=== PATIENT | female | born 1935 | race Caucasian/White ===

== ENCOUNTER 2016-11-14 18:59 | Inpatient (IN) | payer MEDICARE, BC ==
[~2016-11-14] VITALS: Ht 165.1 cm; Wt 72.3 kg
[2016-11-14 19:26] VITALS: BP 184/77
--- NOTE | 2016-11-14 19:40 | PDOC ---
Exam Guzman Demential Exam: Guzman Note: Please also refer to the separate dictated note~for this date of service dictated separately.~Patient seen individually. Discussed the patient with Nursing staff reviewed the chart.~Reviewed interim history and current functioning. Reviewed vital signs,~Labs/ Radiology~and current medications noted below. Continue current treatment with the changes noted in the dictated addendum note Assessment: Vital Signs: Vital Signs Date Time Temp Pulse Resp B/P (MAP) Pulse Ox O2 Delivery O2 Flow Rate FiO2 11/14/16 19:26 97.3 76 18 184/77 (112) 98 Room Air KARLEE GRIFFIN MD Nov 14, 2016 19:40
[2016-11-14] MEDS ORDERED: FLUO20CA16 PO (19:41)
[2016-11-14] MEDS ORDERED: ESTR42.53 VG (19:41)
[2016-11-14] MEDS ORDERED: INDA1.25 PO (19:41)
[2016-11-14] MEDS ORDERED: FISH12002 PO (19:41)
[2016-11-14] MEDS ORDERED: MEMA10TA PO (19:41)
[2016-11-14] MEDS ORDERED: METF500T4 PO (19:41)
[2016-11-14] MEDS ORDERED: IRBE300T3 PO (19:41)
[2016-11-14] MEDS ORDERED: AMOX500C PO (19:41)
[2016-11-14] MEDS ORDERED: CHOL10003 PO (19:41)
[2016-11-14] MEDS ORDERED: LUTE10TA2 PO (19:41)
[2016-11-14] MEDS ORDERED: ASPI81TA50 PO (19:41)
[2016-11-14] MEDS ORDERED: MAGN250T9 PO (19:41)
[2016-11-14] MEDS ORDERED: CYCL1DRO OU (19:41)
[2016-11-14] MEDS ORDERED: CYAN500T PO (19:41)
[2016-11-14] MEDS ORDERED: LEVO100T5 PO (19:41)
[2016-11-14] MEDS ORDERED: COCONUT OIL PO (19:41)
[2016-11-14] MEDS ORDERED: METHYL SALICYLATE/MENTHOL TOPICAL OINTMENT 29GM TUBE. TP PRN (19:45)
[2016-11-14] MEDS ORDERED: ACETAMINOPHEN 325 MG TABLET PO PRN (19:45)
[2016-11-14] MEDS ORDERED: MAG HYDROX/AL HYDROX/SIMETH 30 ML ORAL.SUSP PO PRN (19:45)
[2016-11-14] MEDS: cycloSPORINE 0.05% OPTH 1 DROP DROPERETTE OU SCH (20:21)
[2016-11-14] MEDS: MEMANTINE 10 MG TABLET. PO SCH (20:21)
[2016-11-14] MEDS: OMEGA-3 FATTY ACIDS/FISH OIL 1,000 MG CAPSULE. PO SCH (20:21)
[2016-11-14 20:41] LABS: BASO # 0.1 x10^3/uL (0.0-0.2); BASO % 1 % (0-3); EOS % 1 % (0-3); HEMATOCRIT 38.2 % (36.0-47.0); HEMOGLOBIN 12.6 g/dL (12.0-15.5); LYMPH # 1.8 x10^3/uL (1.0-4.8); LYMPH % 20 % (24-48); MEAN CORPUSCULAR HEMOGLOBIN 28 pg (25-35); MEAN CORPUSCULAR HGB CONC 33 g/dL (31-37); MEAN CORPUSCULAR VOLUME 84 fL (79-100); MONO # 0.6 x10^3/uL (0.0-1.1); MONO % 7 % (0-9); NEUT # 6.5 x10^3uL (1.8-7.7); NEUT % 72 % (31-73); PLATELET COUNT 300 x10^3/uL (140-400); RED BLOOD COUNT 4.53 x10^6/uL (3.50-5.40); RED CELL DISTRIBUTION WIDTH 13.9 % (11.5-14.5)
[2016-11-14 20:53] LABS: CALCIUM 9.1 mg/dL (8.5-10.1); CREATININE 0.6 mg/dL (0.6-1.0); GFR 95.7; MAGNESIUM 2.2 mg/dL (1.8-2.4); POTASSIUM 3.7 mmol/L (3.5-5.1); TOTAL BILIRUBIN 0.4 mg/dL (0.2-1.0); TOTAL PROTEIN 7.9 g/dL (6.4-8.2)
[2016-11-14] MEDS ORDERED: PRAV80TA2 PO (21:55)
[2016-11-14] MEDS ORDERED: UBID100C26 PO (21:55)
[2016-11-15 05:44] VITALS: BP 185/84
[2016-11-15] MEDS: LEVOTHYROXINE 100 MCG TABLET PO SCH (06:00)
--- NOTE | 2016-11-15 06:03 | EKG ---
[address] [address] Test Date: 2016-11-15 Test Time: 05:32:43 Pat Name: HERIBERTO STARKS Department: Room: [address] [place] [address] Gender: F Hat Sizer: : 1935 Requested By: KARLEE GRIFFIN Order Number: [id number] Reading MD: Celestino Rick Measurements Intervals [place] Rate: 80 P: 90 AL: 172 QRS: 49 QRSD: 76 T: 46 QT: 390 QTc: 453 Interpretive Statements SINUS RHYTHM POOR R-WAVE PROGRESSION Electronically Signed On 11-22-2016 15:40:13 CDT by Celestino Rick
[2016-11-15] MEDS: metFORMIN 500 MG TABLET PO SCH ×3 (08:00→16:33)
[2016-11-15] MEDS: MEMANTINE 10 MG TABLET. PO SCH ×2 (08:50→19:51)
[2016-11-15] MEDS: cycloSPORINE 0.05% OPTH 1 DROP DROPERETTE OU SCH ×3 (08:50→19:51)
[2016-11-15] MEDS: OMEGA-3 FATTY ACIDS/FISH OIL 1,000 MG CAPSULE. PO SCH ×3 (08:50→19:51)
[2016-11-15] MEDS: UBIDECARENONE 50 MG CAPSULE. PO SCH ×2 (08:54→09:00)
[2016-11-15] MEDS: PRAVASTATIN 20 MG TABLET. PO SCH ×2 (08:55→09:00)
[2016-11-15] MEDS: LOSARTAN 50 MG TABLET. PO SCH (08:55)
[2016-11-15] MEDS: MAGNESIUM OXIDE 400 MG TABLET PO SCH (08:55)
[2016-11-15] MEDS: CHOLECALCIFEROL (VITAMIN D3) 1,000 UNIT TABLET PO SCH ×2 (08:56→09:00)
[2016-11-15] MEDS: ASPIRIN ENTERIC COATED 81 MG TABLET.DR. PO SCH ×2 (08:56→09:00)
[2016-11-15] MEDS: CYANOCOBALAMIN (VITAMIN B-12) 250 MCG TABLET PO SCH ×2 (08:56→09:00)
[2016-11-15] MEDS: FLUoxetine HCL 20 MG CAPSULE PO SCH (08:56)
[2016-11-15] MEDS: INDAPAMIDE 1.25 MG TABLET PO SCH (08:58)
[2016-11-15] MEDS ORDERED: LUTEIN 10 MG PO SCH (09:00)
[2016-11-15] MEDS ORDERED: FLUoxetine HCL 20 MG CAPSULE PO SCH (09:00)
[2016-11-15 11:14] LABS: THYROID STIM HORMONE (TSH) 3.521 uIU/mL (0.358-3.740)
[2016-11-15 15:53] VITALS: BP 178/80
[2016-11-15 16:43] LABS: BILIRUBIN,URINE NEG (NEG); CLARITY,URINE TURBID; COLOR,URINE YELLOW; GLUCOSE,URINE NEG (NEG); NITRITE,URINE NEG (NEG); UROBILINOGEN,URINE 0.2 mg/dL (0.2 mg/dL)
[2016-11-15 16:44] LABS: BACTERIA,URINE 0 /HPF (0-FEW); SQUAMOUS EPITHELIAL CELL,UR FEW /LPF
[2016-11-15 16:45] LABS: AMORPHOUS SEDIMENT,UR PRESENT /HPF
[2016-11-15] MEDS ORDERED: ACETAMINOPHEN 325 MG TABLET PO PRN (17:36)
[2016-11-15 18:08] LABS: T3 TOTAL 85 ng/dL (71-180); THYROXINE 9.1 ug/dL (4.5-12.0)
--- NOTE | 2016-11-15 19:48 | PDOC ---
Exam Guzman Demential Exam: Guzman Note: Please also refer to the separate dictated note~for this date of service dictated separately.~Patient seen individually. Discussed the patient with Nursing staff reviewed the chart.~Reviewed interim history and current functioning. Reviewed vital signs,~Labs/ Radiology~and current medications noted below. Continue current treatment with the changes noted in the dictated addendum note Assessment: Vital Signs: Vital Signs Date Time Temp Pulse Resp B/P (MAP) Pulse Ox O2 Delivery O2 Flow Rate FiO2 11/15/16 15:53 98.9 77 18 178/80 (112) 97 11/14/16 19:26 Room Air I&O Intake and Output 11/15/16 07:00 Intake Total 150 ml Balance 150 ml Intake Oral 150 ml # Voids 1 Labs: Laboratory Tests Test 11/15/16 07:07 11/15/16 11:08 11/15/16 16:04 11/15/16 16:57 Glucose (Fingerstick) 118 mg/dL (70-99) H 211 mg/dL (70-99) H 95 mg/dL (70-99) Urine Collection Type Unknown Urine Color Yellow Urine Clarity Turbid Urine pH 7.0 Urine Specific [place] 1.020 Urine Protein Neg (NEG-TRACE) Urine Glucose (UA) Neg mg/dL (NEG) Urine Ketones (Stick) Neg mg/dL (NEG) Urine Blood Neg (NEG) Urine Nitrite Neg (NEG) Urine Bilirubin Neg (NEG) Urine Urobilinogen Dipstick 0.2 mg/dL (0.2 mg/dL) Urine Leukocyte Esterase Small (NEG) Urine RBC 3-5 /HPF (0-2) Urine WBC 11-20 /HPF (0-4) Urine Squamous Epithelial Cells Few /LPF Urine Amorphous Sediment Present /HPF Urine Bacteria 0 /HPF (0-FEW) Urine Mucus Mod /LPF Test 11/15/16 19:08 Glucose (Fingerstick) 126 mg/dL (70-99) H Current Medications: Meds: Current Medications Acetaminophen (Tylenol) 650 mg PRN Q6HRS PRN PO PAIN / TEMP; Start 11/14/16 at 19:45; Stop 11/15/16 at 17:36; Status DC Multi-Ingredient Ointment (Analgesic [place]) 1 gail PRN QID PRN TP MUSCLE PAIN; Start 11/14/16 at 19:45 Al Hydroxide/Mg Hydroxide (Mylanta Plus Xs) 15 ml PRN AFTMEALHC PRN PO DYSPEPSIA; Start 11/14/16 at 19:45 Magnesium Hydroxide (Milk Of Magnesia) 2,400 mg PRN QHS PRN PO CONSTIPATION; Start 11/14/16 at 19:45 Fluoxetine HCl (PROzac) 20 mg DAILY PO ; Start 11/15/16 at 09:00; Stop 11/15/16 at 09:00; Status DC Memantine (Namenda) 10 mg BID PO Last administered on 11/15/16 08:50; Start 11/14/16 at 21:00 Aspirin (Aspirin Enteric Coated) 81 mg DAILY PO ; Start 11/15/16 at 09:00 Vitamin D (Vitamin D3) 1,000 unit DAILY PO ; Start 11/15/16 at 09:00 Vitamin D (Vitamin D3) 50,000 unit WEEKLY PO ; Start 11/21/16 at 09:00; Stop 11/21 at 09:00; Status DC Cyclosporine (Restasis) 1 drop BID OU Last administered on 11/14/16 20:21; Start 11/14/16 at 21:00 Estradiol (Estrace) 1 gail 3X/WEEK VG ; Start 11/16/16 at 09:00 Indapamide (Lozol) 1.25 mg DAILY PO Last administered on 11/15/16 08:58; Start 11/15/16 at 09:00 Levothyroxine Sodium (Synthroid) 100 mcg DAILY06 PO Last administered on 06:00; Start 11/15/16 at 06:00 Metformin HCl (Glucophage) 500 mg BIDWMEALS PO Last administered on 11/15/16 16 :33; Start 11/15/16 at 08:00 Cyanocobalamin (Vitamin B-12) 500 mcg DAILY PO ; Start 11/15/16 at 09:00 Fish Oil (Fish Oil) 1,000 mg BID PO Last administered on 11/14/16 20:21; Start 11/14/16 at 21:00 Losartan Potassium (Cozaar) 100 mg DAILY PO Last administered on 11/15/16 08:55 ; Start 11/15/16 at 09:00 Non-Formulary Medication 10 mg DAILY PO ; Start 11/15/16 at 09:00; Stop 11/15/16 at 09:00; Status DC Magnesium Oxide (Magnesium Oxide) 200 mg DAILY PO Last administered on 08:55; Start 11/15/16 at 09:00 Fluoxetine HCl (PROzac) 40 mg DAILY PO Last administered on 11/15/16 08:56; Start 11/15/16 at 09:00 Vitamin D (Vitamin D3) 50,000 unit Q2WKS PO ; Start 11/21/16 at 09:00 Pravastatin Sodium (Pravachol) 80 mg DAILY PO ; Start 11/15/16 at 09:00 Coenzyme Q10 (Coenzyme Q10) 100 mg DAILY PO ; Start 11/15/16 at 09:00 Acetaminophen (Tylenol) 650 mg PRN Q6HRS PRN PO PAIN / TEMP; Start 11/15/16 at 17:36 Active Scripts Active Reported Coq-10 (Ubidecarenone) 100 Mg Capsule 100 Mg PO DAILY Pravastatin Sodium 80 Mg Tablet 80 Mg PO DAILY Restasis (Cyclosporine) 1 Each Droperette 1 Drop OU BID Namenda (Memantine Hcl) 10 Mg Tablet 10 Mg PO BID Metformin Hcl 500 Mg Tablet 500 Mg PO BIDWMEALS Magnesium Oxide 250 Mg Tablet 250 Mg PO DAILY Lutein 10 Mg Tablet 10 Mg PO DAILY Levothyroxine Sodium 100 Mcg Tablet 100 Mcg PO DAILY06 [place] 3-6-9 1,200 mg Softgel (Fish Oil/Borage/Flax/Om3,6,9#1) 1,200 Mg Capsule 1 ,200 Mg PO BID Amoxicillin 500 Mg Capsule 500 Mg PO PRN DAILY PRN 4 Days [Coconut Oil] 1 Tsp PO BID Vitamin D3 (Cholecalciferol (Vitamin D3)) 50,000 Unit Capsule 50,000 Unit PO Q2WKS Vitamin D3 (Cholecalciferol (Vitamin D3)) 1,000 Unit Tablet 2,000 Unit PO DAILY Vitamin B-12 (Cyanocobalamin (Vitamin B-12)) 500 Mcg Tablet 500 Mcg PO DAILY Prozac (Fluoxetine Hcl) 20 Mg Capsule 40 Mg PO DAILY Irbesartan 300 Mg Tablet 300 Mg PO DAILY Indapamide 1.25 Mg Tablet 1.25 Mg PO DAILY Estrace (Estradiol) 42.5 Gm Cream.appl 1 Gm VG 3X/WEEK Aspir-Low (Aspirin) 81 Mg Tablet.dr 81 Mg PO DAILY Diagnosis: Problems: (1) Anxiety disorder (2) Psychotic depression (3) Major depressive disorder, recurrent episode (4) Psychosis, atypical (5) Mild cognitive disorder KARLEE GRIFFIN MD Nov 15, 2016 19:48
--- NOTE | 2016-11-15 22:55 | HP ---
ADMIT DATE: 11/15/2016 PSYCHIATRIC ADMISSION HISTORY/EVALUATION This note covers the elements not covered in my initial of 11/15/2016. IDENTIFYING DATA: The patient is an 81-year-old female referred from [facility] where she presented from home in [facility] on account of increasing delusional thought processes, stating that she was . The patient has been tearful, anxious, resistive, and increasingly paranoid. The patient had been living at [facility] for a short period of time, has a lifelong history of depression and anxiety. This seems to have resurfaced with significant additional psychotic symptoms/delusions. The patient was unmanageable at the facility due to her presentation, had failed outpatient psychiatric interventions resulting in that referral to the ER and then admission at [facility] and then referral to us. The patient was seen individually evening of 11/15/2016, for this evaluation, discussed with the nursing staff, reviewed current and past records. CHIEF COMPLAINT: "I do not want to talk." HISTORY: The patient was anxious, tearful, would frequently shut her eyes as I met with her. She did participate in the assessment until one-point way she refused to talk any further and closed her eyes. HISTORY OF PRESENT ILLNESS: The patient has a history of depression, recurrent and moderate to severe with psychotic features. More recently, she has been stating she has been . She is delusional, anxious. She is having sleep and appetite changes. No active psychotic symptoms, suicidal or homicidal ideation. No clear history of bipolar disorder. She might have had some short-term memory deficits, but has been reasonably oriented from the information available. PAST PSYCHIATRIC HISTORY: Positive for recurrent major depressive disorder with psychotic features. The patient has a "lifelong history of anxiety and depression." PAST MEDICAL HISTORY: Hypertension, hyperlipidemia, diabetes mellitus, and hypothyroidism. ALLERGIES: LEVAQUIN, MACRODANTIN. CURRENT PSYCHOTROPICS: Prozac 40 mg a day, Namenda 10 mg twice a day. CODE STATUS: DNR. DIET: Regular. Ambulates with assistance or wheelchair. FAMILY HISTORY: Noncontributory. SOCIAL HISTORY: The patient has their adult children on the [facility]. No alcohol or drug abuse, physical, sexual or elder abuse history is noted. She is not known to be a perpetrator. MENTAL STATUS EXAM: The patient was seen individually evening of 11/15/2016. She was aware, it was 11/15/2016. She is depressed. On questioning admits to this, but frequently shuts her eyes. Insight, judgment, recent memory is impaired. Language function intact. Attention span short. Mood and affect depressed, delusional, intellect average. Insight limited, judgment marginal, but no active suicidal or homicidal ideation. IMPRESSION: Major depressive disorder, recurrent, severe with psychotic features; anxiety disorder, unspecified; impulse control disorder, unspecified; cognitive disorder, unspecified. Rest diagnoses as above. PLAN: Admit to the geropsychiatry unit at [facility]. I will see the patient daily individually from a psychiatric standpoint, medical followup per Dr. Mckinley/Dr. Morrell. We will observe the patient's baseline, then adjust her psychotropics. We will consider changing Prozac to Cymbalta as more effective SNRI antidepressants as opposed to the SSRI Prozac, continue Namenda, consider augmentation with Abilify, which would additionally act as an atypical antipsychotic. We will consider all of this post-baseline assessment. KARLEE GRIFFIN MD DR: VENKAT/heron JOB#: [id number] / [id number]
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
[2016-11-16 02:09] LABS: HEMOGLOBIN A1C 6.1 % (4.8-5.6)
[2016-11-16] MEDS: LEVOTHYROXINE 100 MCG TABLET PO SCH (05:14)
[2016-11-16 05:58] VITALS: BP 188/98
[2016-11-16] MEDS: metFORMIN 500 MG TABLET PO SCH ×5 (07:44→17:00)
[2016-11-16] MEDS: PRAVASTATIN 20 MG TABLET. PO SCH (07:47)
[2016-11-16] MEDS: cycloSPORINE 0.05% OPTH 1 DROP DROPERETTE OU SCH ×2 (07:47→19:45)
[2016-11-16] MEDS: MAGNESIUM OXIDE 400 MG TABLET PO SCH (07:48)
[2016-11-16] MEDS: ASPIRIN ENTERIC COATED 81 MG TABLET.DR. PO SCH (07:48)
[2016-11-16] MEDS: CHOLECALCIFEROL (VITAMIN D3) 1,000 UNIT TABLET PO SCH (07:48)
[2016-11-16] MEDS: MEMANTINE 10 MG TABLET. PO SCH ×2 (07:48→19:45)
[2016-11-16] MEDS: FLUoxetine HCL 20 MG CAPSULE PO SCH (07:49)
[2016-11-16] MEDS: LOSARTAN 50 MG TABLET. PO SCH (07:50)
[2016-11-16] MEDS: CYANOCOBALAMIN (VITAMIN B-12) 250 MCG TABLET PO SCH (07:51)
[2016-11-16] MEDS: OMEGA-3 FATTY ACIDS/FISH OIL 1,000 MG CAPSULE. PO SCH ×2 (07:51→19:45)
[2016-11-16] MEDS: UBIDECARENONE 50 MG CAPSULE. PO SCH (07:51)
[2016-11-16] MEDS: INDAPAMIDE 1.25 MG TABLET PO SCH (07:51)
[2016-11-16] MEDS: ESTRADIOL 0.01% VAGINAL CREAM 42.5GM TUBE. VG SCH (08:20)
[2016-11-16 16:20] VITALS: BP 131/76
--- NOTE | 2016-11-16 18:28 | RAD ---
EXAM: CT head without contrast HISTORY: 989911.001 Mental status changes, confusion. No priors. COMPARISON: None. TECHNIQUE: Computed tomographic images of the head were obtained without contrast. PQRS compliance statement: One or more of the following individualized dose reduction techniques were utilized for this examination: 1. Automated exposure control 2. Adjustment of the mA and/or kV according to patient size 3. Use of iterative reconstruction technique FINDINGS: There is no acute intracranial process identified. Specifically, there are no intracranial blood products, extra-axial fluid collections, mass effect or midline shift. Ventricles and basilar cisterns are maintained. There are areas of decreased attenuation within the cerebral white matter, nonspecific and likely related to chronic small vessel disease. The visualized portions of the orbits, paranasal sinuses and mastoid air cells are unremarkable. No suspicious calvarial lesion is seen. IMPRESSION: No acute intracranial findings. Electronically signed by: Mayuri Khanna MD (11/16/2016 6:25 PM) [facility]
--- NOTE | 2016-11-16 20:02 | PDOC ---
Exam Guzman Demential Exam: Guzman Note: Please also refer to the separate dictated note~for this date of service dictated separately.~Patient seen individually. Discussed the patient with Nursing staff reviewed the chart.~Reviewed interim history and current functioning. Reviewed vital signs,~Labs/ Radiology~and current medications noted below. Continue current treatment with the changes noted in the dictated addendum note Assessment: Vital Signs: Vital Signs Date Time Temp Pulse Resp B/P (MAP) Pulse Ox O2 Delivery O2 Flow Rate FiO2 11/16/16 16:20 97.9 77 18 131/76 (94) 97 0.0 11/14/16 19:26 Room Air I&O Intake and Output 11/16/16 07:00 Intake Total 360 ml Balance 360 ml Intake Oral 360 ml # Bowel Movements 1 Labs: Laboratory Tests Test 11/16/16 07:52 11/16/16 11:45 11/16/16 17:15 11/16/16 19:13 Glucose (Fingerstick) 109 mg/dL (70-99) H 85 mg/dL (70-99) 120 mg/dL (70-99) H 196 mg/dL (70-99) H Current Medications: Meds: Current Medications Acetaminophen (Tylenol) 650 mg PRN Q6HRS PRN PO PAIN / TEMP; Start 11/14/16 at 19:45; Stop 11/15/16 at 17:36; Status DC Multi-Ingredient Ointment (Analgesic [place]) 1 gail PRN QID PRN TP MUSCLE PAIN; Start 11/14/16 at 19:45 Al Hydroxide/Mg Hydroxide (Mylanta Plus Xs) 15 ml PRN AFTMEALHC PRN PO DYSPEPSIA; Start 11/14/16 at 19:45 Magnesium Hydroxide (Milk Of Magnesia) 2,400 mg PRN QHS PRN PO CONSTIPATION; Start 11/14/16 at 19:45 Fluoxetine HCl (PROzac) 20 mg DAILY PO ; Start 11/15/16 at 09:00; Stop 11/15/16 at 09:00; Status DC Memantine (Namenda) 10 mg BID PO Last administered on 11/16/16 19:45; Start 11/14/16 at 21:00 Aspirin (Aspirin Enteric Coated) 81 mg DAILY PO Last administered on 11/16/16 07:48; Start 11/15/16 at 09:00 Vitamin D (Vitamin D3) 1,000 unit DAILY PO Last administered on 11/16/16 07:48 ; Start 11/15/16 at 09:00 Vitamin D (Vitamin D3) 50,000 unit WEEKLY PO ; Start 11/21/16 at 09:00; Stop 11/21 at 09:00; Status DC Cyclosporine (Restasis) 1 drop BID OU Last administered on 11/16/16 19:45; Start 11/14/16 at 21:00 Estradiol (Estrace) 1 gail 3X/WEEK VG ; Start 11/16/16 at 09:00 Indapamide (Lozol) 1.25 mg DAILY PO Last administered on 11/16/16 07:51; Start 11/15/16 at 09:00 Levothyroxine Sodium (Synthroid) 100 mcg DAILY06 PO Last administered on 05:14; Start 11/15/16 at 06:00 Metformin HCl (Glucophage) 500 mg BIDWMEALS PO Last administered on 11/15/16 16 :33; Start 11/15/16 at 08:00 Cyanocobalamin (Vitamin B-12) 500 mcg DAILY PO Last administered on 11/16/16 07 :51; Start 11/15/16 at 09:00 Fish Oil (Fish Oil) 1,000 mg BID PO Last administered on 11/16/16 19:45; Start 11/14/16 at 21:00 Losartan Potassium (Cozaar) 100 mg DAILY PO Last administered on 11/16/16 07:50 ; Start 11/15/16 at 09:00 Non-Formulary Medication 10 mg DAILY PO ; Start 11/15/16 at 09:00; Stop 11/15/16 at 09:00; Status DC Magnesium Oxide (Magnesium Oxide) 200 mg DAILY PO Last administered on 07:48; Start 11/15/16 at 09:00 Fluoxetine HCl (PROzac) 40 mg DAILY PO Last administered on 11/16/16 07:49; Start 11/15/16 at 09:00 Vitamin D (Vitamin D3) 50,000 unit Q2WKS PO ; Start 11/21/16 at 09:00 Pravastatin Sodium (Pravachol) 80 mg DAILY PO Last administered on 11/16/16 07: 47; Start 11/15/16 at 09:00 Coenzyme Q10 (Coenzyme Q10) 100 mg DAILY PO Last administered on 11/16/16t 07:51 ; Start 11/15/16 at 09:00 Acetaminophen (Tylenol) 650 mg PRN Q6HRS PRN PO PAIN / TEMP; Start 11/15/16 at 17:36 Clonidine HCl (Catapres Tts-2) 1 patch WEEKLY TD ; Start 11/17/16 at 09:00 Risperidone (RisperDAL) 0.25 mg HS SL ; Start 11/16/16 at 21:00 Active Scripts Active Reported Coq-10 (Ubidecarenone) 100 Mg Capsule 100 Mg PO DAILY Pravastatin Sodium 80 Mg Tablet 80 Mg PO DAILY Restasis (Cyclosporine) 1 Each Droperette 1 Drop OU BID Namenda (Memantine Hcl) 10 Mg Tablet 10 Mg PO BID Metformin Hcl 500 Mg Tablet 500 Mg PO BIDWMEALS Magnesium Oxide 250 Mg Tablet 250 Mg PO DAILY Lutein 10 Mg Tablet 10 Mg PO DAILY Levothyroxine Sodium 100 Mcg Tablet 100 Mcg PO DAILY06 [place] 3-6-9 1,200 mg Softgel (Fish Oil/Borage/Flax/Om3,6,9#1) 1,200 Mg Capsule 1 ,200 Mg PO BID Amoxicillin 500 Mg Capsule 500 Mg PO PRN DAILY PRN 4 Days [Coconut Oil] 1 Tsp PO BID Vitamin D3 (Cholecalciferol (Vitamin D3)) 50,000 Unit Capsule 50,000 Unit PO Q2WKS Vitamin D3 (Cholecalciferol (Vitamin D3)) 1,000 Unit Tablet 2,000 Unit PO DAILY Vitamin B-12 (Cyanocobalamin (Vitamin B-12)) 500 Mcg Tablet 500 Mcg PO DAILY Prozac (Fluoxetine Hcl) 20 Mg Capsule 40 Mg PO DAILY Irbesartan 300 Mg Tablet 300 Mg PO DAILY Indapamide 1.25 Mg Tablet 1.25 Mg PO DAILY Estrace (Estradiol) 42.5 Gm Cream.appl 1 Gm VG 3X/WEEK Aspir-Low (Aspirin) 81 Mg Tablet. 81 Mg PO DAILY Diagnosis: Problems: (1) Anxiety disorder (2) Psychotic depression (3) Major depressive disorder, recurrent episode (4) Psychosis, atypical (5) Mild cognitive disorder KARLEE GRIFFIN MD Nov 16, 2016 20:02
[2016-11-16] MEDS ORDERED: risperiDONE ORAL 1 MG/ML 30ml BOTTLE. SL SCH (21:00)
--- NOTE | 2016-11-17 01:15 | ACF ---
Admission Criteria Forms PSYCHIATRIC DISORDERS Clinical Indications for Inpatient Care (Place 'X' for any and all applicable criteria): Ongoing inpatient care may be needed for 1 or more of the following(1)(2)(3)(4)( 6)(7)(8): [ ]I. Danger to self or others not manageable at lower level of care. [ ]II. Grave disability (eg, inability to perform self care necessary at lower level of care) [ ]III. Agitation or inappropriate behavior interfering with care for primary condition (eg, attempting to discontinue lines or drains prematurely, unable to cooperate with respiratory care) [x]IV. Severe disability or disorder indicated by ALL of the following: [x]a) Severe behavioral health disorder-related symptoms or condition indicated by 1 or more of the following: [ ]i) Severe problem with cognition, memory, judgment, or impulse control [x]ii) Severe clinical manifestations (eg, hallucinations, delusions, other acute psychotic symptoms, soraya, extreme agitation or anxiety) [x]b) Patient management at lower level of care is not feasible until acute intervention or modification is initiated. Extended stay beyond goal length of stay for the primary condition may be needed untilALLof the following are present(1)(2)(3)(4)(722)(23): [ ]a) Danger to self or others is absent or manageable at lower level of care [ ]b) Behavior crisis management, including physical or chemical restraints, is required and is not available at a lower level of care. [ ]c) Behavioral symptoms (e.g., agitation, somnolence, inappropriate behavior) are present, and are not manageable at a lower level of care. [ ]d) Patient cannot understand follow-up treatment and crisis plan. [ ]e) Provider and supports are sufficiently available at lower level of care. [ ]f) Patient can participate (e.g., verify absence of plan for harm) and is in needed of monitoring. The original [facility] content created by [facility] [employer] has been revised. The portions of the content which have been revised are identified through the use of italic text, and [employer] has neither reviewed nor approved the modified material. All other unmodified content is copyright [facility] [employer]. Please see references footnoted in the original [facility] edition 2015 Admission Criteria Met?: Yes SOHAIL QUEVEDO Nov 17, 2016 01:15
[2016-11-17 06:21] VITALS: BP 179/79
[2016-11-17] MEDS: LEVOTHYROXINE 100 MCG TABLET PO SCH (06:34)
[2016-11-17] MEDS: metFORMIN 500 MG TABLET PO SCH ×4 (08:00→17:19)
[2016-11-17] MEDS: CYANOCOBALAMIN (VITAMIN B-12) 250 MCG TABLET PO SCH ×2 (08:17→09:00)
[2016-11-17] MEDS: MEMANTINE 10 MG TABLET. PO SCH ×3 (08:18→20:01)
[2016-11-17] MEDS: PRAVASTATIN 20 MG TABLET. PO SCH ×2 (08:18→09:00)
[2016-11-17] MEDS: FLUoxetine HCL 20 MG CAPSULE PO SCH ×2 (08:18→09:00)
[2016-11-17] MEDS: LOSARTAN 50 MG TABLET. PO SCH ×2 (08:18→09:00)
[2016-11-17] MEDS: OMEGA-3 FATTY ACIDS/FISH OIL 1,000 MG CAPSULE. PO SCH ×3 (08:19→20:00)
[2016-11-17] MEDS: UBIDECARENONE 50 MG CAPSULE. PO SCH ×2 (08:19→09:00)
[2016-11-17] MEDS: ASPIRIN ENTERIC COATED 81 MG TABLET.DR. PO SCH ×2 (08:20→09:00)
[2016-11-17] MEDS: MAGNESIUM OXIDE 400 MG TABLET PO SCH ×2 (08:20→09:00)
[2016-11-17] MEDS: CHOLECALCIFEROL (VITAMIN D3) 1,000 UNIT TABLET PO SCH ×2 (08:20→09:00)
[2016-11-17] MEDS: cycloSPORINE 0.05% OPTH 1 DROP DROPERETTE OU SCH ×3 (08:20→20:01)
[2016-11-17] MEDS: cloNIDine TTS-2 1 PATCH PATCH TD SCH (08:22)
[2016-11-17] MEDS: INDAPAMIDE 1.25 MG TABLET PO SCH ×2 (08:22→09:00)
[2016-11-17] MEDS ORDERED: CLON1PAT2 TD (12:14)
[2016-11-17 16:31] VITALS: BP 166/71
--- NOTE | 2016-11-17 21:51 | PN ---
DATE: 11/16/2016 PSYCHIATRIC PROGRESS NOTE This is a late entry for 11/16/2016, covers elements not covered in my initial note. SUBJECTIVE: I met with the patient at some length individually the evening of 11/16/2016. The patient slept 5 hours previous night. Appetite is fair. Often refuses medications. We will be checking a CT head since her psychologist mentioned he felt there has been a significant change in her mental status at [facility]. REVIEW OF SYSTEMS: No CV, , pulmonary, eye system symptoms on review. MENTAL STATUS EXAM: Oriented to herself and situation. She knew the year was 2016, professed she did not know the month. As the day before when I asked her, she certainly knew the month. Refuses medications at times, has started on clonidine patch for her hypertension. Somewhat dismissive as I met with her, and when I have asked her about orientation questions, she would ask those same questions back of me, "you tell me if you know it." Somewhat irritable. Speech is coherent, abstraction fair, computation impaired, language function intact. No active suicidal or homicidal ideation. Still depressed, tearful at times. She talked about living at the independent living at [facility]. LABORATORY DATA: Reviewed. IMPRESSION: Major depressive disorder with psychotic features; anxiety disorder, unspecified; cognitive disorder, unspecified. Rest unchanged. PLAN: Continue current psychotropics, start Risperdal 0.25 mg at bedtime. Maintain Prozac 40 mg a day, and Namenda 10 mg b.i.d. We will make further adjustments as clinically indicated. KARLEE GRIFFIN MD DR: VENKAT/heron JOB#: [id number] / [id number]
--- NOTE | 2016-11-17 22:20 | PDOC ---
Exam Guzman Demential Exam: Guzman Note: Please also refer to the separate dictated note~for this date of service dictated separately.~Patient seen individually. Discussed the patient with Nursing staff reviewed the chart.~Reviewed interim history and current functioning. Reviewed vital signs,~Labs/ Radiology~and current medications noted below. Continue current treatment with the changes noted in the dictated addendum note Assessment: Vital Signs: Vital Signs Date Time Temp Pulse Resp B/P (MAP) Pulse Ox O2 Delivery O2 Flow Rate FiO2 11/17/16 16:31 98.3 74 18 166/71 (102) 100 11/16/16 16:20 0.0 11/14/16 19:26 Room Air I&O Intake and Output 11/17/16 07:00 Intake Total 840 ml Balance 840 ml Intake Oral 840 ml Labs: Laboratory Tests Test 11/17/16 07:42 11/17/16 11:46 11/17/16 16:47 11/17/16 19:21 Glucose (Fingerstick) 113 mg/dL (70-99) H 113 mg/dL (70-99) H 113 mg/dL (70-99) H 111 mg/dL (70-99) H Current Medications: Meds: Current Medications Acetaminophen (Tylenol) 650 mg PRN Q6HRS PRN PO PAIN / TEMP; Start 11/14/16 at 19:45; Stop 11/15/16 at 17:36; Status DC Multi-Ingredient Ointment (Analgesic [place]) 1 gail PRN QID PRN TP MUSCLE PAIN; Start 11/14/16 at 19:45 Al Hydroxide/Mg Hydroxide (Mylanta Plus Xs) 15 ml PRN AFTMEALHC PRN PO DYSPEPSIA; Start 11/14/16 at 19:45 Magnesium Hydroxide (Milk Of Magnesia) 2,400 mg PRN QHS PRN PO CONSTIPATION; Start 11/14/16 at 19:45 Fluoxetine HCl (PROzac) 20 mg DAILY PO ; Start 11/15/16 at 09:00; Stop 11/15/16 at 09:00; Status DC Memantine (Namenda) 10 mg BID PO Last administered on 11/17/16 20:01; Start 11/14/16 at 21:00 Aspirin (Aspirin Enteric Coated) 81 mg DAILY PO Last administered on 11/16/16 07:48; Start 11/15/16 at 09:00 Vitamin D (Vitamin D3) 1,000 unit DAILY PO Last administered on 11/16/16 07:48 ; Start 11/15/16 at 09:00 Vitamin D (Vitamin D3) 50,000 unit WEEKLY PO ; Start 11/21/16 at 09:00; Stop 11/21 at 09:00; Status DC Cyclosporine (Restasis) 1 drop BID OU Last administered on 11/17/16 20:01; Start 11/14/16 at 21:00 Estradiol (Estrace) 1 gail 3X/WEEK VG ; Start 11/16/16 at 09:00 Indapamide (Lozol) 1.25 mg DAILY PO Last administered on 11/16/16 07:51; Start 11/15/16 at 09:00 Levothyroxine Sodium (Synthroid) 100 mcg DAILY06 PO Last administered on 06:34; Start 11/15/16 at 06:00 Metformin HCl (Glucophage) 500 mg BIDWMEALS PO Last administered on 11/15/16 16 :33; Start 11/15/16 at 08:00 Cyanocobalamin (Vitamin B-12) 500 mcg DAILY PO Last administered on 11/16/16 07 :51; Start 11/15/16 at 09:00 Fish Oil (Fish Oil) 1,000 mg BID PO Last administered on 11/17/16 20:00; Start 11/14/16 at 21:00 Losartan Potassium (Cozaar) 100 mg DAILY PO Last administered on 11/16/16 07:50 ; Start 11/15/16 at 09:00 Non-Formulary Medication 10 mg DAILY PO ; Start 11/15/16 at 09:00; Stop 11/15/16 at 09:00; Status DC Magnesium Oxide (Magnesium Oxide) 200 mg DAILY PO Last administered on 07:48; Start 11/15/16 at 09:00 Fluoxetine HCl (PROzac) 40 mg DAILY PO Last administered on 11/16/16 07:49; Start 11/15/16 at 09:00; Stop 11/17/16 at 19:20; Status DC Vitamin D (Vitamin D3) 50,000 unit Q2WKS PO ; Start 11/21/16 at 09:00 Pravastatin Sodium (Pravachol) 80 mg DAILY PO Last administered on 11/16/16 07: 47; Start 11/15/16 at 09:00 Coenzyme Q10 (Coenzyme Q10) 100 mg DAILY PO Last administered on 11/16/16 07:51 ; Start 11/15/16 at 09:00 Acetaminophen (Tylenol) 650 mg PRN Q6HRS PRN PO PAIN / TEMP; Start 11/15/16 at 17:36 Clonidine HCl (Catapres Tts-2) 1 patch WEEKLY TD Last administered on 11/17/16 08:22; Start 11/17/16 at 09:00 Risperidone (RisperDAL) 0.25 mg HS SL ; Start 11/16/16 at 21:00; Stop 11/17/16 at 19:21; Status DC Risperidone (RisperDAL) 0.25 mg DAILY SL ; Start 11/18/16 at 09:00 Duloxetine HCl (Cymbalta) 30 mg DAILY PO ; Start 11/18/16 at 09:00; Stop 11/21/16 at 08:59 Duloxetine HCl (Cymbalta) 60 mg DAILY PO ; Start 11/21/16 at 09:00 Active Scripts Active Reported Coq-10 (Ubidecarenone) 100 Mg Capsule 100 Mg PO DAILY Pravastatin Sodium 80 Mg Tablet 80 Mg PO DAILY Restasis (Cyclosporine) 1 Each Droperette 1 Drop OU BID Namenda (Memantine Hcl) 10 Mg Tablet 10 Mg PO BID Metformin Hcl 500 Mg Tablet 500 Mg PO BIDWMEALS Magnesium Oxide 250 Mg Tablet 250 Mg PO DAILY Lutein 10 Mg Tablet 10 Mg PO DAILY Levothyroxine Sodium 100 Mcg Tablet 100 Mcg PO DAILY06 [place] 3-6-9 1,200 mg Softgel (Fish Oil/Borage/Flax/Om3,6,9#1) 1,200 Mg Capsule 1 ,200 Mg PO BID Amoxicillin 500 Mg Capsule 500 Mg PO PRN DAILY PRN 4 Days [Coconut Oil] 1 Tsp PO BID Vitamin D3 (Cholecalciferol (Vitamin D3)) 50,000 Unit Capsule 50,000 Unit PO Q2WKS Vitamin D3 (Cholecalciferol (Vitamin D3)) 1,000 Unit Tablet 2,000 Unit PO DAILY Vitamin B-12 (Cyanocobalamin (Vitamin B-12)) 500 Mcg Tablet 500 Mcg PO DAILY Prozac (Fluoxetine Hcl) 20 Mg Capsule 40 Mg PO DAILY Irbesartan 300 Mg Tablet 300 Mg PO DAILY Indapamide 1.25 Mg Tablet 1.25 Mg PO DAILY Estrace (Estradiol) 42.5 Gm Cream.appl 1 Gm VG 3X/WEEK Aspir-Low (Aspirin) 81 Mg Tablet.dr 81 Mg PO DAILY Diagnosis: Problems: (1) Anxiety disorder (2) Psychotic depression (3) Major depressive disorder, recurrent episode (4) Psychosis, atypical (5) Mild cognitive disorder KARLEE GRIFFIN MD Nov 17, 2016 22:20
[2016-11-18] MEDS: LEVOTHYROXINE 100 MCG TABLET PO SCH (06:01)
[2016-11-18 06:22] VITALS: BP 175/81
[2016-11-18] MEDS: MEMANTINE 10 MG TABLET. PO SCH ×4 (08:03→20:47)
[2016-11-18] MEDS: metFORMIN 500 MG TABLET PO SCH ×2 (08:03→17:00)
[2016-11-18] MEDS: UBIDECARENONE 50 MG CAPSULE. PO SCH ×2 (08:03→09:00)
[2016-11-18] MEDS: cycloSPORINE 0.05% OPTH 1 DROP DROPERETTE OU SCH ×3 (08:03→20:47)
[2016-11-18] MEDS: LOSARTAN 50 MG TABLET. PO SCH ×2 (08:04→09:00)
[2016-11-18] MEDS: MAGNESIUM OXIDE 400 MG TABLET PO SCH ×2 (08:04→09:00)
[2016-11-18] MEDS: CHOLECALCIFEROL (VITAMIN D3) 1,000 UNIT TABLET PO SCH ×2 (08:04→09:00)
[2016-11-18] MEDS: CYANOCOBALAMIN (VITAMIN B-12) 250 MCG TABLET PO SCH ×2 (08:05→09:00)
[2016-11-18] MEDS: OMEGA-3 FATTY ACIDS/FISH OIL 1,000 MG CAPSULE. PO SCH ×4 (08:05→20:47)
[2016-11-18] MEDS: ASPIRIN ENTERIC COATED 81 MG TABLET.DR. PO SCH ×2 (08:05→09:00)
[2016-11-18] MEDS: PRAVASTATIN 20 MG TABLET. PO SCH ×2 (08:05→09:00)
[2016-11-18] MEDS: DULoxetine HCL 30 MG CAPSULE.DR PO SCH ×2 (08:07→09:00)
[2016-11-18] MEDS: INDAPAMIDE 1.25 MG TABLET PO SCH ×2 (08:07→09:00)
[2016-11-18] MEDS: risperiDONE ORAL 1 MG/ML 30ml BOTTLE. SL SCH (08:09)
[2016-11-18 09:12] LABS: ALBUMIN 3.3 g/dL (3.4-5.0); ALBUMIN/GLOBULIN RATIO 0.9 (1.0-1.7); CREATININE 0.7 mg/dL (0.6-1.0); GFR 80.1; POTASSIUM 4.1 mmol/L (3.5-5.1); TOTAL BILIRUBIN 0.4 mg/dL (0.2-1.0); TOTAL PROTEIN 6.9 g/dL (6.4-8.2)
[2016-11-18 15:52] VITALS: BP 115/73
--- NOTE | 2016-11-18 19:52 | PDOC ---
Exam Guzman Demential Exam: Guzman Note: Please also refer to the separate dictated note~for this date of service dictated separately.~Patient seen individually. Discussed the patient with Nursing staff reviewed the chart.~Reviewed interim history and current functioning. Reviewed vital signs,~Labs/ Radiology~and current medications noted below. Continue current treatment with the changes noted in the dictated addendum note Assessment: Vital Signs: Vital Signs Date Time Temp Pulse Resp B/P (MAP) Pulse Ox O2 Delivery O2 Flow Rate FiO2 11/18/16 15:52 97.3 73 22 115/73 (87) 99 11/16/16 16:20 0.0 11/14/16 19:26 Room Air I&O Intake and Output 11/18/16 07:00 Intake Total 0 ml Balance 0 ml Intake Oral 0 ml Labs: Laboratory Tests Test 11/18/16 06:32 11/18/16 07:38 11/18/16 12:03 Sodium Level 140 mmol/L (136-145) Potassium Level 4.1 mmol/L (3.5-5.1) Chloride Level 103 mmol/L (98-107) Carbon Dioxide Level 31 mmol/L (21-32) Anion Gap 6 (6-14) Blood Urea Nitrogen 20 mg/dL (7-20) Creatinine 0.7 mg/dL (0.6-1.0) Estimated GFR (Cockcroft-Gault) 80.1 BUN/Creatinine Ratio 29 (6-20) H Glucose Level 102 mg/dL (70-99) H Calcium Level 9.0 mg/dL (8.5-10.1) Total Bilirubin 0.4 mg/dL (0.2-1.0) Aspartate Amino Transferase (AST) 27 U/L (15-37) Alanine Aminotransferase (ALT) 44 U/L (14-59) Alkaline Phosphatase 77 U/L (46-116) Total Protein 6.9 g/dL (6.4-8.2) Albumin 3.3 g/dL (3.4-5.0) L Albumin/Globulin Ratio 0.9 (1.0-1.7) L Glucose (Fingerstick) 96 mg/dL (70-99) 116 mg/dL (70-99) H Current Medications: Meds: Current Medications Acetaminophen (Tylenol) 650 mg PRN Q6HRS PRN PO PAIN / TEMP; Start 11/14/16 at 19:45; Stop 11/15/16 at 17:36; Status DC Multi-Ingredient Ointment (Analgesic [place]) 1 gail PRN QID PRN TP MUSCLE PAIN; Start 11/14/16 at 19:45 Al Hydroxide/Mg Hydroxide (Mylanta Plus Xs) 15 ml PRN AFTMEALHC PRN PO DYSPEPSIA; Start 11/14/16 at 19:45 Magnesium Hydroxide (Milk Of Magnesia) 2,400 mg PRN QHS PRN PO CONSTIPATION; Start 11/14/16 at 19:45 Fluoxetine HCl (PROzac) 20 mg DAILY PO ; Start 11/15/16 at 09:00; Stop 11/15/16 at 09:00; Status DC Memantine (Namenda) 10 mg BID PO Last administered on 11/17/16 20:01; Start 11/14/16 at 21:00 Aspirin (Aspirin Enteric Coated) 81 mg DAILY PO Last administered on 11/16/16 07:48; Start 11/15/16 at 09:00 Vitamin D (Vitamin D3) 1,000 unit DAILY PO Last administered on 11/16/16 07:48 ; Start 11/15/16 at 09:00 Vitamin D (Vitamin D3) 50,000 unit WEEKLY PO ; Start 11/21/16 at 09:00; Stop 11/21 at 09:00; Status DC Cyclosporine (Restasis) 1 drop BID OU Last administered on 11/18/16 08:03; Start 11/14/16 at 21:00 Estradiol (Estrace) 1 gail 3X/WEEK VG ; Start 11/16/16 at 09:00 Indapamide (Lozol) 1.25 mg DAILY PO Last administered on 11/16/16 07:51; Start 11/15/16 at 09:00 Levothyroxine Sodium (Synthroid) 100 mcg DAILY06 PO Last administered on 06:01; Start 11/15/16 at 06:00 Metformin HCl (Glucophage) 500 mg BIDWMEALS PO Last administered on 11/18/16 08 :03; Start 11/15/16 at 08:00 Cyanocobalamin (Vitamin B-12) 500 mcg DAILY PO Last administered on 11/16/16 07 :51; Start 11/15/16 at 09:00 Fish Oil (Fish Oil) 1,000 mg BID PO Last administered on 11/17/16 20:00; Start 11/14/16 at 21:00 Losartan Potassium (Cozaar) 100 mg DAILY PO Last administered on 11/16/16 07:50 ; Start 11/15/16 at 09:00 Non-Formulary Medication 10 mg DAILY PO ; Start 11/15/16 at 09:00; Stop 11/15/16 at 09:00; Status DC Magnesium Oxide (Magnesium Oxide) 200 mg DAILY PO Last administered on 07:48; Start 11/15/16 at 09:00 Fluoxetine HCl (PROzac) 40 mg DAILY PO Last administered on 11/16/16 07:49; Start 11/15/16 at 09:00; Stop 11/17/16 at 19:20; Status DC Vitamin D (Vitamin D3) 50,000 unit Q2WKS PO ; Start 11/21/16 at 09:00 Pravastatin Sodium (Pravachol) 80 mg DAILY PO Last administered on 11/16/16 07: 47; Start 11/15/16 at 09:00 Coenzyme Q10 (Coenzyme Q10) 100 mg DAILY PO Last administered on 11/16/16 07:51 ; Start 11/15/16 at 09:00 Acetaminophen (Tylenol) 650 mg PRN Q6HRS PRN PO PAIN / TEMP; Start 11/15/16 at 17:36 Clonidine HCl (Catapres Tts-2) 1 patch WEEKLY TD Last administered on 11/17/16 08:22; Start 11/17/16 at 09:00 Risperidone (RisperDAL) 0.25 mg HS SL ; Start 11/16/16 at 21:00; Stop 11/17/16 at 19:21; Status DC Risperidone (RisperDAL) 0.25 mg DAILY SL Last administered on 11/18/16 08:09; Start 11/18/16 at 09:00 Duloxetine HCl (Cymbalta) 30 mg DAILY PO ; Start 11/18/16 at 09:00; Stop 11/21/16 at 08:59 Duloxetine HCl (Cymbalta) 60 mg DAILY PO ; Start 11/21/16 at 09:00 Active Scripts Active Reported Coq-10 (Ubidecarenone) 100 Mg Capsule 100 Mg PO DAILY Pravastatin Sodium 80 Mg Tablet 80 Mg PO DAILY Restasis (Cyclosporine) 1 Each Droperette 1 Drop OU BID Namenda (Memantine Hcl) 10 Mg Tablet 10 Mg PO BID Metformin Hcl 500 Mg Tablet 500 Mg PO BIDWMEALS Magnesium Oxide 250 Mg Tablet 250 Mg PO DAILY Lutein 10 Mg Tablet 10 Mg PO DAILY Levothyroxine Sodium 100 Mcg Tablet 100 Mcg PO DAILY06 [place] 3-6-9 1,200 mg Softgel (Fish Oil/Borage/Flax/Om3,6,9#1) 1,200 Mg Capsule 1 ,200 Mg PO BID Amoxicillin 500 Mg Capsule 500 Mg PO PRN DAILY PRN 4 Days [Coconut Oil] 1 Tsp PO BID Vitamin D3 (Cholecalciferol (Vitamin D3)) 50,000 Unit Capsule 50,000 Unit PO Q2WKS Vitamin D3 (Cholecalciferol (Vitamin D3)) 1,000 Unit Tablet 2,000 Unit PO DAILY Vitamin B-12 (Cyanocobalamin (Vitamin B-12)) 500 Mcg Tablet 500 Mcg PO DAILY Prozac (Fluoxetine Hcl) 20 Mg Capsule 40 Mg PO DAILY Irbesartan 300 Mg Tablet 300 Mg PO DAILY Indapamide 1.25 Mg Tablet 1.25 Mg PO DAILY Estrace (Estradiol) 42.5 Gm Cream.appl 1 Gm VG 3X/WEEK Aspir-Low (Aspirin) 81 Mg Tablet. 81 Mg PO DAILY Diagnosis: Problems: (1) Anxiety disorder (2) Psychotic depression (3) Major depressive disorder, recurrent episode (4) Psychosis, atypical KARLEE GRIFFIN MD Nov 18, 2016 19:52
--- NOTE | 2016-11-18 20:04 | PN ---
DATE: 11/17/2016 PSYCHIATRIC PROGRESS NOTE This is a late entry for 11/17/2016, covers elements not covered in my initial note of 11/17/2016. SUBJECTIVE: I met with the patient in the evening of 11/17/2016. She refused her at bedtime medication the previous evening, somewhat drowsy wandering morning of 11/17/2016, moaning, not very verbally interactive, frequently keeping her eyes closed even as I met with her. She refused her breakfast, repeatedly stating "I can't do this anymore." Not verbally interactive. REVIEW OF SYSTEMS: She is not very forthcoming on questioning, but no specific CV, , eye, ENT or pulmonary system symptoms on review. MENTAL STATUS EXAM: When she does interact she is reasonably oriented to year, but not to month and date. Speech has some latency, not very verbal as I met with abstraction fair, computation impaired, language function intact. Mood and affect depressed, paranoid, psychotic. LABORATORY DATA: Reviewed. IMPRESSION: Major depressive disorder with psychotic features; anxiety disorder, unspecified; cognitive disorder, unspecified versus mild cognitive impairment. Rest unchanged. PLAN: Change Prozac to Cymbalta 30 mg a day for 3 days, then 60 mg a day, use Risperdal 0.25 mg anytime of the day she takes it. Continue Namenda 10 mg b.i.d., adjust further as clinically indicated. Check comprehensive metabolic profile morning of 11/18/2016 since appetite and fluid intake is very poor. KARLEE GRIFFIN MD DR: VENKAT/heron JOB#: [id number] / [id number]
[2016-11-19] MEDS: LEVOTHYROXINE 100 MCG TABLET PO SCH (05:35)
[2016-11-19 06:05] VITALS: BP 132/71
[2016-11-19] MEDS: metFORMIN 500 MG TABLET PO SCH ×3 (08:00→17:00)
[2016-11-19] MEDS: UBIDECARENONE 50 MG CAPSULE. PO SCH ×2 (08:36→09:00)
[2016-11-19] MEDS: CYANOCOBALAMIN (VITAMIN B-12) 250 MCG TABLET PO SCH ×2 (08:36→09:00)
[2016-11-19] MEDS: MAGNESIUM OXIDE 400 MG TABLET PO SCH ×2 (08:36→09:00)
[2016-11-19] MEDS: OMEGA-3 FATTY ACIDS/FISH OIL 1,000 MG CAPSULE. PO SCH ×3 (08:37→20:52)
[2016-11-19] MEDS: PRAVASTATIN 20 MG TABLET. PO SCH (08:37)
[2016-11-19] MEDS: DULoxetine HCL 30 MG CAPSULE.DR PO SCH (08:37)
[2016-11-19] MEDS: LOSARTAN 50 MG TABLET. PO SCH ×2 (08:37→09:00)
[2016-11-19] MEDS: ASPIRIN ENTERIC COATED 81 MG TABLET.DR. PO SCH ×2 (08:37→09:00)
[2016-11-19] MEDS: CHOLECALCIFEROL (VITAMIN D3) 1,000 UNIT TABLET PO SCH ×2 (08:37→09:00)
[2016-11-19] MEDS: MEMANTINE 10 MG TABLET. PO SCH ×3 (08:37→20:52)
[2016-11-19] MEDS: INDAPAMIDE 1.25 MG TABLET PO SCH ×2 (08:38→09:00)
[2016-11-19] MEDS: cycloSPORINE 0.05% OPTH 1 DROP DROPERETTE OU SCH ×3 (08:38→20:52)
[2016-11-19] MEDS: ESTRADIOL 0.01% VAGINAL CREAM 42.5GM TUBE. VG SCH (09:00)
[2016-11-19] MEDS: risperiDONE ORAL 1 MG/ML 30ml BOTTLE. SL SCH (09:00)
[2016-11-19 16:10] VITALS: BP 132/78
--- NOTE | 2016-11-19 20:04 | PDOC ---
Exam Guzman Demential Exam: Guzman Note: Please also refer to the separate dictated note~for this date of service dictated separately.~Patient seen individually. Discussed the patient with Nursing staff reviewed the chart.~Reviewed interim history and current functioning. Reviewed vital signs,~Labs/ Radiology~and current medications noted below. Continue current treatment with the changes noted in the dictated addendum note Assessment: Vital Signs: Vital Signs Date Time Temp Pulse Resp B/P (MAP) Pulse Ox O2 Delivery O2 Flow Rate FiO2 11/19/16 16:10 98.0 76 16 132/78 (96) 96 Room Air 11/16/16 16:20 0.0 I&O Intake and Output 11/19/16 07:00 Intake Total 80 ml Balance 80 ml Intake Oral 80 ml Labs: Laboratory Tests Test 11/19/16 08:57 Glucose (Fingerstick) 131 mg/dL (70-99) H Current Medications: Meds: Current Medications Acetaminophen (Tylenol) 650 mg PRN Q6HRS PRN PO PAIN / TEMP; Start 11/14/16 at 19:45; Stop 11/15/16 at 17:36; Status DC Multi-Ingredient Ointment (Analgesic [place]) 1 gail PRN QID PRN TP MUSCLE PAIN; Start 11/14/16 at 19:45 Al Hydroxide/Mg Hydroxide (Mylanta Plus Xs) 15 ml PRN AFTMEALHC PRN PO DYSPEPSIA; Start 11/14/16 at 19:45 Magnesium Hydroxide (Milk Of Magnesia) 2,400 mg PRN QHS PRN PO CONSTIPATION; Start 11/14/16 at 19:45 Fluoxetine HCl (PROzac) 20 mg DAILY PO ; Start 11/15/16 at 09:00; Stop 11/15/16 at 09:00; Status DC Memantine (Namenda) 10 mg BID PO Last administered on 11/19/16 09:00; Start 11/14/16 at 21:00 Aspirin (Aspirin Enteric Coated) 81 mg DAILY PO Last administered on 11/16/16 07:48; Start 11/15/16 at 09:00 Vitamin D (Vitamin D3) 1,000 unit DAILY PO Last administered on 11/16/16 07:48 ; Start 11/15/16 at 09:00 Vitamin D (Vitamin D3) 50,000 unit WEEKLY PO ; Start 11/21/16 at 09:00; Stop 11/21 at 09:00; Status DC Cyclosporine (Restasis) 1 drop BID OU Last administered on 11/18/16 08:03; Start 11/14/16 at 21:00 Estradiol (Estrace) 1 gail 3X/WEEK VG ; Start 11/16/16 at 09:00 Indapamide (Lozol) 1.25 mg DAILY PO Last administered on 11/16/16 07:51; Start 11/15/16 at 09:00 Levothyroxine Sodium (Synthroid) 100 mcg DAILY06 PO Last administered on 05:35; Start 11/15/16 at 06:00 Metformin HCl (Glucophage) 500 mg BIDWMEALS PO Last administered on 11/18/16 08 :03; Start 11/15/16 at 08:00 Cyanocobalamin (Vitamin B-12) 500 mcg DAILY PO Last administered on 11/16/16 07 :51; Start 11/15/16 at 09:00 Fish Oil (Fish Oil) 1,000 mg BID PO Last administered on 11/17/16 20:00; Start 11/14/16 at 21:00 Losartan Potassium (Cozaar) 100 mg DAILY PO Last administered on 11/16/16 07:50 ; Start 11/15/16 at 09:00 Non-Formulary Medication 10 mg DAILY PO ; Start 11/15/16 at 09:00; Stop 11/15/16 at 09:00; Status DC Magnesium Oxide (Magnesium Oxide) 200 mg DAILY PO Last administered on 07:48; Start 11/15/16 at 09:00 Fluoxetine HCl (PROzac) 40 mg DAILY PO Last administered on 11/16/16 07:49; Start 11/15/16 at 09:00; Stop 11/17/16 at 19:20; Status DC Vitamin D (Vitamin D3) 50,000 unit Q2WKS PO ; Start 11/21/16 at 09:00 Pravastatin Sodium (Pravachol) 80 mg DAILY PO Last administered on 11/19/16 08: 37; Start 11/15/16 at 09:00 Coenzyme Q10 (Coenzyme Q10) 100 mg DAILY PO Last administered on 11/16/16 07:51 ; Start 11/15/16 at 09:00 Acetaminophen (Tylenol) 650 mg PRN Q6HRS PRN PO PAIN / TEMP; Start 11/15/16 at 17:36 Clonidine HCl (Catapres Tts-2) 1 patch WEEKLY TD Last administered on 11/17/16 08:22; Start 11/17/16 at 09:00 Risperidone (RisperDAL) 0.25 mg HS SL ; Start 11/16/16 at 21:00; Stop 11/17/16 at 19:21; Status DC Risperidone (RisperDAL) 0.25 mg DAILY SL Last administered on 11/19/16 09:00; Start 11/18/16 at 09:00 Duloxetine HCl (Cymbalta) 30 mg DAILY PO Last administered on 11/19/16 08:37; Start 11/18/16 at 09:00; Stop 11/21/16 at 08:59 Duloxetine HCl (Cymbalta) 60 mg DAILY PO ; Start 11/21/16 at 09:00 Active Scripts Active Reported Coq-10 (Ubidecarenone) 100 Mg Capsule 100 Mg PO DAILY Pravastatin Sodium 80 Mg Tablet 80 Mg PO DAILY Restasis (Cyclosporine) 1 Each Droperette 1 Drop OU BID Namenda (Memantine Hcl) 10 Mg Tablet 10 Mg PO BID Metformin Hcl 500 Mg Tablet 500 Mg PO BIDWMEALS Magnesium Oxide 250 Mg Tablet 250 Mg PO DAILY Lutein 10 Mg Tablet 10 Mg PO DAILY Levothyroxine Sodium 100 Mcg Tablet 100 Mcg PO DAILY06 [place] 3-6-9 1,200 mg Softgel (Fish Oil/Borage/Flax/Om3,6,9#1) 1,200 Mg Capsule 1 ,200 Mg PO BID Amoxicillin 500 Mg Capsule 500 Mg PO PRN DAILY PRN 4 Days [Coconut Oil] 1 Tsp PO BID Vitamin D3 (Cholecalciferol (Vitamin D3)) 50,000 Unit Capsule 50,000 Unit PO Q2WKS Vitamin D3 (Cholecalciferol (Vitamin D3)) 1,000 Unit Tablet 2,000 Unit PO DAILY Vitamin B-12 (Cyanocobalamin (Vitamin B-12)) 500 Mcg Tablet 500 Mcg PO DAILY Prozac (Fluoxetine Hcl) 20 Mg Capsule 40 Mg PO DAILY Irbesartan 300 Mg Tablet 300 Mg PO DAILY Indapamide 1.25 Mg Tablet 1.25 Mg PO DAILY Estrace (Estradiol) 42.5 Gm Cream.appl 1 Gm VG 3X/WEEK Aspir-Low (Aspirin) 81 Mg Tablet. 81 Mg PO DAILY Diagnosis: Problems: (1) Anxiety disorder (2) Psychotic depression (3) Major depressive disorder, recurrent episode (4) Psychosis, atypical KARLEE GRIFFIN MD Nov 19, 2016 20:04
--- NOTE | 2016-11-20 00:49 | PN ---
DATE: 11/18/2016 PSYCHIATRIC PROGRESS NOTE This is a late entry of 11/18/2016 covers elements not covered in my initial note of 11/18/2016. SUBJECTIVE: I met with the patient in the evening of 11/18/2016. She had no breakfast or lunch. The friend came to visit her over lunch, but she did not eat much even with the friend. She continues to be somewhat anxious, apprehensive dysphoric repeatedly stating "I cannot do this anymore." She had Risperdal in her juice and then was much better in the afternoon and in fact had supper, which was quite a change for her. The comprehensive metabolic profile shows no significant change. I met with her in her room. REVIEW OF SYSTEMS: No CV, , pulmonary, eye, ENT system symptoms on review. She was lying in bed, said she felt cold. She had 1 cover over her and 2 under her and with her permission, I removed the covers from under her and placed them over her and she was very appreciative and said. "I did not know they were there. I guess that is the reason I am here." She seemed to have a sense of humor in some respects. No CV, , pulmonary, eye, ENT system symptoms on review. MENTAL STATUS EXAM: Oriented to herself, situation, speech moderate latency, often responses monosyllabic. Abstraction fair, computation impaired, language function intact, attention span short. Mood and affect still depressed, intermittently psychotic. LABORATORY DATA: Reviewed. IMPRESSION: Major depressive disorder with psychotic features; anxiety disorder, unspecified; mild cognitive impairment. PLAN: Continue to increase Cymbalta to 60 mg a day, Prozac was stopped, Risperdal 0.25 mg daily anytime she takes it, Namenda 10 b.i.d. Adjust further as clinically indicated. KARLEE GRIFFIN MD DR: VENKAT/heron JOB#: [id number] / [id number]
[2016-11-20 05:49] VITALS: BP 129/80
[2016-11-20] MEDS: LEVOTHYROXINE 100 MCG TABLET PO SCH (05:55)
[2016-11-20 06:50] LABS: BASO # 0.1 x10^3/uL (0.0-0.2); BASO % 1 % (0-3); EOS # 0.1 x10^3/uL (0.0-0.7); EOS % 2 % (0-3); HEMOGLOBIN 12.1 g/dL (12.0-15.5); LYMPH # 1.4 x10^3/uL (1.0-4.8); LYMPH % 23 % (24-48); MEAN CORPUSCULAR HEMOGLOBIN 28 pg (25-35); MEAN CORPUSCULAR HGB CONC 33 g/dL (31-37); MEAN CORPUSCULAR VOLUME 84 fL (79-100); MONO # 0.5 x10^3/uL (0.0-1.1); MONO % 8 % (0-9); NEUT # 4.2 x10^3uL (1.8-7.7); NEUT % 67 % (31-73); PLATELET COUNT 252 x10^3/uL (140-400); RED BLOOD COUNT 4.41 x10^6/uL (3.50-5.40); RED CELL DISTRIBUTION WIDTH 14.1 % (11.5-14.5); WHITE BLOOD COUNT 6.2 x10^3/uL (4.0-11.0)
[2016-11-20 07:04] LABS: ALBUMIN 3.3 g/dL (3.4-5.0); CREATININE 0.7 mg/dL (0.6-1.0); GFR 80.1; MAGNESIUM 2.3 mg/dL (1.8-2.4); POTASSIUM 4.3 mmol/L (3.5-5.1); TOTAL BILIRUBIN 0.4 mg/dL (0.2-1.0); TOTAL PROTEIN 6.7 g/dL (6.4-8.2)
[2016-11-20] MEDS: metFORMIN 500 MG TABLET PO SCH ×2 (08:06→17:21)
[2016-11-20] MEDS: DULoxetine HCL 30 MG CAPSULE.DR PO SCH (08:09)
[2016-11-20] MEDS: risperiDONE ORAL 1 MG/ML 30ml BOTTLE. SL SCH (08:10)
[2016-11-20] MEDS: MEMANTINE 10 MG TABLET. PO SCH ×2 (09:00→21:00)
[2016-11-20] MEDS: LOSARTAN 50 MG TABLET. PO SCH (09:00)
[2016-11-20] MEDS: MAGNESIUM OXIDE 400 MG TABLET PO SCH (09:00)
[2016-11-20] MEDS: OMEGA-3 FATTY ACIDS/FISH OIL 1,000 MG CAPSULE. PO SCH ×2 (09:00→21:00)
[2016-11-20] MEDS: cycloSPORINE 0.05% OPTH 1 DROP DROPERETTE OU SCH ×2 (09:00→21:00)
[2016-11-20] MEDS: PRAVASTATIN 20 MG TABLET. PO SCH (09:00)
[2016-11-20] MEDS: CYANOCOBALAMIN (VITAMIN B-12) 250 MCG TABLET PO SCH (09:00)
[2016-11-20] MEDS: UBIDECARENONE 50 MG CAPSULE. PO SCH (09:00)
[2016-11-20] MEDS: CHOLECALCIFEROL (VITAMIN D3) 1,000 UNIT TABLET PO SCH (09:00)
[2016-11-20] MEDS: ASPIRIN ENTERIC COATED 81 MG TABLET.DR. PO SCH (09:00)
[2016-11-20] MEDS: INDAPAMIDE 1.25 MG TABLET PO SCH (09:00)
[2016-11-20 15:59] VITALS: BP 188/84
--- NOTE | 2016-11-20 19:52 | PDOC ---
Exam Guzman Demential Exam: Guzman Note: Please also refer to the separate dictated note~for this date of service dictated separately.~Patient seen individually. Discussed the patient with Nursing staff reviewed the chart.~Reviewed interim history and current functioning. Reviewed vital signs,~Labs/ Radiology~and current medications noted below. Continue current treatment with the changes noted in the dictated addendum note Assessment: Vital Signs: Vital Signs Date Time Temp Pulse Resp B/P (MAP) Pulse Ox O2 Delivery O2 Flow Rate FiO2 11/20/16 15:59 97.2 82 18 188/84 (118) 100 11/19/16 16:10 Room Air 11/16/16 16:20 0.0 I&O Intake and Output 11/20/16 07:00 Intake Total 200 ml Balance 200 ml Intake Oral 200 ml Labs: Laboratory Tests Test 11/20/16 06:41 11/20/16 08:11 White Blood Count 6.2 x10^3/uL (4.0-11.0) Red Blood Count 4.41 x10^6/uL (3.50-5.40) Hemoglobin 12.1 g/dL (12.0-15.5) Hematocrit 37.0 % (36.0-47.0) Mean Corpuscular Volume 84 fL (79-100) Mean Corpuscular Hemoglobin 28 pg (25-35) Mean Corpuscular Hemoglobin Concent 33 g/dL (31-37) Red Cell Distribution Width 14.1 % (11.5-14.5) Platelet Count 252 x10^3/uL (140-400) Neutrophils (%) (Auto) 67 % (31-73) Lymphocytes (%) (Auto) 23 % (24-48) L Monocytes (%) (Auto) 8 % (0-9) Eosinophils (%) (Auto) 2 % (0-3) Basophils (%) (Auto) 1 % (0-3) Neutrophils # (Auto) 4.2 x10^3uL (1.8-7.7) Lymphocytes # (Auto) 1.4 x10^3/uL (1.0-4.8) Monocytes # (Auto) 0.5 x10^3/uL (0.0-1.1) Eosinophils # (Auto) 0.1 x10^3/uL (0.0-0.7) Basophils # (Auto) 0.1 x10^3/uL (0.0-0.2) Sodium Level 140 mmol/L (136-145) Potassium Level 4.3 mmol/L (3.5-5.1) Chloride Level 102 mmol/L (98-107) Carbon Dioxide Level 35 mmol/L (21-32) H Anion Gap 3 (6-14) L Blood Urea Nitrogen 20 mg/dL (7-20) Creatinine 0.7 mg/dL (0.6-1.0) Estimated GFR (Cockcroft-Gault) 80.1 BUN/Creatinine Ratio 29 (6-20) H Glucose Level 112 mg/dL (70-99) H Calcium Level 9.0 mg/dL (8.5-10.1) Magnesium Level 2.3 mg/dL (1.8-2.4) Total Bilirubin 0.4 mg/dL (0.2-1.0) Aspartate Amino Transferase (AST) 20 U/L (15-37) Alanine Aminotransferase (ALT) 43 U/L (14-59) Alkaline Phosphatase 76 U/L (46-116) Total Protein 6.7 g/dL (6.4-8.2) Albumin 3.3 g/dL (3.4-5.0) L Albumin/Globulin Ratio 1.0 (1.0-1.7) Glucose (Fingerstick) 114 mg/dL (70-99) H Current Medications: Meds: Current Medications Acetaminophen (Tylenol) 650 mg PRN Q6HRS PRN PO PAIN / TEMP; Start 11/14/16 at 19:45; Stop 11/15/16 at 17:36; Status DC Multi-Ingredient Ointment (Analgesic [place]) 1 gail PRN QID PRN TP MUSCLE PAIN; Start 11/14/16 at 19:45 Al Hydroxide/Mg Hydroxide (Mylanta Plus Xs) 15 ml PRN AFTMEALHC PRN PO DYSPEPSIA; Start 11/14/16 at 19:45 Magnesium Hydroxide (Milk Of Magnesia) 2,400 mg PRN QHS PRN PO CONSTIPATION; Start 11/14/16 at 19:45 Fluoxetine HCl (PROzac) 20 mg DAILY PO ; Start 11/15/16 at 09:00; Stop 11/15/16 at 09:00; Status DC Memantine (Namenda) 10 mg BID PO Last administered on 11/19/16 20:52; Start 11/14/16 at 21:00 Aspirin (Aspirin Enteric Coated) 81 mg DAILY PO Last administered on 11/16/16 07:48; Start 11/15/16 at 09:00 Vitamin D (Vitamin D3) 1,000 unit DAILY PO Last administered on 11/16/16 07:48 ; Start 11/15/16 at 09:00 Vitamin D (Vitamin D3) 50,000 unit WEEKLY PO ; Start 11/21/16 at 09:00; Stop 11/21 at 09:00; Status DC Cyclosporine (Restasis) 1 drop BID OU Last administered on 11/19/16 20:52; Start 11/14/16 at 21:00 Estradiol (Estrace) 1 gail 3X/WEEK VG ; Start 11/16/16 at 09:00 Indapamide (Lozol) 1.25 mg DAILY PO Last administered on 11/16/16 07:51; Start 11/15/16 at 09:00 Levothyroxine Sodium (Synthroid) 100 mcg DAILY06 PO Last administered on 05:55; Start 11/15/16 at 06:00 Metformin HCl (Glucophage) 500 mg BIDWMEALS PO Last administered on 11/20/16 17 :21; Start 11/15/16 at 08:00 Cyanocobalamin (Vitamin B-12) 500 mcg DAILY PO Last administered on 11/16/16 07 :51; Start 11/15/16 at 09:00 Fish Oil (Fish Oil) 1,000 mg BID PO Last administered on 11/19/16 20:52; Start 11/14/16 at 21:00 Losartan Potassium (Cozaar) 100 mg DAILY PO Last administered on 11/16/16 07:50 ; Start 11/15/16 at 09:00 Non-Formulary Medication 10 mg DAILY PO ; Start 11/15/16 at 09:00; Stop 11/15/16 at 09:00; Status DC Magnesium Oxide (Magnesium Oxide) 200 mg DAILY PO Last administered on 07:48; Start 11/15/16 at 09:00 Fluoxetine HCl (PROzac) 40 mg DAILY PO Last administered on 11/16/16 07:49; Start 11/15/16 at 09:00; Stop 11/17/16 at 19:20; Status DC Vitamin D (Vitamin D3) 50,000 unit Q2WKS PO ; Start 11/21/16 at 09:00 Pravastatin Sodium (Pravachol) 80 mg DAILY PO Last administered on 11/19/16 08: 37; Start 11/15/16 at 09:00 Coenzyme Q10 (Coenzyme Q10) 100 mg DAILY PO Last administered on 11/16/16 07:51 ; Start 11/15/16 at 09:00 Acetaminophen (Tylenol) 650 mg PRN Q6HRS PRN PO PAIN / TEMP; Start 11/15/16 at 17:36 Clonidine HCl (Catapres Tts-2) 1 patch WEEKLY TD Last administered on 11/17/16 08:22; Start 11/17/16 at 09:00 Risperidone (RisperDAL) 0.25 mg HS SL ; Start 11/16/16 at 21:00; Stop 11/17/16 at 19:21; Status DC Risperidone (RisperDAL) 0.25 mg DAILY SL Last administered on 11/20/16 08:10; Start 11/18/16 at 09:00 Duloxetine HCl (Cymbalta) 30 mg DAILY PO Last administered on 11/20/16 08:09; Start 11/18/16 at 09:00; Stop 11/21/16 at 08:59 Duloxetine HCl (Cymbalta) 60 mg DAILY PO ; Start 11/21/16 at 09:00 Active Scripts Active Reported Coq-10 (Ubidecarenone) 100 Mg Capsule 100 Mg PO DAILY Pravastatin Sodium 80 Mg Tablet 80 Mg PO DAILY Restasis (Cyclosporine) 1 Each Droperette 1 Drop OU BID Namenda (Memantine Hcl) 10 Mg Tablet 10 Mg PO BID Metformin Hcl 500 Mg Tablet 500 Mg PO BIDWMEALS Magnesium Oxide 250 Mg Tablet 250 Mg PO DAILY Lutein 10 Mg Tablet 10 Mg PO DAILY Levothyroxine Sodium 100 Mcg Tablet 100 Mcg PO DAILY06 [place] 3-6-9 1,200 mg Softgel (Fish Oil/Borage/Flax/Om3,6,9#1) 1,200 Mg Capsule 1 ,200 Mg PO BID Amoxicillin 500 Mg Capsule 500 Mg PO PRN DAILY PRN 4 Days [Coconut Oil] 1 Tsp PO BID Vitamin D3 (Cholecalciferol (Vitamin D3)) 50,000 Unit Capsule 50,000 Unit PO Q2WKS Vitamin D3 (Cholecalciferol (Vitamin D3)) 1,000 Unit Tablet 2,000 Unit PO DAILY Vitamin B-12 (Cyanocobalamin (Vitamin B-12)) 500 Mcg Tablet 500 Mcg PO DAILY Prozac (Fluoxetine Hcl) 20 Mg Capsule 40 Mg PO DAILY Irbesartan 300 Mg Tablet 300 Mg PO DAILY Indapamide 1.25 Mg Tablet 1.25 Mg PO DAILY Estrace (Estradiol) 42.5 Gm Cream.appl 1 Gm VG 3X/WEEK Aspir-Low (Aspirin) 81 Mg Tablet.dr 81 Mg PO DAILY Diagnosis: Problems: (1) Anxiety disorder (2) Psychotic depression (3) Major depressive disorder, recurrent episode (4) Psychosis, atypical KARLEE GRIFFIN MD Nov 20, 2016 19:52
--- NOTE | 2016-11-20 23:25 | PN ---
DATE: 11/19/2016 This is a late entry for 11/19/2016 and covers elements not covered in my initial note of 11/19/2016. SUBJECTIVE: I met with the patient evening of 11/19/2016. On the morning of 11/19/2016 per nursing report, she was interactive, smiling, appropriate, took some of her medications and then repeatedly slid herself to the floor. Nursing staff redirected her, she complied, attended some activities and then did the same thing after the activity group was over. She has made statements that she is embarrassed about the way she has been acting. REVIEW OF SYSTEMS: No CV, , pulmonary, eye, ENT system symptoms on review. MENTAL STATUS EXAM: Oriented to herself and situation. Speech has some latency, often responses monosyllabic. Abstraction fair, computation impaired, language function intact, attention span short. Mood and affect dysphoric, anxious. LABORATORY DATA: Reviewed. IMPRESSION: Unchanged from initial note. PLAN: Continue Risperdal liquid 0.25 mg daily, Namenda 10 b.i.d., Cymbalta 30 mg a day, increasing to 60 mg a day. Adjust further as clinically indicated. KARLEE GRIFFIN MD DR: VENKAT/heron JOB#: [id number] / [id number]
[2016-11-21] MEDS: LEVOTHYROXINE 100 MCG TABLET PO SCH (05:03)
[2016-11-21 06:05] VITALS: BP 109/89
[2016-11-21] MEDS: ESTRADIOL 0.01% VAGINAL CREAM 42.5GM TUBE. VG SCH (07:37)
[2016-11-21] MEDS: CHOLECALCIFEROL (VITAMIN D3) 1,000 UNIT TABLET PO SCH (07:37)
[2016-11-21] MEDS: CYANOCOBALAMIN (VITAMIN B-12) 250 MCG TABLET PO SCH (07:38)
[2016-11-21] MEDS: PRAVASTATIN 20 MG TABLET. PO SCH (07:38)
[2016-11-21] MEDS: MAGNESIUM OXIDE 400 MG TABLET PO SCH (07:38)
[2016-11-21] MEDS: CHOLECALCIFEROL (VITAMIN D3) 50,000 UNIT CAPSULE PO SCH (07:38)
[2016-11-21] MEDS: INDAPAMIDE 1.25 MG TABLET PO SCH (07:39)
[2016-11-21] MEDS: UBIDECARENONE 50 MG CAPSULE. PO SCH (07:39)
[2016-11-21] MEDS: OMEGA-3 FATTY ACIDS/FISH OIL 1,000 MG CAPSULE. PO SCH ×2 (07:39→19:48)
[2016-11-21] MEDS: LOSARTAN 50 MG TABLET. PO SCH (07:39)
[2016-11-21] MEDS: cycloSPORINE 0.05% OPTH 1 DROP DROPERETTE OU SCH ×2 (07:40→19:48)
[2016-11-21] MEDS: ASPIRIN ENTERIC COATED 81 MG TABLET.DR. PO SCH (07:40)
[2016-11-21] MEDS: DULoxetine HCL 60 MG CAPSULE.DR PO SCH (07:46)
[2016-11-21] MEDS: MEMANTINE 10 MG TABLET. PO SCH ×2 (07:47→19:49)
[2016-11-21] MEDS: risperiDONE ORAL 1 MG/ML 30ml BOTTLE. SL SCH (07:49)
[2016-11-21] MEDS: metFORMIN 500 MG TABLET PO SCH ×2 (07:52→17:00)
[2016-11-21] MEDS ORDERED: CHOLECALCIFEROL (VITAMIN D3) 50,000 UNIT CAPSULE PO SCH (09:00)
[2016-11-21 16:13] VITALS: BP 108/56
[2016-11-21] MEDS ORDERED: CHOL500050 PO (19:41)
--- NOTE | 2016-11-21 19:47 | PDOC ---
Exam Guzman Demential Exam: Guzman Note: Please also refer to the separate dictated note~for this date of service dictated separately.~Patient seen individually. Discussed the patient with Nursing staff reviewed the chart.~Reviewed interim history and current functioning. Reviewed vital signs,~Labs/ Radiology~and current medications noted below. Continue current treatment with the changes noted in the dictated addendum note Assessment: Vital Signs: Vital Signs Date Time Temp Pulse Resp B/P (MAP) Pulse Ox O2 Delivery O2 Flow Rate FiO2 11/21/16 16:13 98.2 62 18 108/56 (73) 98 11/19/16 16:10 Room Air 11/16/16 16:20 0.0 I&O Intake and Output 11/21/16 07:00 Intake Total 240 ml Balance 240 ml Intake Oral 240 ml Labs: Laboratory Tests Test 11/21/16 07:16 Glucose (Fingerstick) 106 mg/dL (70-99) H Current Medications: Meds: Current Medications Acetaminophen (Tylenol) 650 mg PRN Q6HRS PRN PO PAIN / TEMP; Start 11/14/16 at 19:45; Stop 11/15/16 at 17:36; Status DC Multi-Ingredient Ointment (Analgesic [place]) 1 gail PRN QID PRN TP MUSCLE PAIN; Start 11/14/16 at 19:45 Al Hydroxide/Mg Hydroxide (Mylanta Plus Xs) 15 ml PRN AFTMEALHC PRN PO DYSPEPSIA; Start 11/14/16 at 19:45 Magnesium Hydroxide (Milk Of Magnesia) 2,400 mg PRN QHS PRN PO CONSTIPATION; Start 11/14/16 at 19:45 Fluoxetine HCl (PROzac) 20 mg DAILY PO ; Start 11/15/16 at 09:00; Stop 11/15/16 at 09:00; Status DC Memantine (Namenda) 10 mg BID PO Last administered on 11/21/16 07:47; Start 11/14/16 at 21:00 Aspirin (Aspirin Enteric Coated) 81 mg DAILY PO Last administered on 11/16/16 07:48; Start 11/15/16 at 09:00 Vitamin D (Vitamin D3) 1,000 unit DAILY PO Last administered on 11/16/16 07:48 ; Start 11/15/16 at 09:00 Vitamin D (Vitamin D3) 50,000 unit WEEKLY PO ; Start 11/21/16 at 09:00; Stop 11/21 at 09:00; Status DC Cyclosporine (Restasis) 1 drop BID OU Last administered on 11/19/16 20:52; Start 11/14/16 at 21:00 Estradiol (Estrace) 1 gail 3X/WEEK VG ; Start 11/16/16 at 09:00 Indapamide (Lozol) 1.25 mg DAILY PO Last administered on 11/16/16 07:51; Start 11/15/16 at 09:00 Levothyroxine Sodium (Synthroid) 100 mcg DAILY06 PO Last administered on 05:03; Start 11/15/16 at 06:00 Metformin HCl (Glucophage) 500 mg BIDWMEALS PO Last administered on 11/20/16 17 :21; Start 11/15/16 at 08:00 Cyanocobalamin (Vitamin B-12) 500 mcg DAILY PO Last administered on 11/16/16 07 :51; Start 11/15/16 at 09:00 Fish Oil (Fish Oil) 1,000 mg BID PO Last administered on 11/19/16 20:52; Start 11/14/16 at 21:00 Losartan Potassium (Cozaar) 100 mg DAILY PO Last administered on 11/16/16 07:50 ; Start 11/15/16 at 09:00 Non-Formulary Medication 10 mg DAILY PO ; Start 11/15/16 at 09:00; Stop 11/15/16 at 09:00; Status DC Magnesium Oxide (Magnesium Oxide) 200 mg DAILY PO Last administered on 07:48; Start 11/15/16 at 09:00 Fluoxetine HCl (PROzac) 40 mg DAILY PO Last administered on 11/16/16 07:49; Start 11/15/16 at 09:00; Stop 11/17/16 at 19:20; Status DC Vitamin D (Vitamin D3) 50,000 unit Q2WKS PO ; Start 11/21/16 at 09:00 Pravastatin Sodium (Pravachol) 80 mg DAILY PO Last administered on 11/19/16 08: 37; Start 11/15/16 at 09:00 Coenzyme Q10 (Coenzyme Q10) 100 mg DAILY PO Last administered on 11/16/16 07:51 ; Start 11/15/16 at 09:00 Acetaminophen (Tylenol) 650 mg PRN Q6HRS PRN PO PAIN / TEMP; Start 11/15/16 at 17:36 Clonidine HCl (Catapres Tts-2) 1 patch WEEKLY TD Last administered on 11/17/16 08:22; Start 11/17/16 at 09:00 Risperidone (RisperDAL) 0.25 mg HS SL ; Start 11/16/16 at 21:00; Stop 11/17/16 at 19:21; Status DC Risperidone (RisperDAL) 0.25 mg DAILY SL Last administered on 11/21/16 07:49; Start 11/18/16 at 09:00; Stop 11/21/16 at 18:31; Status DC Duloxetine HCl (Cymbalta) 30 mg DAILY PO Last administered on 11/20/16 08:09; Start 11/18/16 at 09:00; Stop 11/21/16 at 08:59; Status DC Duloxetine HCl (Cymbalta) 60 mg DAILY PO Last administered on 11/21/16 07:46; Start 11/21/16 at 09:00 Risperidone (RisperDAL) 0.5 mg DAILY SL ; Start 11/22/16 at 09:00 Active Scripts Active Reported Coq-10 (Ubidecarenone) 100 Mg Capsule 100 Mg PO DAILY Pravastatin Sodium 80 Mg Tablet 80 Mg PO DAILY Restasis (Cyclosporine) 1 Each Droperette 1 Drop OU BID Namenda (Memantine Hcl) 10 Mg Tablet 10 Mg PO BID Metformin Hcl 500 Mg Tablet 500 Mg PO BIDWMEALS Magnesium Oxide 250 Mg Tablet 250 Mg PO DAILY Lutein 10 Mg Tablet 10 Mg PO DAILY Levothyroxine Sodium 100 Mcg Tablet 100 Mcg PO DAILY06 [place] 3-6-9 1,200 mg Softgel (Fish Oil/Borage/Flax/Om3,6,9#1) 1,200 Mg Capsule 1 ,200 Mg PO BID Amoxicillin 500 Mg Capsule 500 Mg PO PRN DAILY PRN 4 Days [Coconut Oil] 1 Tsp PO BID Vitamin D3 (Cholecalciferol (Vitamin D3)) 50,000 Unit Capsule 50,000 Unit PO Q2WKS Vitamin D3 (Cholecalciferol (Vitamin D3)) 1,000 Unit Tablet 2,000 Unit PO DAILY Vitamin B-12 (Cyanocobalamin (Vitamin B-12)) 500 Mcg Tablet 500 Mcg PO DAILY Prozac (Fluoxetine Hcl) 20 Mg Capsule 40 Mg PO DAILY Irbesartan 300 Mg Tablet 300 Mg PO DAILY Indapamide 1.25 Mg Tablet 1.25 Mg PO DAILY Estrace (Estradiol) 42.5 Gm Cream.appl 1 Gm VG 3X/WEEK Aspir-Low (Aspirin) 81 Mg Tablet.dr 81 Mg PO DAILY Diagnosis: Problems: (1) Anxiety disorder (2) Psychotic depression (3) Major depressive disorder, recurrent episode (4) Psychosis, atypical KARLEE GRIFFIN MD Nov 21, 2016 19:47
--- NOTE | 2016-11-22 03:26 | PN ---
DATE: 11/21/2016 This late entry for date of service 11/20/2016 covers elements not covered in my initial note of 11/20. I met with the patient evening of 11/20/2016. The patient continues to make statements and appeared like she is helpless. She repeatedly states, "I cannot go on anymore." As I questioned her on this, she thoroughly denied suicidal ideation. She has put herself on the floor in the morning. Her friends came to visit her in the afternoon; then after they left, she put herself on the floor again. She appears very coherent at times and shuts her eyes, refuses to talk with me during the individual visit evening of 11/20/2016. REVIEW OF SYSTEMS: Ambulation impaired. No CV, , pulmonary, eye, ENT system symptoms on review. MENTAL STATUS EXAM: Reasonably oriented. Speech when she talks is fairly coherent, abstraction fair, computation impaired, language function intact, attention span short. Mood and affect depressed, anxious. LABORATORY DATA: Reviewed. IMPRESSION: Major depressive disorder with psychotic features; anxiety disorder, unspecified; cognitive disorder, unspecified versus mild cognitive impairment. PLAN: Continue current psychotropics Cymbalta, Risperdal and Namenda. Cymbalta has been increased gradually. KARLEE GRIFFIN MD DR: VENKAT/heron JOB#: [id number] / [id number]
[2016-11-22] MEDS: LEVOTHYROXINE 100 MCG TABLET PO SCH (05:50)
[2016-11-22 06:44] VITALS: BP 148/64
[2016-11-22] MEDS: CYANOCOBALAMIN (VITAMIN B-12) 250 MCG TABLET PO SCH (08:35)
[2016-11-22] MEDS: ASPIRIN ENTERIC COATED 81 MG TABLET.DR. PO SCH (08:35)
[2016-11-22] MEDS: OMEGA-3 FATTY ACIDS/FISH OIL 1,000 MG CAPSULE. PO SCH ×2 (08:35→20:09)
[2016-11-22] MEDS: metFORMIN 500 MG TABLET PO SCH ×2 (08:35→17:20)
[2016-11-22] MEDS: DULoxetine HCL 60 MG CAPSULE.DR PO SCH (08:36)
[2016-11-22] MEDS: PRAVASTATIN 20 MG TABLET. PO SCH (08:36)
[2016-11-22] MEDS: LOSARTAN 50 MG TABLET. PO SCH (08:36)
[2016-11-22] MEDS: CHOLECALCIFEROL (VITAMIN D3) 1,000 UNIT TABLET PO SCH (08:37)
[2016-11-22] MEDS: UBIDECARENONE 50 MG CAPSULE. PO SCH (08:37)
[2016-11-22] MEDS: MAGNESIUM OXIDE 400 MG TABLET PO SCH (08:37)
[2016-11-22] MEDS: cycloSPORINE 0.05% OPTH 1 DROP DROPERETTE OU SCH ×2 (08:37→20:09)
[2016-11-22] MEDS: MEMANTINE 10 MG TABLET. PO SCH ×2 (08:37→20:09)
[2016-11-22] MEDS: INDAPAMIDE 1.25 MG TABLET PO SCH (08:39)
[2016-11-22] MEDS ORDERED: risperiDONE ORAL 1 MG/ML 30ml BOTTLE. SL SCH (09:00)
[2016-11-22 16:29] VITALS: BP 126/85
--- NOTE | 2016-11-22 19:50 | PDOC ---
Exam Guzman Demential Exam: Guzman Note: Please also refer to the separate dictated note~for this date of service dictated separately.~Patient seen individually. Discussed the patient with Nursing staff reviewed the chart.~Reviewed interim history and current functioning. Reviewed vital signs,~Labs/ Radiology~and current medications noted below. Continue current treatment with the changes noted in the dictated addendum note Assessment: Vital Signs: Vital Signs Date Time Temp Pulse Resp B/P (MAP) Pulse Ox O2 Delivery O2 Flow Rate FiO2 11/22/16 16:29 97.6 67 18 126/85 (99) 95 Room Air 11/16/16 16:20 0.0 I&O Intake and Output 11/22/16 07:00 Intake Total 120 ml Balance 120 ml Intake Oral 120 ml Labs: Laboratory Tests Test 11/22/16 07:18 Glucose (Fingerstick) 113 mg/dL (70-99) H Current Medications: Meds: Current Medications Acetaminophen (Tylenol) 650 mg PRN Q6HRS PRN PO PAIN / TEMP; Start 11/14/16 at 19:45; Stop 11/15/16 at 17:36; Status DC Multi-Ingredient Ointment (Analgesic [place]) 1 gail PRN QID PRN TP MUSCLE PAIN; Start 11/14/16 at 19:45 Al Hydroxide/Mg Hydroxide (Mylanta Plus Xs) 15 ml PRN AFTMEALHC PRN PO DYSPEPSIA; Start 11/14/16 at 19:45 Magnesium Hydroxide (Milk Of Magnesia) 2,400 mg PRN QHS PRN PO CONSTIPATION; Start 11/14/16 at 19:45 Fluoxetine HCl (PROzac) 20 mg DAILY PO ; Start 11/15/16 at 09:00; Stop 11/15/16 at 09:00; Status DC Memantine (Namenda) 10 mg BID PO Last administered on 11/22/16 08:37; Start at 21:00 Aspirin (Aspirin Enteric Coated) 81 mg DAILY PO Last administered on 11/22/16 08:35; Start 11/15/16 at 09:00 Vitamin D (Vitamin D3) 1,000 unit DAILY PO Last administered on 11/22/16 08:37 ; Start 11/15/16 at 09:00 Vitamin D (Vitamin D3) 50,000 unit WEEKLY PO ; Start 11/21/16 at 09:00; Stop 11/21 at 09:00; Status DC Cyclosporine (Restasis) 1 drop BID OU Last administered on 11/22/16 08:37; Start 11/14/16 at 21:00 Estradiol (Estrace) 1 gail 3X/WEEK VG ; Start 11/16/16 at 09:00 Indapamide (Lozol) 1.25 mg DAILY PO Last administered on 11/22/16 08:39; Start 11/15/16 at 09:00 Levothyroxine Sodium (Synthroid) 100 mcg DAILY06 PO Last administered on 05:50; Start 11/15/16 at 06:00 Metformin HCl (Glucophage) 500 mg BIDWMEALS PO Last administered on 11/22/16 17:20; Start 11/15/16 at 08:00 Cyanocobalamin (Vitamin B-12) 500 mcg DAILY PO Last administered on 11/22/16 08:35; Start 11/15/16 at 09:00 Fish Oil (Fish Oil) 1,000 mg BID PO Last administered on 11/22/16 08:35; Start 11/14/16 at 21:00 Losartan Potassium (Cozaar) 100 mg DAILY PO Last administered on 11/22/16 08: 36; Start 11/15/16 at 09:00 Non-Formulary Medication 10 mg DAILY PO ; Start 11/15/16 at 09:00; Stop 11/15/16 at 09:00; Status DC Magnesium Oxide (Magnesium Oxide) 200 mg DAILY PO Last administered on 08:37; Start 11/15/16 at 09:00 Fluoxetine HCl (PROzac) 40 mg DAILY PO Last administered on 11/16/16 07:49; Start 11/15/16 at 09:00; Stop 11/17/16 at 19:20; Status DC Vitamin D (Vitamin D3) 50,000 unit Q2WKS PO ; Start 11/21/16 at 09:00 Pravastatin Sodium (Pravachol) 80 mg DAILY PO Last administered on 11/22/16 08 :36; Start 11/15/16 at 09:00 Coenzyme Q10 (Coenzyme Q10) 100 mg DAILY PO Last administered on 11/22/16 08: 37; Start 11/15/16 at 09:00 Acetaminophen (Tylenol) 650 mg PRN Q6HRS PRN PO PAIN / TEMP; Start 11/15/16 at 17:36 Clonidine HCl (Catapres Tts-2) 1 patch WEEKLY TD Last administered on 11/17/16 08:22; Start 11/17/16 at 09:00 Risperidone (RisperDAL) 0.25 mg HS SL ; Start 11/16/16 at 21:00; Stop 11/17/16 at 19:21; Status DC Risperidone (RisperDAL) 0.25 mg DAILY SL Last administered on 11/21/16 07:49; Start 11/18/16 at 09:00; Stop 11/21/16 at 18:31; Status DC Duloxetine HCl (Cymbalta) 30 mg DAILY PO Last administered on 11/20/16 08:09; Start 11/18/16 at 09:00; Stop 11/21/16 at 08:59; Status DC Duloxetine HCl (Cymbalta) 60 mg DAILY PO Last administered on 11/22/16 08:36; Start 11/21/16 at 09:00 Risperidone (RisperDAL) 0.5 mg DAILY SL Last administered on 11/22/16 08:41; Start 11/22/16 at 09:00; Stop 11/22/16 at 19:04; Status DC Risperidone (RisperDAL) 1 mg DAILY SL ; Start 11/23/16 at 09:00 Active Scripts Active Reported Coq-10 (Ubidecarenone) 100 Mg Capsule 100 Mg PO DAILY Pravastatin Sodium 80 Mg Tablet 80 Mg PO DAILY Restasis (Cyclosporine) 1 Each Droperette 1 Drop OU BID Namenda (Memantine Hcl) 10 Mg Tablet 10 Mg PO BID Metformin Hcl 500 Mg Tablet 500 Mg PO BIDWMEALS Magnesium Oxide 250 Mg Tablet 250 Mg PO DAILY Lutein 10 Mg Tablet 10 Mg PO DAILY Levothyroxine Sodium 100 Mcg Tablet 100 Mcg PO DAILY06 [place] 3-6-9 1,200 mg Softgel (Fish Oil/Borage/Flax/Om3,6,9#1) 1,200 Mg Capsule 1 ,200 Mg PO BID Amoxicillin 500 Mg Capsule 500 Mg PO PRN DAILY PRN 4 Days [Coconut Oil] 1 Tsp PO BID Vitamin D3 (Cholecalciferol (Vitamin D3)) 50,000 Unit Capsule 50,000 Unit PO Q2WKS Vitamin D3 (Cholecalciferol (Vitamin D3)) 1,000 Unit Tablet 2,000 Unit PO DAILY Vitamin B-12 (Cyanocobalamin (Vitamin B-12)) 500 Mcg Tablet 500 Mcg PO DAILY Prozac (Fluoxetine Hcl) 20 Mg Capsule 40 Mg PO DAILY Irbesartan 300 Mg Tablet 300 Mg PO DAILY Indapamide 1.25 Mg Tablet 1.25 Mg PO DAILY Estrace (Estradiol) 42.5 Gm Cream.appl 1 Gm VG 3X/WEEK Aspir-Low (Aspirin) 81 Mg Tablet.dr 81 Mg PO DAILY Diagnosis: Problems: (1) Anxiety disorder (2) Psychotic depression (3) Major depressive disorder, recurrent episode (4) Psychosis, atypical (5) Mild cognitive disorder KARLEE GRIFFIN MD Nov 22, 2016 19:50
--- NOTE | 2016-11-22 22:47 | PN ---
DATE: 11/21/2016 This is a late entry for 11/21/2016 and covers the elements not covered in my initial note of 11/21/2016. SUBJECTIVE: I met with the patient in the evening of 11/21/2016. She slept 5-1/4 hours previous night, took her meds in the morning and put herself on the floor the previous evening, refused her meals all day on 11/21/2016 and I addressed this with her, but she is not very interactive. REVIEW OF SYSTEMS: No CV, , pulmonary, eye, ENT system symptoms on review. Reliability poor. MENTAL STATUS EXAM: Oriented to reasonably well when she interacts, but otherwise difficult to assess. Insight limited, judgment marginal, language function intact. Mood and affect is depressed, still somewhat paranoid. LABORATORY DATA: Reviewed. IMPRESSION: Unchanged from initial note. PLAN: Increase Risperdal from 0.25 mg daily to 0.5 mg daily. Continue rest unchanged. MAN Kevin GRIFFIN MD DR: VENKAT/heron JOB#: [id number] / [id number]
[2016-11-23 05:49] VITALS: BP 117/73
[2016-11-23] MEDS: LEVOTHYROXINE 100 MCG TABLET PO SCH (06:42)
[2016-11-23] MEDS: DULoxetine HCL 60 MG CAPSULE.DR PO SCH (08:21)
[2016-11-23] MEDS: cycloSPORINE 0.05% OPTH 1 DROP DROPERETTE OU SCH ×2 (08:22→19:27)
[2016-11-23] MEDS: ASPIRIN ENTERIC COATED 81 MG TABLET.DR. PO SCH (08:22)
[2016-11-23] MEDS: metFORMIN 500 MG TABLET PO SCH ×2 (08:22→16:35)
[2016-11-23] MEDS: MEMANTINE 10 MG TABLET. PO SCH ×2 (08:22→19:27)
[2016-11-23] MEDS: MAGNESIUM OXIDE 400 MG TABLET PO SCH (08:23)
[2016-11-23] MEDS: LOSARTAN 50 MG TABLET. PO SCH (08:23)
[2016-11-23] MEDS: UBIDECARENONE 50 MG CAPSULE. PO SCH (08:25)
[2016-11-23] MEDS: OMEGA-3 FATTY ACIDS/FISH OIL 1,000 MG CAPSULE. PO SCH ×2 (08:25→19:27)
[2016-11-23] MEDS: PRAVASTATIN 20 MG TABLET. PO SCH (08:25)
[2016-11-23] MEDS: CHOLECALCIFEROL (VITAMIN D3) 1,000 UNIT TABLET PO SCH (08:26)
[2016-11-23] MEDS: ESTRADIOL 0.01% VAGINAL CREAM 42.5GM TUBE. VG SCH (08:26)
[2016-11-23] MEDS: CYANOCOBALAMIN (VITAMIN B-12) 250 MCG TABLET PO SCH (08:26)
[2016-11-23] MEDS: risperiDONE ORAL 1 MG/ML 30ml BOTTLE. SL SCH (08:27)
[2016-11-23] MEDS: INDAPAMIDE 1.25 MG TABLET PO SCH (08:30)
[2016-11-23 16:10] VITALS: BP 98/50
--- NOTE | 2016-11-23 19:56 | PDOC ---
Exam Guzman Demential Exam: Guzman Note: Please also refer to the separate dictated note~for this date of service dictated separately.~Patient seen individually. Discussed the patient with Nursing staff reviewed the chart.~Reviewed interim history and current functioning. Reviewed vital signs,~Labs/ Radiology~and current medications noted below. Continue current treatment with the changes noted in the dictated addendum note Assessment: Vital Signs: Vital Signs Date Time Temp Pulse Resp B/P (MAP) Pulse Ox O2 Delivery O2 Flow Rate FiO2 11/23/16 16:10 97.6 70 16 98/50 (66) 94 11/23/16 05:49 Room Air I&O Intake and Output 11/23/16 07:00 Intake Total 600 ml Balance 600 ml Intake Oral 600 ml Labs: Laboratory Tests Test 11/23/16 07:34 Glucose (Fingerstick) 113 mg/dL (70-99) H Current Medications: Meds: Current Medications Acetaminophen (Tylenol) 650 mg PRN Q6HRS PRN PO PAIN / TEMP; Start 11/14/16 at 19:45; Stop 11/15/16 at 17:36; Status DC Multi-Ingredient Ointment (Analgesic [place]) 1 gail PRN QID PRN TP MUSCLE PAIN; Start 11/14/16 at 19:45 Al Hydroxide/Mg Hydroxide (Mylanta Plus Xs) 15 ml PRN AFTMEALHC PRN PO DYSPEPSIA; Start 11/14/16 at 19:45 Magnesium Hydroxide (Milk Of Magnesia) 2,400 mg PRN QHS PRN PO CONSTIPATION; Start 11/14/16 at 19:45 Fluoxetine HCl (PROzac) 20 mg DAILY PO ; Start 11/15/16 at 09:00; Stop 11/15/16 at 09:00; Status DC Memantine (Namenda) 10 mg BID PO Last administered on 11/23/16 19:27; Start at 21:00 Aspirin (Aspirin Enteric Coated) 81 mg DAILY PO Last administered on 11/23/16 08:22; Start 11/15/16 at 09:00 Vitamin D (Vitamin D3) 1,000 unit DAILY PO Last administered on 11/22/16 08:37 ; Start 11/15/16 at 09:00 Vitamin D (Vitamin D3) 50,000 unit WEEKLY PO ; Start 11/21/16 at 09:00; Stop 11/21 at 09:00; Status DC Cyclosporine (Restasis) 1 drop BID OU Last administered on 11/23/16 19:27; Start 11/14/16 at 21:00 Estradiol (Estrace) 1 gail 3X/WEEK VG ; Start 11/16/16 at 09:00 Indapamide (Lozol) 1.25 mg DAILY PO Last administered on 11/23/16 08:30; Start 11/15/16 at 09:00 Levothyroxine Sodium (Synthroid) 100 mcg DAILY06 PO Last administered on 06:42; Start 11/15/16 at 06:00 Metformin HCl (Glucophage) 500 mg BIDWMEALS PO Last administered on 11/23/16 16:35; Start 11/15/16 at 08:00 Cyanocobalamin (Vitamin B-12) 500 mcg DAILY PO Last administered on 11/22/16 08:35; Start 11/15/16 at 09:00 Fish Oil (Fish Oil) 1,000 mg BID PO Last administered on 11/23/16 19:27; Start 11/14/16 at 21:00 Losartan Potassium (Cozaar) 100 mg DAILY PO Last administered on 11/23/16 08: 23; Start 11/15/16 at 09:00 Non-Formulary Medication 10 mg DAILY PO ; Start 11/15/16 at 09:00; Stop 11/15/16 at 09:00; Status DC Magnesium Oxide (Magnesium Oxide) 200 mg DAILY PO Last administered on 08:23; Start 11/15/16 at 09:00 Fluoxetine HCl (PROzac) 40 mg DAILY PO Last administered on 11/16/16 07:49; Start 11/15/16 at 09:00; Stop 11/17/16 at 19:20; Status DC Vitamin D (Vitamin D3) 50,000 unit Q2WKS PO ; Start 11/21/16 at 09:00 Pravastatin Sodium (Pravachol) 80 mg DAILY PO Last administered on 11/23/16 08 :25; Start 11/15/16 at 09:00 Coenzyme Q10 (Coenzyme Q10) 100 mg DAILY PO Last administered on 11/22/16 08: 37; Start 11/15/16 at 09:00 Acetaminophen (Tylenol) 650 mg PRN Q6HRS PRN PO PAIN / TEMP; Start 11/15/16 at 17:36 Clonidine HCl (Catapres Tts-2) 1 patch WEEKLY TD Last administered on 11/17/16 08:22; Start 11/17/16 at 09:00 Risperidone (RisperDAL) 0.25 mg HS SL ; Start 11/16/16 at 21:00; Stop 11/17/16 at 19:21; Status DC Risperidone (RisperDAL) 0.25 mg DAILY SL Last administered on 11/21/16 07:49; Start 11/18/16 at 09:00; Stop 11/21/16 at 18:31; Status DC Duloxetine HCl (Cymbalta) 30 mg DAILY PO Last administered on 11/20/16 08:09; Start 11/18/16 at 09:00; Stop 11/21/16 at 08:59; Status DC Duloxetine HCl (Cymbalta) 60 mg DAILY PO Last administered on 11/23/16 08:21; Start 11/21/16 at 09:00 Risperidone (RisperDAL) 0.5 mg DAILY SL Last administered on 11/22/16 08:41; Start 11/22/16 at 09:00; Stop 11/22/16 at 19:04; Status DC Risperidone (RisperDAL) 1 mg DAILY SL Last administered on 11/23/16 08:27; Start 11/23/16 at 09:00 Active Scripts Active Reported Coq-10 (Ubidecarenone) 100 Mg Capsule 100 Mg PO DAILY Pravastatin Sodium 80 Mg Tablet 80 Mg PO DAILY Restasis (Cyclosporine) 1 Each Droperette 1 Drop OU BID Namenda (Memantine Hcl) 10 Mg Tablet 10 Mg PO BID Metformin Hcl 500 Mg Tablet 500 Mg PO BIDWMEALS Magnesium Oxide 250 Mg Tablet 250 Mg PO DAILY Lutein 10 Mg Tablet 10 Mg PO DAILY Levothyroxine Sodium 100 Mcg Tablet 100 Mcg PO DAILY06 [place] 3-6-9 1,200 mg Softgel (Fish Oil/Borage/Flax/Om3,6,9#1) 1,200 Mg Capsule 1 ,200 Mg PO BID Amoxicillin 500 Mg Capsule 500 Mg PO PRN DAILY PRN 4 Days [Coconut Oil] 1 Tsp PO BID Vitamin D3 (Cholecalciferol (Vitamin D3)) 50,000 Unit Capsule 50,000 Unit PO Q2WKS Vitamin D3 (Cholecalciferol (Vitamin D3)) 1,000 Unit Tablet 2,000 Unit PO DAILY Vitamin B-12 (Cyanocobalamin (Vitamin B-12)) 500 Mcg Tablet 500 Mcg PO DAILY Prozac (Fluoxetine Hcl) 20 Mg Capsule 40 Mg PO DAILY Irbesartan 300 Mg Tablet 300 Mg PO DAILY Indapamide 1.25 Mg Tablet 1.25 Mg PO DAILY Estrace (Estradiol) 42.5 Gm Cream.appl 1 Gm VG 3X/WEEK Aspir-Low (Aspirin) 81 Mg Tablet.dr 81 Mg PO DAILY Diagnosis: Problems: (1) Anxiety disorder (2) Psychotic depression (3) Major depressive disorder, recurrent episode (4) Psychosis, atypical KARLEE GRIFFIN MD Nov 23, 2016 19:56
--- NOTE | 2016-11-23 22:14 | PN ---
DATE: 11/22/2016 This is a late entry for 11/22/2016, covers the elements not covered in my initial note. SUBJECTIVE: The patient was staffed at a treatment team meeting at length the morning of 11/22/2016, seen individually the evening of 11/22/2016 and I also met with the patient's daughter the evening of 11/22/2016. The daughter is visiting from [place] and will be in over the weekend. Appetite has been poor. The patient has not opened her eyes since the daughter has visited her, remains withdrawn, depressed, questionably psychotic. At other times she walks by the nursing station, waving at staff, quite appropriate, pleasant, smiling and there seems to be an element of personality disorder and presenting mood and anxiety symptoms. Apparently, she resented being moved from her home to an independent living at [facility] and the personality fact has complicated the presentation. REVIEW OF SYSTEMS: Appetite poor. No CV, , pulmonary, eye, ENT system symptoms on review. MENTAL STATUS EXAM: When she is interactive she is well oriented. Speech is coherent. She was sitting with her eyes closed as I met with her and her daughter, not very verbal at all, insight limited, judgment marginal, language function intact. Mood and affect depressed, anxious, somewhat paranoid. LABORATORY DATA: Reviewed. IMPRESSION: Unchanged from initial note. Major depressive disorder, recurrent with psychotic features; anxiety disorder, unspecified; cognitive disorder, unspecified. PLAN: Increase Risperdal from 0.5 mg a day to 1 mg a day, maintain Namenda 10 mg b.i.d., Cymbalta 60 mg a day. Adjust further as clinically indicated. MAN Kevin GRIFFIN MD DR: VENKAT/heorn JOB#: [id number] / [id number]
[2016-11-24 05:43] VITALS: BP 120/64
[2016-11-24] MEDS: LEVOTHYROXINE 100 MCG TABLET PO SCH (06:28)
[2016-11-24] MEDS: LOSARTAN 50 MG TABLET. PO SCH (08:55)
[2016-11-24] MEDS: metFORMIN 500 MG TABLET PO SCH ×2 (08:55→17:47)
[2016-11-24] MEDS: cycloSPORINE 0.05% OPTH 1 DROP DROPERETTE OU SCH ×2 (08:55→19:31)
[2016-11-24] MEDS: MEMANTINE 10 MG TABLET. PO SCH ×2 (08:56→19:30)
[2016-11-24] MEDS: PRAVASTATIN 20 MG TABLET. PO SCH (08:56)
[2016-11-24] MEDS: OMEGA-3 FATTY ACIDS/FISH OIL 1,000 MG CAPSULE. PO SCH ×2 (08:57→19:30)
[2016-11-24] MEDS: MAGNESIUM OXIDE 400 MG TABLET PO SCH (08:57)
[2016-11-24] MEDS: CHOLECALCIFEROL (VITAMIN D3) 1,000 UNIT TABLET PO SCH (08:57)
[2016-11-24] MEDS: DULoxetine HCL 60 MG CAPSULE.DR PO SCH (08:57)
[2016-11-24] MEDS: ASPIRIN ENTERIC COATED 81 MG TABLET.DR. PO SCH (08:57)
[2016-11-24] MEDS: CYANOCOBALAMIN (VITAMIN B-12) 250 MCG TABLET PO SCH (08:58)
[2016-11-24] MEDS: UBIDECARENONE 50 MG CAPSULE. PO SCH (08:58)
[2016-11-24] MEDS: INDAPAMIDE 1.25 MG TABLET PO SCH (08:59)
[2016-11-24] MEDS: risperiDONE ORAL 1 MG/ML 30ml BOTTLE. SL SCH (08:59)
[2016-11-24] MEDS: cloNIDine TTS-2 1 PATCH PATCH TD SCH (09:00)
[2016-11-24 16:29] VITALS: BP 95/54
--- NOTE | 2016-11-24 20:52 | PN ---
DATE: 11/23/2016 SUBJECTIVE: This is a late entry 11/23/2016, covers elements not covered in my initial note. I met with the patient evening of 11/23/2016 and also met with the patient's daughter at great length. She has been taking her medications whole. Eat some breakfast and lunch with assistance and oral intake a little better than before. We have requested a Neurology consult with Dr. Wade given the sudden change in her mental status. I have also discussed the patient with Dr. Wade myself. She talked to her brother on the telephone, which seemed to help as well. CT head shows no acute changes. REVIEW OF SYSTEMS: She has been interacting with her daughter much better most of the day as compared to the day before, but in the evening as I met with her on 11/23/2016, she was again relatively nonverbal keeping her eyes shut. No CV, , pulmonary, eye, or ENT system symptoms on review. MENTAL STATUS EXAM: When she does interact, she is well oriented, pleasant, and verbal behaving at the nursing staff. Speech is coherent other than times when she is totally withdrawn and mute. Abstraction fair. Computation difficult to assess the evening 11/23/2016, due to not being interactive. No active suicidal or homicidal ideation. Mood and affect remains somewhat withdrawn, depressed, and possibly psychotic. LABORATORY DATA: Reviewed. IMPRESSION: Unchanged from initial note. PLAN: Continue psychotropics mentioned in my initial note. Reviewed drug interactions at length and risk/benefit ratio favors. There was no further change at this time. Risperdal is 1 mg daily, Namenda 10 b.i.d., and Cymbalta 60 mg a day. Consider EEG and defer to Dr. Wade. MAN Kevin GRIFFIN MD DR: VENKAT/heron JOB#: [id number] / [id number]
--- NOTE | 2016-11-24 23:16 | PDOC ---
Exam Guzman Demential Exam: Guzman Note: Please also refer to the separate dictated note~for this date of service dictated separately.~Patient seen individually. Discussed the patient with Nursing staff reviewed the chart.~Reviewed interim history and current functioning. Reviewed vital signs,~Labs/ Radiology~and current medications noted below. Continue current treatment with the changes noted in the dictated addendum note Assessment: Vital Signs: Vital Signs Date Time Temp Pulse Resp B/P (MAP) Pulse Ox O2 Delivery O2 Flow Rate FiO2 11/24/16 16:29 98.7 90 16 95/54 (68) 98 11/24/16 05:43 Room Air I&O Intake and Output 11/24/16 07:00 Intake Total 960 ml Balance 960 ml Intake Oral 960 ml Labs: Laboratory Tests Test 11/24/16 07:58 Glucose (Fingerstick) 97 mg/dL (70-99) Current Medications: Meds: Current Medications Acetaminophen (Tylenol) 650 mg PRN Q6HRS PRN PO PAIN / TEMP; Start 11/14/16 at 19:45; Stop 11/15/16 at 17:36; Status DC Multi-Ingredient Ointment (Analgesic [place]) 1 gail PRN QID PRN TP MUSCLE PAIN; Start 11/14/16 at 19:45 Al Hydroxide/Mg Hydroxide (Mylanta Plus Xs) 15 ml PRN AFTMEALHC PRN PO DYSPEPSIA; Start 11/14/16 at 19:45 Magnesium Hydroxide (Milk Of Magnesia) 2,400 mg PRN QHS PRN PO CONSTIPATION; Start 11/14/16 at 19:45 Fluoxetine HCl (PROzac) 20 mg DAILY PO ; Start 11/15/16 at 09:00; Stop 11/15/16 at 09:00; Status DC Memantine (Namenda) 10 mg BID PO Last administered on 11/24/16 19:30; Start at 21:00 Aspirin (Aspirin Enteric Coated) 81 mg DAILY PO Last administered on 11/24/16 08:57; Start 11/15/16 at 09:00 Vitamin D (Vitamin D3) 1,000 unit DAILY PO Last administered on 11/24/16 08:57 ; Start 11/15/16 at 09:00 Vitamin D (Vitamin D3) 50,000 unit WEEKLY PO ; Start 11/21/16 at 09:00; Stop 11/21 at 09:00; Status DC Cyclosporine (Restasis) 1 drop BID OU Last administered on 11/24/16 19:31; Start 11/14/16 at 21:00 Estradiol (Estrace) 1 gail 3X/WEEK VG ; Start 11/16/16 at 09:00 Indapamide (Lozol) 1.25 mg DAILY PO Last administered on 11/24/16 08:59; Start 11/15/16 at 09:00; Stop 11/24/16 at 19:39; Status DC Levothyroxine Sodium (Synthroid) 100 mcg DAILY06 PO Last administered on 06:28; Start 11/15/16 at 06:00 Metformin HCl (Glucophage) 500 mg BIDWMEALS PO Last administered on 11/24/16 17:47; Start 11/15/16 at 08:00 Cyanocobalamin (Vitamin B-12) 500 mcg DAILY PO Last administered on 11/24/16 08:58; Start 11/15/16 at 09:00 Fish Oil (Fish Oil) 1,000 mg BID PO Last administered on 11/24/16 19:30; Start 11/14/16 at 21:00 Losartan Potassium (Cozaar) 100 mg DAILY PO Last administered on 11/24/16 08: 55; Start 11/15/16 at 09:00; Stop 11/24/16 at 19:39; Status DC Non-Formulary Medication 10 mg DAILY PO ; Start 11/15/16 at 09:00; Stop 11/15/16 at 09:00; Status DC Magnesium Oxide (Magnesium Oxide) 200 mg DAILY PO Last administered on 08:57; Start 11/15/16 at 09:00 Fluoxetine HCl (PROzac) 40 mg DAILY PO Last administered on 11/16/16 07:49; Start 11/15/16 at 09:00; Stop 11/17/16 at 19:20; Status DC Vitamin D (Vitamin D3) 50,000 unit Q2WKS PO ; Start 11/21/16 at 09:00 Pravastatin Sodium (Pravachol) 80 mg DAILY PO Last administered on 11/24/16 08 :56; Start 11/15/16 at 09:00 Coenzyme Q10 (Coenzyme Q10) 100 mg DAILY PO Last administered on 11/24/16 08: 58; Start 11/15/16 at 09:00 Acetaminophen (Tylenol) 650 mg PRN Q6HRS PRN PO PAIN / TEMP; Start 11/15/16 at 17:36 Clonidine HCl (Catapres Tts-2) 1 patch WEEKLY TD Last administered on 11/17/16 08:22; Start 11/17/16 at 09:00 Risperidone (RisperDAL) 0.25 mg HS SL ; Start 11/16/16 at 21:00; Stop 11/17/16 at 19:21; Status DC Risperidone (RisperDAL) 0.25 mg DAILY SL Last administered on 11/21/16 07:49; Start 11/18/16 at 09:00; Stop 11/21/16 at 18:31; Status DC Duloxetine HCl (Cymbalta) 30 mg DAILY PO Last administered on 11/20/16 08:09; Start 11/18/16 at 09:00; Stop 11/21/16 at 08:59; Status DC Duloxetine HCl (Cymbalta) 60 mg DAILY PO Last administered on 11/24/16 08:57; Start 11/21/16 at 09:00 Risperidone (RisperDAL) 0.5 mg DAILY SL Last administered on 11/22/16 08:41; Start 11/22/16 at 09:00; Stop 11/22/16 at 19:04; Status DC Risperidone (RisperDAL) 1 mg DAILY SL Last administered on 11/24/16 08:59; Start 11/23/16 at 09:00 Losartan Potassium (Cozaar) 50 mg DAILY PO ; Start 11/25/16 at 09:00 Active Scripts Active Reported Coq-10 (Ubidecarenone) 100 Mg Capsule 100 Mg PO DAILY Pravastatin Sodium 80 Mg Tablet 80 Mg PO DAILY Restasis (Cyclosporine) 1 Each Droperette 1 Drop OU BID Namenda (Memantine Hcl) 10 Mg Tablet 10 Mg PO BID Metformin Hcl 500 Mg Tablet 500 Mg PO BIDWMEALS Magnesium Oxide 250 Mg Tablet 250 Mg PO DAILY Lutein 10 Mg Tablet 10 Mg PO DAILY Levothyroxine Sodium 100 Mcg Tablet 100 Mcg PO DAILY06 [place] 3-6-9 1,200 mg Softgel (Fish Oil/Borage/Flax/Om3,6,9#1) 1,200 Mg Capsule 1 ,200 Mg PO BID Amoxicillin 500 Mg Capsule 500 Mg PO PRN DAILY PRN 4 Days [Coconut Oil] 1 Tsp PO BID Vitamin D3 (Cholecalciferol (Vitamin D3)) 50,000 Unit Capsule 50,000 Unit PO Q2WKS Vitamin D3 (Cholecalciferol (Vitamin D3)) 1,000 Unit Tablet 2,000 Unit PO DAILY Vitamin B-12 (Cyanocobalamin (Vitamin B-12)) 500 Mcg Tablet 500 Mcg PO DAILY Prozac (Fluoxetine Hcl) 20 Mg Capsule 40 Mg PO DAILY Irbesartan 300 Mg Tablet 300 Mg PO DAILY Indapamide 1.25 Mg Tablet 1.25 Mg PO DAILY Estrace (Estradiol) 42.5 Gm Cream.appl 1 Gm VG 3X/WEEK Aspir-Low (Aspirin) 81 Mg Tablet.dr 81 Mg PO DAILY Diagnosis: Problems: (1) Anxiety disorder (2) Psychotic depression (3) Major depressive disorder, recurrent episode (4) Psychosis, atypical (5) Mild cognitive disorder KARLEE GRIFFIN MD Nov 24, 2016 23:16
[2016-11-25] MEDS: LEVOTHYROXINE 100 MCG TABLET PO SCH (05:10)
[2016-11-25 06:17] VITALS: BP 137/79
[2016-11-25] MEDS: CYANOCOBALAMIN (VITAMIN B-12) 250 MCG TABLET PO SCH (08:00)
[2016-11-25] MEDS: PRAVASTATIN 20 MG TABLET. PO SCH (08:00)
[2016-11-25] MEDS: cycloSPORINE 0.05% OPTH 1 DROP DROPERETTE OU SCH ×2 (08:00→19:33)
[2016-11-25] MEDS: metFORMIN 500 MG TABLET PO SCH ×2 (08:00→18:28)
[2016-11-25] MEDS: DULoxetine HCL 60 MG CAPSULE.DR PO SCH (08:00)
[2016-11-25] MEDS: CHOLECALCIFEROL (VITAMIN D3) 1,000 UNIT TABLET PO SCH (08:01)
[2016-11-25] MEDS: OMEGA-3 FATTY ACIDS/FISH OIL 1,000 MG CAPSULE. PO SCH ×2 (08:01→19:32)
[2016-11-25] MEDS: UBIDECARENONE 50 MG CAPSULE. PO SCH (08:01)
[2016-11-25] MEDS: ASPIRIN ENTERIC COATED 81 MG TABLET.DR. PO SCH (08:02)
[2016-11-25] MEDS: MEMANTINE 10 MG TABLET. PO SCH ×2 (08:03→19:32)
[2016-11-25] MEDS: MAGNESIUM OXIDE 400 MG TABLET PO SCH (08:03)
[2016-11-25] MEDS: risperiDONE ORAL 1 MG/ML 30ml BOTTLE. SL SCH (10:42)
[2016-11-25] MEDS: LOSARTAN 50 MG TABLET. PO SCH (10:42)
[2016-11-25 17:29] VITALS: BP 120/76
--- NOTE | 2016-11-25 20:22 | PDOC ---
Exam Guzman Demential Exam: Guzman Note: Please also refer to the separate dictated note~for this date of service dictated separately.~Patient seen individually. Discussed the patient with Nursing staff reviewed the chart.~Reviewed interim history and current functioning. Reviewed vital signs,~Labs/ Radiology~and current medications noted below. Continue current treatment with the changes noted in the dictated addendum note Assessment: Vital Signs: Vital Signs Date Time Temp Pulse Resp B/P (MAP) Pulse Ox O2 Delivery O2 Flow Rate FiO2 11/25/16 17:29 97.2 82 16 120/76 (91) 97 11/24/16 05:43 Room Air I&O Intake and Output 11/25/16 07:00 Intake Total 120 ml Balance 120 ml Intake Oral 120 ml Labs: Laboratory Tests Test 11/25/16 07:17 Glucose (Fingerstick) 103 mg/dL (70-99) H Current Medications: Meds: Current Medications Acetaminophen (Tylenol) 650 mg PRN Q6HRS PRN PO PAIN / TEMP; Start 11/14/16 at 19:45; Stop 11/15/16 at 17:36; Status DC Multi-Ingredient Ointment (Analgesic [place]) 1 gail PRN QID PRN TP MUSCLE PAIN; Start 11/14/16 at 19:45 Al Hydroxide/Mg Hydroxide (Mylanta Plus Xs) 15 ml PRN AFTMEALHC PRN PO DYSPEPSIA; Start 11/14/16 at 19:45 Magnesium Hydroxide (Milk Of Magnesia) 2,400 mg PRN QHS PRN PO CONSTIPATION; Start 11/14/16 at 19:45 Fluoxetine HCl (PROzac) 20 mg DAILY PO ; Start 11/15/16 at 09:00; Stop 11/15/16 at 09:00; Status DC Memantine (Namenda) 10 mg BID PO Last administered on 11/25/16 19:32; Start at 21:00 Aspirin (Aspirin Enteric Coated) 81 mg DAILY PO Last administered on 11/25/16 08:02; Start 11/15/16 at 09:00 Vitamin D (Vitamin D3) 1,000 unit DAILY PO Last administered on 11/25/16 08:01 ; Start 11/15/16 at 09:00 Vitamin D (Vitamin D3) 50,000 unit WEEKLY PO ; Start 11/21/16 at 09:00; Stop 11/21 at 09:00; Status DC Cyclosporine (Restasis) 1 drop BID OU Last administered on 11/25/16 19:33; Start 11/14/16 at 21:00 Estradiol (Estrace) 1 gail 3X/WEEK VG ; Start 11/16/16 at 09:00 Indapamide (Lozol) 1.25 mg DAILY PO Last administered on 11/24/16 08:59; Start 11/15/16 at 09:00; Stop 11/24/16 at 19:39; Status DC Levothyroxine Sodium (Synthroid) 100 mcg DAILY06 PO Last administered on 05:10; Start 11/15/16 at 06:00 Metformin HCl (Glucophage) 500 mg BIDWMEALS PO Last administered on 11/25/16 18:28; Start 11/15/16 at 08:00 Cyanocobalamin (Vitamin B-12) 500 mcg DAILY PO Last administered on 11/25/16 08:00; Start 11/15/16 at 09:00 Fish Oil (Fish Oil) 1,000 mg BID PO Last administered on 11/25/16 19:32; Start 11/14/16 at 21:00 Losartan Potassium (Cozaar) 100 mg DAILY PO Last administered on 11/24/16 08: 55; Start 11/15/16 at 09:00; Stop 11/24/16 at 19:39; Status DC Non-Formulary Medication 10 mg DAILY PO ; Start 11/15/16 at 09:00; Stop 11/15/16 at 09:00; Status DC Magnesium Oxide (Magnesium Oxide) 200 mg DAILY PO Last administered on 08:03; Start 11/15/16 at 09:00 Fluoxetine HCl (PROzac) 40 mg DAILY PO Last administered on 11/16/16 07:49; Start 11/15/16 at 09:00; Stop 11/17/16 at 19:20; Status DC Vitamin D (Vitamin D3) 50,000 unit Q2WKS PO ; Start 11/21/16 at 09:00 Pravastatin Sodium (Pravachol) 80 mg DAILY PO Last administered on 11/25/16 08 :00; Start 11/15/16 at 09:00 Coenzyme Q10 (Coenzyme Q10) 100 mg DAILY PO Last administered on 11/25/16 08: 01; Start 11/15/16 at 09:00 Acetaminophen (Tylenol) 650 mg PRN Q6HRS PRN PO PAIN / TEMP; Start 11/15/16 at 17:36 Clonidine HCl (Catapres Tts-2) 1 patch WEEKLY TD Last administered on 11/17/16 08:22; Start 11/17/16 at 09:00 Risperidone (RisperDAL) 0.25 mg HS SL ; Start 11/16/16 at 21:00; Stop 11/17/16 at 19:21; Status DC Risperidone (RisperDAL) 0.25 mg DAILY SL Last administered on 11/21/16 07:49; Start 11/18/16 at 09:00; Stop 11/21/16 at 18:31; Status DC Duloxetine HCl (Cymbalta) 30 mg DAILY PO Last administered on 11/20/16 08:09; Start 11/18/16 at 09:00; Stop 11/21/16 at 08:59; Status DC Duloxetine HCl (Cymbalta) 60 mg DAILY PO Last administered on 11/25/16 08:00; Start 11/21/16 at 09:00 Risperidone (RisperDAL) 0.5 mg DAILY SL Last administered on 11/22/16 08:41; Start 11/22/16 at 09:00; Stop 11/22/16 at 19:04; Status DC Risperidone (RisperDAL) 1 mg DAILY SL Last administered on 11/25/16 10:42; Start 11/23/16 at 09:00 Losartan Potassium (Cozaar) 50 mg DAILY PO Last administered on 11/25/16 10:42 ; Start 11/25/16 at 09:00 Active Scripts Active Reported Coq-10 (Ubidecarenone) 100 Mg Capsule 100 Mg PO DAILY Pravastatin Sodium 80 Mg Tablet 80 Mg PO DAILY Restasis (Cyclosporine) 1 Each Droperette 1 Drop OU BID Namenda (Memantine Hcl) 10 Mg Tablet 10 Mg PO BID Metformin Hcl 500 Mg Tablet 500 Mg PO BIDWMEALS Magnesium Oxide 250 Mg Tablet 250 Mg PO DAILY Lutein 10 Mg Tablet 10 Mg PO DAILY Levothyroxine Sodium 100 Mcg Tablet 100 Mcg PO DAILY06 [place] 3-6-9 1,200 mg Softgel (Fish Oil/Borage/Flax/Om3,6,9#1) 1,200 Mg Capsule 1 ,200 Mg PO BID Amoxicillin 500 Mg Capsule 500 Mg PO PRN DAILY PRN 4 Days [Coconut Oil] 1 Tsp PO BID Vitamin D3 (Cholecalciferol (Vitamin D3)) 50,000 Unit Capsule 50,000 Unit PO Q2WKS Vitamin D3 (Cholecalciferol (Vitamin D3)) 1,000 Unit Tablet 2,000 Unit PO DAILY Vitamin B-12 (Cyanocobalamin (Vitamin B-12)) 500 Mcg Tablet 500 Mcg PO DAILY Prozac (Fluoxetine Hcl) 20 Mg Capsule 40 Mg PO DAILY Irbesartan 300 Mg Tablet 300 Mg PO DAILY Indapamide 1.25 Mg Tablet 1.25 Mg PO DAILY Estrace (Estradiol) 42.5 Gm Cream.appl 1 Gm VG 3X/WEEK Aspir-Low (Aspirin) 81 Mg Tablet.dr 81 Mg PO DAILY Diagnosis: Problems: (1) Anxiety disorder (2) Psychotic depression (3) Major depressive disorder, recurrent episode (4) Psychosis, atypical KARLEE GRIFFIN MD Nov 25, 2016 20:22
--- NOTE | 2016-11-25 20:33 | PN ---
DATE: 11/24/2016 This is a late entry for 11/24/2016 and covers elements not covered in my initial note. I met with the patient in the evening of 11/24/2016 and also with her daughter who is visiting from [place]. I had a lengthy discussion about the patient's diagnoses, progress, Neurology consult. Dr. Wade does not feel EEG is required, CT head was unremarkable. The patient has done much better during the day on 11/24/2016, compliant with her medications, refused to speak on phone with daughter, but when daughter visited, she was very pleasant with her daughter in conversation. Earlier in the day on 11/24/2016, she was yelling, "I am dying." Slid out of the wheelchair intentionally, Salty lift had to be used to put her in bed and when questioned, she seemed to remember this whole incident was feeling apologetic about it, but at the time it happened, it appeared to all around her that she was totally oblivious of what was happening. REVIEW OF SYSTEMS: No CV, , pulmonary, eye, ENT system symptoms on review. MENTAL STATUS EXAM: Oriented to herself, very quite animated, verbal appropriate as I met with her and her daughter. Speech is coherent, abstraction fair, computation somewhat impaired. Language function intact. Attention span short. Mood and affect overall improved the evening of 11/24/2016 as I met her with quite labile earlier in the day. LABORATORY DATA: Reviewed. 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 PLAN: Continue Namenda 10 mg b.i.d., Risperdal 1 mg daily, Cymbalta 60 mg a day. Make further adjustments as clinically indicated. MAN Kevin GRIFFIN MD DR: VENKAT/heron JOB#: [id number] / [id number]
--- NOTE | 2016-11-26 01:04 | PN ---
DATE: 11/22/2016 SUBJECTIVE: The patient stated she has not had any episode today. She is still intermittently confused, but severely depressed. She still had poor appetite, but denies suicidal ideation. She is more cooperative and more talkative. She denies any new medical or neurological complaints. OBJECTIVE: GENERAL: Well-developed, well nourished female, not in acute distress. VITAL SIGNS: Blood pressure 140/64, respiratory rate 18, pulse 72, afebrile, oxygen saturation 95% on room air. HEENT: Normocephalic, atraumatic, otherwise unremarkable. NECK: Supple. Negative for carotid bruit, lymphadenopathy or thyromegaly. LUNGS: Clear to A and P. CARDIOVASCULAR: Regular rhythm, normal S1, S2. No S3, S4 or murmur. ABDOMEN: Soft. Bowel sounds positive. EXTREMITIES: Negative for cyanosis, clubbing or pitting edema. NEUROLOGICAL EXAM: Mental Status: The patient is more alert and oriented x 3. Speech is somewhat fluent. No language dysfunction. Memory: The patient recalls 1/3 immediately and after 1 and 3 minutes. Judgment and abstract thinking are fair. The patient denies hallucination or delusion. Cranial nerves are intact. Motor Examination: No focal muscle bulk was seen. The tone is normal. The strength is 4/5 throughout. Sensory examination revealed normal pinprick and light touch senses. Deep tendon reflexes are symmetric and hypoactive with absent Achilles responses. Gait, the patient uses a walker for ambulation. IMPRESSION: 1. Episode of confusion and encephalopathy - improved. 2. Multiple medical problems include hypertension, hyperlipidemia, diabetes mellitus, and hypothyroidism. 3. Multiple psychiatric problems include possible early dementia, major depressions with feature of psychosis, anxiety and intermittent paranoid. RECOMMENDATIONS: Continue with current medical and psychiatric care. M Guerita OSEGUERA MD DR: PRAKASH/heron JOB#: [id number] / [id number]
--- NOTE | 2016-11-26 01:05 | PN ---
DATE: 11/23/2016 SUBJECTIVE: The patient denies any new medical or neurological complaints. She had a very good day in the morning, but late afternoon, the patient had another episode described as a sudden onset of confusion and responses to verbal commands and being noncommunicative. However, her appetite continues to be improved. She denies suicidal ideations. OBJECTIVE: GENERAL: Well-developed and well-nourished female, not in acute distress. VITAL SIGNS: Blood pressure 98/50, respiratory rate 16, pulse is 70 and regular, temperature 97.6, and oxygen saturation 94% on room air. HEENT: Normocephalic and atraumatic, otherwise unremarkable. NECK: Supple. Negative for carotid bruit, lymphadenopathy, or thyromegaly. LUNGS: Clear to A and P. CARDIOVASCULAR: Regular rate and rhythm. Normal S1 and S2. ABDOMEN: Soft. Bowel sounds positive. EXTREMITIES: Negative for cyanosis, clubbing, or pitting edema. NEUROLOGICAL EXAM: Mental Status, the patient is alert and oriented x 2. The speech is fluent. There is no language dysfunction. Memory, judgment, and abstraction thinking are fair. The patient denies hallucination or delusion. Cranial nerves are intact. No focal muscle bulk was seen. The tone is normal. The strength is 4/5 throughout. Sensory examination revealed normal pinprick, light touch, vibratory, and position senses. Deep tendon reflexes were symmetric and hypoactive without pathology responses. Gait, the patient uses a walker for ambulation. Head CT scan performed on 11/16/2016, revealed no acute intracranial process, but consistent with chronic small vessel ischemic changes. IMPRESSION: 1. Recurrent episodes of being confused, non-communicate, and not following commands. Etiology is uncertain. Rule out underlying multiple psychiatric disorders and nonconvulsive seizures. 2. Multiple psychiatric problems including early dementia, major depression, and anxiety. 3. Multiple medical problems to include diabetes mellitus, hyperlipidemia, hypertension, and hypothyroidism. RECOMMENDATIONS: 1. We will consider EEG. 2. Continue with current medical and psychiatric care. M Guerita OSEGUERA MD DR: PRAKASH/heron JOB#: [id number] / [id number]
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
--- NOTE | 2016-11-26 01:18 | PN ---
DATE: SUBJECTIVE: The patient denies any new medical or neurological complaints. She continues to have intermittent spells as described above as a sudden onset of difficulty to communicate with paranoid and sometimes psychotic features as yelling and saying "I am dying." In the morning, the patient was very pleasant, followed commands. OBJECTIVE: GENERAL: Well-developed, well-nourished female, not in acute distress. VITAL SIGNS: Blood pressure 95/54, respiratory rate 16, pulse is 60 and regular, temperature 98.7, oxygen saturation 98% on room air. HEENT: Normocephalic, atraumatic, otherwise unremarkable. NECK: Supple. Negative for carotid bruit, lymphadenopathy or thyromegaly. LUNGS: Clear to A and P. CARDIOVASCULAR: Regular rate and rhythm, normal S1, S2. There is no S3, S4 or murmur. ABDOMEN: Soft. Bowel sounds positive. EXTREMITIES: Negative for cyanosis, clubbing or pitting edema. NEUROLOGIC: The patient is alert and oriented x 3. Speech is fluent. There is no language dysfunction. Memory, the patient recalls 2/3 immediately and after 1 and 3 minutes. Judgment and abstract thinking are fair. The patient denies hallucination or delusion. Cranial nerves are intact. Motor: No muscle bulk was seen. The tone was normal. The strength was 4/5 throughout. Sensory examination revealed normal pinprick and light touch senses. Deep tendon reflexes were symmetric and hypoactive without pathologic responses. Gait: The patient uses a walker for ambulation. IMPRESSION: 1. Recurrent episode of being confused and disoriented and noncommunicative, rule out underlying depression and anxiety disorders. 2. Rule out seizure. 3. Multiple psychiatric problems include depression, anxiety, and possible early dementia. 4. Multiple medical problems include hypertension, hyperlipidemia, hypothyroidism, and diabetes mellitus. RECOMMENDATIONS: Continue with current medical and neurological and psychiatric care. M Guerita OSEGUERA MD DR: PRAKASH/heron JOB#: [id number] / [id number]
[2016-11-26] MEDS: LEVOTHYROXINE 100 MCG TABLET PO SCH (05:44)
[2016-11-26 06:17] VITALS: BP 106/70
[2016-11-26] MEDS: ESTRADIOL 0.01% VAGINAL CREAM 42.5GM TUBE. VG SCH (08:05)
[2016-11-26] MEDS: OMEGA-3 FATTY ACIDS/FISH OIL 1,000 MG CAPSULE. PO SCH ×2 (08:17→19:35)
[2016-11-26] MEDS: CYANOCOBALAMIN (VITAMIN B-12) 250 MCG TABLET PO SCH (08:18)
[2016-11-26] MEDS: metFORMIN 500 MG TABLET PO SCH ×2 (08:18→17:46)
[2016-11-26] MEDS: MAGNESIUM OXIDE 400 MG TABLET PO SCH (08:18)
[2016-11-26] MEDS: PRAVASTATIN 20 MG TABLET. PO SCH (08:18)
[2016-11-26] MEDS: LOSARTAN 50 MG TABLET. PO SCH (08:19)
[2016-11-26] MEDS: ASPIRIN ENTERIC COATED 81 MG TABLET.DR. PO SCH (08:19)
[2016-11-26] MEDS: DULoxetine HCL 60 MG CAPSULE.DR PO SCH (08:19)
[2016-11-26] MEDS: UBIDECARENONE 50 MG CAPSULE. PO SCH (08:19)
[2016-11-26] MEDS: MEMANTINE 10 MG TABLET. PO SCH ×2 (08:19→19:35)
[2016-11-26] MEDS: CHOLECALCIFEROL (VITAMIN D3) 1,000 UNIT TABLET PO SCH (08:19)
[2016-11-26] MEDS: cycloSPORINE 0.05% OPTH 1 DROP DROPERETTE OU SCH ×2 (08:20→19:35)
[2016-11-26] MEDS: risperiDONE ORAL 1 MG/ML 30ml BOTTLE. SL SCH (08:20)
[2016-11-26 16:53] VITALS: BP 111/68
--- NOTE | 2016-11-26 20:20 | PDOC ---
Exam Guzman Demential Exam: Guzman Note: Please also refer to the separate dictated note~for this date of service dictated separately.~Patient seen individually. Discussed the patient with Nursing staff reviewed the chart.~Reviewed interim history and current functioning. Reviewed vital signs,~Labs/ Radiology~and current medications noted below. Continue current treatment with the changes noted in the dictated addendum note Assessment: Vital Signs: Vital Signs Date Time Temp Pulse Resp B/P (MAP) Pulse Ox O2 Delivery O2 Flow Rate FiO2 11/26/16 16:53 97.0 78 18 111/68 (82) 99 11/24/16 05:43 Room Air I&O Intake and Output 11/26/16 07:00 Intake Total 1280 ml Balance 1280 ml Intake Oral 1280 ml Labs: Laboratory Tests Test 11/26/16 07:14 Glucose (Fingerstick) 95 mg/dL (70-99) Current Medications: Meds: Current Medications Acetaminophen (Tylenol) 650 mg PRN Q6HRS PRN PO PAIN / TEMP; Start 11/14/16 at 19:45; Stop 11/15/16 at 17:36; Status DC Multi-Ingredient Ointment (Analgesic [place]) 1 gail PRN QID PRN TP MUSCLE PAIN; Start 11/14/16 at 19:45 Al Hydroxide/Mg Hydroxide (Mylanta Plus Xs) 15 ml PRN AFTMEALHC PRN PO DYSPEPSIA; Start 11/14/16 at 19:45 Magnesium Hydroxide (Milk Of Magnesia) 2,400 mg PRN QHS PRN PO CONSTIPATION; Start 11/14/16 at 19:45 Fluoxetine HCl (PROzac) 20 mg DAILY PO ; Start 11/15/16 at 09:00; Stop 11/15/16 at 09:00; Status DC Memantine (Namenda) 10 mg BID PO Last administered on 11/26/16 19:35; Start at 21:00 Aspirin (Aspirin Enteric Coated) 81 mg DAILY PO Last administered on 11/26/16 08:19; Start 11/15/16 at 09:00 Vitamin D (Vitamin D3) 1,000 unit DAILY PO Last administered on 11/26/16 08:19 ; Start 11/15/16 at 09:00 Vitamin D (Vitamin D3) 50,000 unit WEEKLY PO ; Start 11/21/16 at 09:00; Stop 11/21 at 09:00; Status DC Cyclosporine (Restasis) 1 drop BID OU Last administered on 11/26/16 19:35; Start 11/14/16 at 21:00 Estradiol (Estrace) 1 gail 3X/WEEK VG ; Start 11/16/16 at 09:00 Indapamide (Lozol) 1.25 mg DAILY PO Last administered on 11/24/16 08:59; Start 11/15/16 at 09:00; Stop 11/24/16 at 19:39; Status DC Levothyroxine Sodium (Synthroid) 100 mcg DAILY06 PO Last administered on 05:44; Start 11/15/16 at 06:00 Metformin HCl (Glucophage) 500 mg BIDWMEALS PO Last administered on 11/26/16 17:46; Start 11/15/16 at 08:00 Cyanocobalamin (Vitamin B-12) 500 mcg DAILY PO Last administered on 11/26/16 08:18; Start 11/15/16 at 09:00 Fish Oil (Fish Oil) 1,000 mg BID PO Last administered on 11/26/16 19:35; Start 11/14/16 at 21:00 Losartan Potassium (Cozaar) 100 mg DAILY PO Last administered on 11/24/16 08: 55; Start 11/15/16 at 09:00; Stop 11/24/16 at 19:39; Status DC Non-Formulary Medication 10 mg DAILY PO ; Start 11/15/16 at 09:00; Stop 11/15/16 at 09:00; Status DC Magnesium Oxide (Magnesium Oxide) 200 mg DAILY PO Last administered on 08:18; Start 11/15/16 at 09:00 Fluoxetine HCl (PROzac) 40 mg DAILY PO Last administered on 11/16/16 07:49; Start 11/15/16 at 09:00; Stop 11/17/16 at 19:20; Status DC Vitamin D (Vitamin D3) 50,000 unit Q2WKS PO ; Start 11/21/16 at 09:00 Pravastatin Sodium (Pravachol) 80 mg DAILY PO Last administered on 11/26/16 08 :18; Start 11/15/16 at 09:00 Coenzyme Q10 (Coenzyme Q10) 100 mg DAILY PO Last administered on 11/26/16 08: 19; Start 11/15/16 at 09:00 Acetaminophen (Tylenol) 650 mg PRN Q6HRS PRN PO PAIN / TEMP; Start 11/15/16 at 17:36 Clonidine HCl (Catapres Tts-2) 1 patch WEEKLY TD Last administered on 11/17/16 08:22; Start 11/17/16 at 09:00 Risperidone (RisperDAL) 0.25 mg HS SL ; Start 11/16/16 at 21:00; Stop 11/17/16 at 19:21; Status DC Risperidone (RisperDAL) 0.25 mg DAILY SL Last administered on 11/21/16 07:49; Start 11/18/16 at 09:00; Stop 11/21/16 at 18:31; Status DC Duloxetine HCl (Cymbalta) 30 mg DAILY PO Last administered on 11/20/16 08:09; Start 11/18/16 at 09:00; Stop 11/21/16 at 08:59; Status DC Duloxetine HCl (Cymbalta) 60 mg DAILY PO Last administered on 11/26/16 08:19; Start 11/21/16 at 09:00 Risperidone (RisperDAL) 0.5 mg DAILY SL Last administered on 11/22/16 08:41; Start 11/22/16 at 09:00; Stop 11/22/16 at 19:04; Status DC Risperidone (RisperDAL) 1 mg DAILY SL Last administered on 11/26/16 08:20; Start 11/23/16 at 09:00 Losartan Potassium (Cozaar) 50 mg DAILY PO Last administered on 11/26/16 08:19 ; Start 11/25/16 at 09:00 Active Scripts Active Reported Coq-10 (Ubidecarenone) 100 Mg Capsule 100 Mg PO DAILY Pravastatin Sodium 80 Mg Tablet 80 Mg PO DAILY Restasis (Cyclosporine) 1 Each Droperette 1 Drop OU BID Namenda (Memantine Hcl) 10 Mg Tablet 10 Mg PO BID Metformin Hcl 500 Mg Tablet 500 Mg PO BIDWMEALS Magnesium Oxide 250 Mg Tablet 250 Mg PO DAILY Lutein 10 Mg Tablet 10 Mg PO DAILY Levothyroxine Sodium 100 Mcg Tablet 100 Mcg PO DAILY06 [place] 3-6-9 1,200 mg Softgel (Fish Oil/Borage/Flax/Om3,6,9#1) 1,200 Mg Capsule 1 ,200 Mg PO BID Amoxicillin 500 Mg Capsule 500 Mg PO PRN DAILY PRN 4 Days [Coconut Oil] 1 Tsp PO BID Vitamin D3 (Cholecalciferol (Vitamin D3)) 50,000 Unit Capsule 50,000 Unit PO Q2WKS Vitamin D3 (Cholecalciferol (Vitamin D3)) 1,000 Unit Tablet 2,000 Unit PO DAILY Vitamin B-12 (Cyanocobalamin (Vitamin B-12)) 500 Mcg Tablet 500 Mcg PO DAILY Prozac (Fluoxetine Hcl) 20 Mg Capsule 40 Mg PO DAILY Irbesartan 300 Mg Tablet 300 Mg PO DAILY Indapamide 1.25 Mg Tablet 1.25 Mg PO DAILY Estrace (Estradiol) 42.5 Gm Cream.appl 1 Gm VG 3X/WEEK Aspir-Low (Aspirin) 81 Mg Tablet.dr 81 Mg PO DAILY Diagnosis: Problems: (1) Anxiety disorder (2) Psychotic depression (3) Major depressive disorder, recurrent episode (4) Psychosis, atypical (5) Mild cognitive disorder KARLEE GRIFFIN MD Nov 26, 2016 20:20
[2016-11-27] MEDS: LEVOTHYROXINE 100 MCG TABLET PO SCH (05:32)
[2016-11-27] MEDS: DULoxetine HCL 60 MG CAPSULE.DR PO SCH (08:25)
[2016-11-27] MEDS: OMEGA-3 FATTY ACIDS/FISH OIL 1,000 MG CAPSULE. PO SCH ×2 (08:25→19:11)
[2016-11-27] MEDS: CHOLECALCIFEROL (VITAMIN D3) 1,000 UNIT TABLET PO SCH (08:25)
[2016-11-27] MEDS: MAGNESIUM OXIDE 400 MG TABLET PO SCH (08:26)
[2016-11-27] MEDS: ASPIRIN ENTERIC COATED 81 MG TABLET.DR. PO SCH (08:27)
[2016-11-27] MEDS: CYANOCOBALAMIN (VITAMIN B-12) 250 MCG TABLET PO SCH (08:27)
[2016-11-27] MEDS: PRAVASTATIN 20 MG TABLET. PO SCH (08:30)
[2016-11-27] MEDS: UBIDECARENONE 50 MG CAPSULE. PO SCH (08:30)
[2016-11-27] MEDS: LOSARTAN 50 MG TABLET. PO SCH (08:30)
[2016-11-27] MEDS: metFORMIN 500 MG TABLET PO SCH ×2 (08:30→17:45)
[2016-11-27] MEDS: cycloSPORINE 0.05% OPTH 1 DROP DROPERETTE OU SCH ×2 (08:36→19:11)
[2016-11-27] MEDS: MEMANTINE 10 MG TABLET. PO SCH ×2 (08:39→19:11)
[2016-11-27] MEDS: risperiDONE ORAL 1 MG/ML 30ml BOTTLE. SL SCH (08:40)
--- NOTE | 2016-11-27 09:27 | PN ---
DATE: 11/25/2016 PSYCHIATRIC PROGRESS NOTE This is a late entry for 11/15/2016, covers elements not covered in my initial note of 11/25/2016. SUBJECTIVE: Met with the patient in the evening of 11/25/2016. The patient slept 5 hours previous evening. A friend came to visit her. She walked to her lunches, been more awake and alert during the day. I had a very lengthy discussion in her room about episode she had where she would be disassociated from her surroundings. She was very pleased that she had none of those on 11/25/2016. REVIEW OF SYSTEMS: No CV, , pulmonary, eye, ENT system symptoms on review. MENTAL STATUS EXAM: Oriented to herself and situation. Speech has some latency, coherent. Abstraction fair, computation impaired, language function intact, attention span short. Mood and affect appears improved, less anxious, less dysphoric. She talked about having three children and details about the families and memory seemed reasonable in many respects. LABORATORY DATA: Reviewed. IMPRESSION: Unchanged from initial note. PLAN: Continue current psychotropics mentioned in my initial note. Review drug interaction risk/benefit ratio favors no further change at this time. KARLEE GRIFFIN MD DR: VENKAT/heron JOB#: [id number] / [id number]
[2016-11-27 16:28] VITALS: BP 128/69
--- NOTE | 2016-11-27 19:54 | PDOC ---
Exam Guzman Demential Exam: Guzman Note: Please also refer to the separate dictated note~for this date of service dictated separately.~Patient seen individually. Discussed the patient with Nursing staff reviewed the chart.~Reviewed interim history and current functioning. Reviewed vital signs,~Labs/ Radiology~and current medications noted below. Continue current treatment with the changes noted in the dictated addendum note Assessment: Vital Signs: Vital Signs Date Time Temp Pulse Resp B/P (MAP) Pulse Ox O2 Delivery O2 Flow Rate FiO2 11/27/16 16:28 98.0 82 18 128/69 (88) 98 Room Air I&O Intake and Output 11/27/16 07:00 Intake Total 480 ml Balance 480 ml Intake Oral 480 ml Labs: Laboratory Tests Test 11/27/16 07:51 Glucose (Fingerstick) 104 mg/dL (70-99) H Current Medications: Meds: Current Medications Acetaminophen (Tylenol) 650 mg PRN Q6HRS PRN PO PAIN / TEMP; Start 11/14/16 at 19:45; Stop 11/15/16 at 17:36; Status DC Multi-Ingredient Ointment (Analgesic [place]) 1 gail PRN QID PRN TP MUSCLE PAIN; Start 11/14/16 at 19:45 Al Hydroxide/Mg Hydroxide (Mylanta Plus Xs) 15 ml PRN AFTMEALHC PRN PO DYSPEPSIA; Start 11/14/16 at 19:45 Magnesium Hydroxide (Milk Of Magnesia) 2,400 mg PRN QHS PRN PO CONSTIPATION; Start 11/14/16 at 19:45 Fluoxetine HCl (PROzac) 20 mg DAILY PO ; Start 11/15/16 at 09:00; Stop 11/15/16 at 09:00; Status DC Memantine (Namenda) 10 mg BID PO Last administered on 11/27/16 19:11; Start at 21:00 Aspirin (Aspirin Enteric Coated) 81 mg DAILY PO Last administered on 11/27/16 08:27; Start 11/15/16 at 09:00 Vitamin D (Vitamin D3) 1,000 unit DAILY PO Last administered on 11/27/16 08:25 ; Start 11/15/16 at 09:00 Vitamin D (Vitamin D3) 50,000 unit WEEKLY PO ; Start 11/21/16 at 09:00; Stop 11/21 at 09:00; Status DC Cyclosporine (Restasis) 1 drop BID OU Last administered on 11/27/16 19:11; Start 11/14/16 at 21:00 Estradiol (Estrace) 1 gail 3X/WEEK VG ; Start 11/16/16 at 09:00 Indapamide (Lozol) 1.25 mg DAILY PO Last administered on 11/24/16 08:59; Start 11/15/16 at 09:00; Stop 11/24/16 at 19:39; Status DC Levothyroxine Sodium (Synthroid) 100 mcg DAILY06 PO Last administered on 05:32; Start 11/15/16 at 06:00 Metformin HCl (Glucophage) 500 mg BIDWMEALS PO Last administered on 11/27/16 17:45; Start 11/15/16 at 08:00 Cyanocobalamin (Vitamin B-12) 500 mcg DAILY PO Last administered on 11/27/16 08:27; Start 11/15/16 at 09:00 Fish Oil (Fish Oil) 1,000 mg BID PO Last administered on 11/27/16 19:11; Start 11/14/16 at 21:00 Losartan Potassium (Cozaar) 100 mg DAILY PO Last administered on 11/24/16 08: 55; Start 11/15/16 at 09:00; Stop 11/24/16 at 19:39; Status DC Non-Formulary Medication 10 mg DAILY PO ; Start 11/15/16 at 09:00; Stop 11/15/16 at 09:00; Status DC Magnesium Oxide (Magnesium Oxide) 200 mg DAILY PO Last administered on 08:26; Start 11/15/16 at 09:00 Fluoxetine HCl (PROzac) 40 mg DAILY PO Last administered on 11/16/16 07:49; Start 11/15/16 at 09:00; Stop 11/17/16 at 19:20; Status DC Vitamin D (Vitamin D3) 50,000 unit Q2WKS PO ; Start 11/21/16 at 09:00 Pravastatin Sodium (Pravachol) 80 mg DAILY PO Last administered on 11/27/16 08 :30; Start 11/15/16 at 09:00 Coenzyme Q10 (Coenzyme Q10) 100 mg DAILY PO Last administered on 11/27/16 08: 30; Start 11/15/16 at 09:00 Acetaminophen (Tylenol) 650 mg PRN Q6HRS PRN PO PAIN / TEMP; Start 11/15/16 at 17:36 Clonidine HCl (Catapres Tts-2) 1 patch WEEKLY TD Last administered on 11/17/16 08:22; Start 11/17/16 at 09:00 Risperidone (RisperDAL) 0.25 mg HS SL ; Start 11/16/16 at 21:00; Stop 11/17/16 at 19:21; Status DC Risperidone (RisperDAL) 0.25 mg DAILY SL Last administered on 11/21/16 07:49; Start 11/18/16 at 09:00; Stop 11/21/16 at 18:31; Status DC Duloxetine HCl (Cymbalta) 30 mg DAILY PO Last administered on 11/20/16 08:09; Start 11/18/16 at 09:00; Stop 11/21/16 at 08:59; Status DC Duloxetine HCl (Cymbalta) 60 mg DAILY PO Last administered on 11/27/16 08:25; Start 11/21/16 at 09:00 Risperidone (RisperDAL) 0.5 mg DAILY SL Last administered on 11/22/16 08:41; Start 11/22/16 at 09:00; Stop 11/22/16 at 19:04; Status DC Risperidone (RisperDAL) 1 mg DAILY SL Last administered on 11/27/16 08:40; Start 11/23/16 at 09:00 Losartan Potassium (Cozaar) 50 mg DAILY PO Last administered on 11/27/16 08:30 ; Start 11/25/16 at 09:00 Active Scripts Active Reported Coq-10 (Ubidecarenone) 100 Mg Capsule 100 Mg PO DAILY Pravastatin Sodium 80 Mg Tablet 80 Mg PO DAILY Restasis (Cyclosporine) 1 Each Droperette 1 Drop OU BID Namenda (Memantine Hcl) 10 Mg Tablet 10 Mg PO BID Metformin Hcl 500 Mg Tablet 500 Mg PO BIDWMEALS Magnesium Oxide 250 Mg Tablet 250 Mg PO DAILY Lutein 10 Mg Tablet 10 Mg PO DAILY Levothyroxine Sodium 100 Mcg Tablet 100 Mcg PO DAILY06 [place] 3-6-9 1,200 mg Softgel (Fish Oil/Borage/Flax/Om3,6,9#1) 1,200 Mg Capsule 1 ,200 Mg PO BID Amoxicillin 500 Mg Capsule 500 Mg PO PRN DAILY PRN 4 Days [Coconut Oil] 1 Tsp PO BID Vitamin D3 (Cholecalciferol (Vitamin D3)) 50,000 Unit Capsule 50,000 Unit PO Q2WKS Vitamin D3 (Cholecalciferol (Vitamin D3)) 1,000 Unit Tablet 2,000 Unit PO DAILY Vitamin B-12 (Cyanocobalamin (Vitamin B-12)) 500 Mcg Tablet 500 Mcg PO DAILY Prozac (Fluoxetine Hcl) 20 Mg Capsule 40 Mg PO DAILY Irbesartan 300 Mg Tablet 300 Mg PO DAILY Indapamide 1.25 Mg Tablet 1.25 Mg PO DAILY Estrace (Estradiol) 42.5 Gm Cream.appl 1 Gm VG 3X/WEEK Aspir-Low (Aspirin) 81 Mg Tablet.dr 81 Mg PO DAILY Diagnosis: Problems: (1) Anxiety disorder (2) Psychotic depression (3) Major depressive disorder, recurrent episode (4) Psychosis, atypical (5) Mild cognitive disorder KARLEE GRIFFIN MD Nov 27, 2016 19:54
--- NOTE | 2016-11-28 03:58 | PN ---
DATE: 11/26/2016 PSYCHIATRIC PROGRESS NOTE This late entry, 11/26/2016, covers elements not covered in my initial note of 11/26/2016. Met with the patient evening of 11/26/2016. Per nursing report, the patient spit out her medications morning of 11/26/2016, but took her Risperdal and some fluids. She walked with physical therapy staff, kept her eyes closed, and since later in the evening, she has again not been very interactive, withdrawn, closing her eyes, not answering questions, having repeated episodes of not talking, at other times she is quite verbal appropriate. Discussed with Dr. Wade, who is going to go ahead and request an EEG. REVIEW OF SYSTEMS: No CV, , pulmonary, eye, ENT system symptoms on review. MENTAL STATUS EXAM: Oriented reasonably when she is interactive, otherwise refuses to answer. Insight, judgment, recent memory is impaired. Language function intact. Mood and affect still depressed. No active suicidal or homicidal ideation. LABORATORY DATA: Reviewed. IMPRESSION: Unchanged from initial note. PLAN: Continue current psychotropics, reviewed drug interactions, risk/benefit ratio favors no further change as of 11/26/2016. MAN Kevin GRIFFIN MD DR: VENKAT/heron JOB#: [id number] / [id number]
[2016-11-28] MEDS: LEVOTHYROXINE 100 MCG TABLET PO SCH (05:48)
[2016-11-28 06:28] VITALS: BP 99/57
[2016-11-28] MEDS: PRAVASTATIN 20 MG TABLET. PO SCH (07:34)
[2016-11-28] MEDS: CYANOCOBALAMIN (VITAMIN B-12) 250 MCG TABLET PO SCH (07:35)
[2016-11-28] MEDS: MAGNESIUM OXIDE 400 MG TABLET PO SCH (07:35)
[2016-11-28] MEDS: CHOLECALCIFEROL (VITAMIN D3) 1,000 UNIT TABLET PO SCH (07:36)
[2016-11-28] MEDS: DULoxetine HCL 60 MG CAPSULE.DR PO SCH (07:36)
[2016-11-28] MEDS: LOSARTAN 50 MG TABLET. PO SCH ×2 (07:36→07:44)
[2016-11-28] MEDS: UBIDECARENONE 50 MG CAPSULE. PO SCH (07:36)
[2016-11-28] MEDS: MEMANTINE 10 MG TABLET. PO SCH ×3 (07:36→21:00)
[2016-11-28] MEDS: metFORMIN 500 MG TABLET PO SCH ×2 (07:36→17:40)
[2016-11-28] MEDS: ASPIRIN ENTERIC COATED 81 MG TABLET.DR. PO SCH (07:36)
[2016-11-28] MEDS: OMEGA-3 FATTY ACIDS/FISH OIL 1,000 MG CAPSULE. PO SCH ×3 (07:36→21:00)
[2016-11-28] MEDS: cycloSPORINE 0.05% OPTH 1 DROP DROPERETTE OU SCH ×2 (07:37→20:41)
[2016-11-28] MEDS: risperiDONE ORAL 1 MG/ML 30ml BOTTLE. SL SCH (07:43)
[2016-11-28] MEDS: ESTRADIOL 0.01% VAGINAL CREAM 42.5GM TUBE. VG SCH (07:44)
[2016-11-28 07:56] LABS: BASO % 1 % (0-3); EOS # 0.1 x10^3/uL (0.0-0.7); EOS % 2 % (0-3); HEMATOCRIT 35.4 % (36.0-47.0); HEMOGLOBIN 11.3 g/dL (12.0-15.5); LYMPH # 1.6 x10^3/uL (1.0-4.8); LYMPH % 27 % (24-48); MEAN CORPUSCULAR HEMOGLOBIN 27 pg (25-35); MEAN CORPUSCULAR HGB CONC 32 g/dL (31-37); MEAN CORPUSCULAR VOLUME 85 fL (79-100); MONO # 0.4 x10^3/uL (0.0-1.1); MONO % 7 % (0-9); NEUT # 3.8 x10^3uL (1.8-7.7); NEUT % 63 % (31-73); PLATELET COUNT 176 x10^3/uL (140-400); RED BLOOD COUNT 4.15 x10^6/uL (3.50-5.40); RED CELL DISTRIBUTION WIDTH 13.7 % (11.5-14.5)
[2016-11-28 08:10] LABS: ALBUMIN 3.2 g/dL (3.4-5.0); ALBUMIN/GLOBULIN RATIO 0.9 (1.0-1.7); CALCIUM 8.7 mg/dL (8.5-10.1); CREATININE 0.6 mg/dL (0.6-1.0); GFR 95.7; TOTAL BILIRUBIN 0.3 mg/dL (0.2-1.0); TOTAL PROTEIN 6.6 g/dL (6.4-8.2)
[2016-11-28] MEDS: MAGNESIUM HYDROXIDE 2,400 MG/30 ML ORAL.SUSP. PO PRN (13:51)
[2016-11-28 16:31] VITALS: BP 148/82
[2016-11-28] MEDS ORDERED: LORazepam 0.5 MG TABLET PO PRN (18:30)
--- NOTE | 2016-11-28 19:53 | PDOC ---
Exam Guzman Demential Exam: Guzman Note: Please also refer to the separate dictated note~for this date of service dictated separately.~Patient seen individually. Discussed the patient with Nursing staff reviewed the chart.~Reviewed interim history and current functioning. Reviewed vital signs,~Labs/ Radiology~and current medications noted below. Continue current treatment with the changes noted in the dictated addendum note Assessment: Vital Signs: Vital Signs Date Time Temp Pulse Resp B/P (MAP) Pulse Ox O2 Delivery O2 Flow Rate FiO2 11/28/16 16:31 97.9 85 20 148/82 (104) 100 11/27/16 16:28 Room Air I&O Intake and Output 11/28/16 07:00 Intake Total 1320 ml Balance 1320 ml Intake Oral 1320 ml Labs: Laboratory Tests Test 11/28/16 07:11 11/28/16 07:30 White Blood Count 6.0 x10^3/uL (4.0-11.0) Red Blood Count 4.15 x10^6/uL (3.50-5.40) Hemoglobin 11.3 g/dL (12.0-15.5) L Hematocrit 35.4 % (36.0-47.0) L Mean Corpuscular Volume 85 fL (79-100) Mean Corpuscular Hemoglobin 27 pg (25-35) Mean Corpuscular Hemoglobin Concent 32 g/dL (31-37) Red Cell Distribution Width 13.7 % (11.5-14.5) Platelet Count 176 x10^3/uL (140-400) Neutrophils (%) (Auto) 63 % (31-73) Lymphocytes (%) (Auto) 27 % (24-48) Monocytes (%) (Auto) 7 % (0-9) Eosinophils (%) (Auto) 2 % (0-3) Basophils (%) (Auto) 1 % (0-3) Neutrophils # (Auto) 3.8 x10^3uL (1.8-7.7) Lymphocytes # (Auto) 1.6 x10^3/uL (1.0-4.8) Monocytes # (Auto) 0.4 x10^3/uL (0.0-1.1) Eosinophils # (Auto) 0.1 x10^3/uL (0.0-0.7) Basophils # (Auto) 0.0 x10^3/uL (0.0-0.2) Sodium Level 143 mmol/L (136-145) Potassium Level 4.0 mmol/L (3.5-5.1) Chloride Level 105 mmol/L (98-107) Carbon Dioxide Level 34 mmol/L (21-32) H Anion Gap 4 (6-14) L Blood Urea Nitrogen 19 mg/dL (7-20) Creatinine 0.6 mg/dL (0.6-1.0) Estimated GFR (Cockcroft-Gault) 95.7 BUN/Creatinine Ratio 32 (6-20) H Glucose Level 108 mg/dL (70-99) H Calcium Level 8.7 mg/dL (8.5-10.1) Total Bilirubin 0.3 mg/dL (0.2-1.0) Aspartate Amino Transferase (AST) 23 U/L (15-37) Alanine Aminotransferase (ALT) 47 U/L (14-59) Alkaline Phosphatase 76 U/L (46-116) Total Protein 6.6 g/dL (6.4-8.2) Albumin 3.2 g/dL (3.4-5.0) L Albumin/Globulin Ratio 0.9 (1.0-1.7) L Glucose (Fingerstick) 86 mg/dL (70-99) Current Medications: Meds: Current Medications Acetaminophen (Tylenol) 650 mg PRN Q6HRS PRN PO PAIN / TEMP; Start 11/14/16 at 19:45; Stop 11/15/16 at 17:36; Status DC Multi-Ingredient Ointment (Analgesic [place]) 1 gail PRN QID PRN TP MUSCLE PAIN; Start 11/14/16 at 19:45 Al Hydroxide/Mg Hydroxide (Mylanta Plus Xs) 15 ml PRN AFTMEALHC PRN PO DYSPEPSIA; Start 11/14/16 at 19:45 Magnesium Hydroxide (Milk Of Magnesia) 2,400 mg PRN QHS PRN PO CONSTIPATION Last administered on 11/28/16 13:51; Start 11/14/16 at 19:45 Fluoxetine HCl (PROzac) 20 mg DAILY PO ; Start 11/15/16 at 09:00; Stop 11/15/16 at 09:00; Status DC Memantine (Namenda) 10 mg BID PO Last administered on 11/28/16 07:36; Start at 21:00 Aspirin (Aspirin Enteric Coated) 81 mg DAILY PO Last administered on 11/28/16 07:36; Start 11/15/16 at 09:00 Vitamin D (Vitamin D3) 1,000 unit DAILY PO Last administered on 11/28/16 07:36 ; Start 11/15/16 at 09:00 Vitamin D (Vitamin D3) 50,000 unit WEEKLY PO ; Start 11/21/16 at 09:00; Stop 11/21 at 09:00; Status DC Cyclosporine (Restasis) 1 drop BID OU Last administered on 11/28/16 07:37; Start 11/14/16 at 21:00 Estradiol (Estrace) 1 gail 3X/WEEK VG Last administered on 11/28/16 07:44; Start 11/16/16 at 09:00 Indapamide (Lozol) 1.25 mg DAILY PO Last administered on 11/24/16 08:59; Start 11/15/16 at 09:00; Stop 11/24/16 at 19:39; Status DC Levothyroxine Sodium (Synthroid) 100 mcg DAILY06 PO Last administered on 05:48; Start 11/15/16 at 06:00 Metformin HCl (Glucophage) 500 mg BIDWMEALS PO Last administered on 11/28/16 17:40; Start 11/15/16 at 08:00 Cyanocobalamin (Vitamin B-12) 500 mcg DAILY PO Last administered on 11/28/16 07:35; Start 11/15/16 at 09:00 Fish Oil (Fish Oil) 1,000 mg BID PO Last administered on 11/28/16 07:36; Start 11/14/16 at 21:00 Losartan Potassium (Cozaar) 100 mg DAILY PO Last administered on 11/24/16 08: 55; Start 11/15/16 at 09:00; Stop 11/24/16 at 19:39; Status DC Non-Formulary Medication 10 mg DAILY PO ; Start 11/15/16 at 09:00; Stop 11/15/16 at 09:00; Status DC Magnesium Oxide (Magnesium Oxide) 200 mg DAILY PO Last administered on 07:35; Start 11/15/16 at 09:00 Fluoxetine HCl (PROzac) 40 mg DAILY PO Last administered on 11/16/16 07:49; Start 11/15/16 at 09:00; Stop 11/17/16 at 19:20; Status DC Vitamin D (Vitamin D3) 50,000 unit Q2WKS PO ; Start 11/21/16 at 09:00 Pravastatin Sodium (Pravachol) 80 mg DAILY PO Last administered on 11/28/16 07 :34; Start 11/15/16 at 09:00 Coenzyme Q10 (Coenzyme Q10) 100 mg DAILY PO Last administered on 11/28/16 07: 36; Start 11/15/16 at 09:00 Acetaminophen (Tylenol) 650 mg PRN Q6HRS PRN PO PAIN / TEMP; Start 11/15/16 at 17:36 Clonidine HCl (Catapres Tts-2) 1 patch WEEKLY TD Last administered on 11/17/16 08:22; Start 11/17/16 at 09:00 Risperidone (RisperDAL) 0.25 mg HS SL ; Start 11/16/16 at 21:00; Stop 11/17/16 at 19:21; Status DC Risperidone (RisperDAL) 0.25 mg DAILY SL Last administered on 11/21/16 07:49; Start 11/18/16 at 09:00; Stop 11/21/16 at 18:31; Status DC Duloxetine HCl (Cymbalta) 30 mg DAILY PO Last administered on 11/20/16 08:09; Start 11/18/16 at 09:00; Stop 11/21/16 at 08:59; Status DC Duloxetine HCl (Cymbalta) 60 mg DAILY PO Last administered on 11/28/16 07:36; Start 11/21/16 at 09:00 Risperidone (RisperDAL) 0.5 mg DAILY SL Last administered on 11/22/16 08:41; Start 11/22/16 at 09:00; Stop 11/22/16 at 19:04; Status DC Risperidone (RisperDAL) 1 mg DAILY SL Last administered on 11/28/16 07:43; Start 11/23/16 at 09:00 Losartan Potassium (Cozaar) 50 mg DAILY PO Last administered on 11/27/16 08:30 ; Start 11/25/16 at 09:00 Lorazepam (Ativan) 0.25 mg PRN Q2HR PRN PO ANXIETY / AGITATION; Start 11/28/16 at 18:30 Active Scripts Active Reported Coq-10 (Ubidecarenone) 100 Mg Capsule 100 Mg PO DAILY Pravastatin Sodium 80 Mg Tablet 80 Mg PO DAILY Restasis (Cyclosporine) 1 Each Droperette 1 Drop OU BID Namenda (Memantine Hcl) 10 Mg Tablet 10 Mg PO BID Metformin Hcl 500 Mg Tablet 500 Mg PO BIDWMEALS Magnesium Oxide 250 Mg Tablet 250 Mg PO DAILY Lutein 10 Mg Tablet 10 Mg PO DAILY Levothyroxine Sodium 100 Mcg Tablet 100 Mcg PO DAILY06 [place] 3-6-9 1,200 mg Softgel (Fish Oil/Borage/Flax/Om3,6,9#1) 1,200 Mg Capsule 1 ,200 Mg PO BID Amoxicillin 500 Mg Capsule 500 Mg PO PRN DAILY PRN 4 Days [Coconut Oil] 1 Tsp PO BID Vitamin D3 (Cholecalciferol (Vitamin D3)) 50,000 Unit Capsule 50,000 Unit PO Q2WKS Vitamin D3 (Cholecalciferol (Vitamin D3)) 1,000 Unit Tablet 2,000 Unit PO DAILY Vitamin B-12 (Cyanocobalamin (Vitamin B-12)) 500 Mcg Tablet 500 Mcg PO DAILY Prozac (Fluoxetine Hcl) 20 Mg Capsule 40 Mg PO DAILY Irbesartan 300 Mg Tablet 300 Mg PO DAILY Indapamide 1.25 Mg Tablet 1.25 Mg PO DAILY Estrace (Estradiol) 42.5 Gm Cream.appl 1 Gm VG 3X/WEEK Aspir-Low (Aspirin) 81 Mg Tablet. 81 Mg PO DAILY Diagnosis: Problems: (1) Anxiety disorder (2) Psychotic depression (3) Major depressive disorder, recurrent episode (4) Psychosis, atypical (5) Mild cognitive disorder KARLEE GRIFFIN MD Nov 28, 2016 19:53
[2016-11-29 05:53] VITALS: BP 109/58
[2016-11-29] MEDS: LEVOTHYROXINE 100 MCG TABLET PO SCH (06:23)
[2016-11-29] MEDS: MAGNESIUM HYDROXIDE 2,400 MG/30 ML ORAL.SUSP. PO PRN (06:28)
--- NOTE | 2016-11-29 07:15 | PN ---
DATE: 11/27/2016 PSYCHIATRIC PROGRESS NOTE This late entry 11/27/2016, covers elements not covered in my initial note of 11/27/2016. SUBJECTIVE: I met with the patient evening of 11/27/2016. Per nursing report, she has done reasonably well, takes her medications crushed, but she spit them out the morning of 11/27/2016, took them later, slept 8-1/2 hours previous evening. We will check CBC, [facility] morning of 11/28/2016. She has not had the spells of dissociation during the day on 11/27/2016. I discussed the patient with Dr. Wade, Neurology. EEG is awaited. REVIEW OF SYSTEMS: No CV, , pulmonary, eye, ENT system symptoms on review. MENTAL STATUS EXAM: Oriented to herself and situation. Speech is coherent, has some latency. Abstraction fair, computation impaired, language function intact, attention span short. Mood and affect still depressed, less psychotic. LABORATORY DATA: Reviewed. IMPRESSION: Unchanged from initial note. PLAN: Continue psychotropics mentioned in my initial note. Check CBC, CMP morning of 11/28/2016. MAN Kevin GRIFFIN MD DR: VENKAT/heron JOB#: [id number] / [id number]
[2016-11-29] MEDS: metFORMIN 500 MG TABLET PO SCH ×3 (08:00→17:00)
[2016-11-29] MEDS: cycloSPORINE 0.05% OPTH 1 DROP DROPERETTE OU SCH ×3 (08:14→20:23)
[2016-11-29] MEDS: CYANOCOBALAMIN (VITAMIN B-12) 250 MCG TABLET PO SCH ×2 (08:14→09:00)
[2016-11-29] MEDS: OMEGA-3 FATTY ACIDS/FISH OIL 1,000 MG CAPSULE. PO SCH ×4 (08:15→21:00)
[2016-11-29] MEDS: MEMANTINE 10 MG TABLET. PO SCH ×4 (08:15→21:00)
[2016-11-29] MEDS: PRAVASTATIN 20 MG TABLET. PO SCH ×2 (08:15→09:00)
[2016-11-29] MEDS: CHOLECALCIFEROL (VITAMIN D3) 1,000 UNIT TABLET PO SCH ×2 (08:16→09:00)
[2016-11-29] MEDS: LOSARTAN 50 MG TABLET. PO SCH ×2 (08:16→09:00)
[2016-11-29] MEDS: MAGNESIUM OXIDE 400 MG TABLET PO SCH ×2 (08:16→09:00)
[2016-11-29] MEDS: UBIDECARENONE 50 MG CAPSULE. PO SCH ×2 (08:16→09:00)
[2016-11-29] MEDS: ASPIRIN ENTERIC COATED 81 MG TABLET.DR. PO SCH ×2 (08:16→09:00)
[2016-11-29] MEDS: DULoxetine HCL 60 MG CAPSULE.DR PO SCH ×2 (08:17→09:00)
[2016-11-29] MEDS: risperiDONE ORAL 1 MG/ML 30ml BOTTLE. SL SCH (08:18)
[2016-11-29 16:13] VITALS: BP 117/73
--- NOTE | 2016-11-29 23:49 | PN ---
DATE: 11/28/2016 PSYCHIATRIC PROGRESS NOTE This late entry of 11/28/2016, covers elements not covered in my initial note. SUBJECTIVE: I met with the patient in the evening of 11/28/2016. The patient slept 8-1/4 hours previous evening. Per nursing report, she has had a very good day until about 5 p.m. She then refused supper, asking nursing staff to "get out of here." Refused to open her eyes, withdrawn, would not talk to me as I met with her in her room, eyes closed, lying in bed. REVIEW OF SYSTEMS: No CV, , pulmonary, eye, ENT system symptoms on review. Not forthcoming with responses. MENTAL STATUS EXAM: When she is awake and alert, she is reasonably oriented. Speech coherent, abstraction fair, computation impaired, language function intact. Mood and affect still depressed, but when she is withdrawn, she refuses to answer anything. It is quite dramatic difference between the two. Discussed with Dr. Wade. EEG is still awaited. LABORATORY DATA: Reviewed. IMPRESSION: Unchanged from initial note. PLAN: Continue current psychotropics including Namenda, Risperdal, Cymbalta. Review drug interactions. Risk/benefit ratio favors no further change as of now. KARLEE GRIFFIN MD DR: VENKAT/heron JOB#: [id number] / [id number]
[2016-11-30] MEDS: LEVOTHYROXINE 100 MCG TABLET PO SCH (05:52)
[2016-11-30 06:10] VITALS: BP 123/73
[2016-11-30] MEDS: CHOLECALCIFEROL (VITAMIN D3) 1,000 UNIT TABLET PO SCH (09:00)
[2016-11-30] MEDS: ASPIRIN ENTERIC COATED 81 MG TABLET.DR. PO SCH (09:00)
[2016-11-30] MEDS: OMEGA-3 FATTY ACIDS/FISH OIL 1,000 MG CAPSULE. PO SCH ×2 (09:00→19:44)
[2016-11-30] MEDS: ESTRADIOL 0.01% VAGINAL CREAM 42.5GM TUBE. VG SCH (09:00)
[2016-11-30] MEDS: MAGNESIUM OXIDE 400 MG TABLET PO SCH (09:00)
[2016-11-30] MEDS: LOSARTAN 50 MG TABLET. PO SCH (09:00)
[2016-11-30] MEDS: MEMANTINE 10 MG TABLET. PO SCH ×2 (09:00→19:44)
[2016-11-30] MEDS: cycloSPORINE 0.05% OPTH 1 DROP DROPERETTE OU SCH ×2 (09:38→19:44)
[2016-11-30] MEDS: metFORMIN 500 MG TABLET PO SCH ×2 (09:38→17:10)
[2016-11-30] MEDS: UBIDECARENONE 50 MG CAPSULE. PO SCH (09:38)
[2016-11-30] MEDS: PRAVASTATIN 20 MG TABLET. PO SCH (09:39)
[2016-11-30] MEDS: CYANOCOBALAMIN (VITAMIN B-12) 250 MCG TABLET PO SCH (09:39)
[2016-11-30] MEDS: DULoxetine HCL 60 MG CAPSULE.DR PO SCH (10:19)
[2016-11-30] MEDS: risperiDONE ORAL 1 MG/ML 30ml BOTTLE. SL SCH (10:19)
[2016-11-30 16:39] VITALS: BP 137/63
--- NOTE | 2016-11-30 19:56 | PDOC ---
Exam Guzman Demential Exam: Guzman Note: Please also refer to the separate dictated note~for this date of service dictated separately.~Patient seen individually. Discussed the patient with Nursing staff reviewed the chart.~Reviewed interim history and current functioning. Reviewed vital signs,~Labs/ Radiology~and current medications noted below. Continue current treatment with the changes noted in the dictated addendum note Assessment: Vital Signs: Vital Signs Date Time Temp Pulse Resp B/P (MAP) Pulse Ox O2 Delivery O2 Flow Rate FiO2 11/30/16 16:39 97.2 74 16 137/63 (87) 99 11/27/16 16:28 Room Air I&O Intake and Output 11/30/16 07:00 Intake Total 1320 ml Balance 1320 ml Intake Oral 1320 ml Labs: Laboratory Tests Test 11/30/16 07:37 Glucose (Fingerstick) 85 mg/dL (70-99) Current Medications: Meds: Current Medications Acetaminophen (Tylenol) 650 mg PRN Q6HRS PRN PO PAIN / TEMP; Start 11/14/16 at 19:45; Stop 11/15/16 at 17:36; Status DC Multi-Ingredient Ointment (Analgesic [place]) 1 gail PRN QID PRN TP MUSCLE PAIN; Start 11/14/16 at 19:45 Al Hydroxide/Mg Hydroxide (Mylanta Plus Xs) 15 ml PRN AFTMEALHC PRN PO DYSPEPSIA; Start 11/14/16 at 19:45 Magnesium Hydroxide (Milk Of Magnesia) 2,400 mg PRN QHS PRN PO CONSTIPATION Last administered on 11/29/16 06:28; Start 11/14/16 at 19:45 Fluoxetine HCl (PROzac) 20 mg DAILY PO ; Start 11/15/16 at 09:00; Stop 11/15/16 at 09:00; Status DC Memantine (Namenda) 10 mg BID PO Last administered on 11/30/16 19:44; Start at 21:00 Aspirin (Aspirin Enteric Coated) 81 mg DAILY PO Last administered on 11/28/16 07:36; Start 11/15/16 at 09:00 Vitamin D (Vitamin D3) 1,000 unit DAILY PO Last administered on 11/28/16 07:36 ; Start 11/15/16 at 09:00 Vitamin D (Vitamin D3) 50,000 unit WEEKLY PO ; Start 11/21/16 at 09:00; Stop 11/21 at 09:00; Status DC Cyclosporine (Restasis) 1 drop BID OU Last administered on 11/30/16 19:44; Start 11/14/16 at 21:00 Estradiol (Estrace) 1 gail 3X/WEEK VG Last administered on 11/28/16 07:44; Start 11/16/16 at 09:00 Indapamide (Lozol) 1.25 mg DAILY PO Last administered on 11/24/16 08:59; Start 11/15/16 at 09:00; Stop 11/24/16 at 19:39; Status DC Levothyroxine Sodium (Synthroid) 100 mcg DAILY06 PO Last administered on 05:52; Start 11/15/16 at 06:00 Metformin HCl (Glucophage) 500 mg BIDWMEALS PO Last administered on 11/30/16 17:10; Start 11/15/16 at 08:00 Cyanocobalamin (Vitamin B-12) 500 mcg DAILY PO Last administered on 11/30/16 09:39; Start 11/15/16 at 09:00 Fish Oil (Fish Oil) 1,000 mg BID PO Last administered on 11/30/16 19:44; Start 11/14/16 at 21:00 Losartan Potassium (Cozaar) 100 mg DAILY PO Last administered on 11/24/16 08: 55; Start 11/15/16 at 09:00; Stop 11/24/16 at 19:39; Status DC Non-Formulary Medication 10 mg DAILY PO ; Start 11/15/16 at 09:00; Stop 11/15/16 at 09:00; Status DC Magnesium Oxide (Magnesium Oxide) 200 mg DAILY PO Last administered on 07:35; Start 11/15/16 at 09:00 Fluoxetine HCl (PROzac) 40 mg DAILY PO Last administered on 11/16/16 07:49; Start 11/15/16 at 09:00; Stop 11/17/16 at 19:20; Status DC Vitamin D (Vitamin D3) 50,000 unit Q2WKS PO ; Start 11/21/16 at 09:00 Pravastatin Sodium (Pravachol) 80 mg DAILY PO Last administered on 11/30/16 09 :39; Start 11/15/16 at 09:00 Coenzyme Q10 (Coenzyme Q10) 100 mg DAILY PO Last administered on 11/30/16 09: 38; Start 11/15/16 at 09:00 Acetaminophen (Tylenol) 650 mg PRN Q6HRS PRN PO PAIN / TEMP; Start 11/15/16 at 17:36 Clonidine HCl (Catapres Tts-2) 1 patch WEEKLY TD Last administered on 11/17/16 08:22; Start 11/17/16 at 09:00 Risperidone (RisperDAL) 0.25 mg HS SL ; Start 11/16/16 at 21:00; Stop 11/17/16 at 19:21; Status DC Risperidone (RisperDAL) 0.25 mg DAILY SL Last administered on 11/21/16 07:49; Start 11/18/16 at 09:00; Stop 11/21/16 at 18:31; Status DC Duloxetine HCl (Cymbalta) 30 mg DAILY PO Last administered on 11/20/16 08:09; Start 11/18/16 at 09:00; Stop 11/21/16 at 08:59; Status DC Duloxetine HCl (Cymbalta) 60 mg DAILY PO Last administered on 11/30/16 10:19; Start 11/21/16 at 09:00 Risperidone (RisperDAL) 0.5 mg DAILY SL Last administered on 11/22/16 08:41; Start 11/22/16 at 09:00; Stop 11/22/16 at 19:04; Status DC Risperidone (RisperDAL) 1 mg DAILY SL Last administered on 11/30/16 10:19; Start 11/23/16 at 09:00 Losartan Potassium (Cozaar) 50 mg DAILY PO Last administered on 11/27/16 08:30 ; Start 11/25/16 at 09:00 Lorazepam (Ativan) 0.25 mg PRN Q2HR PRN PO ANXIETY / AGITATION; Start 11/28/16 at 18:30 Active Scripts Active Reported Coq-10 (Ubidecarenone) 100 Mg Capsule 100 Mg PO DAILY Pravastatin Sodium 80 Mg Tablet 80 Mg PO DAILY Restasis (Cyclosporine) 1 Each Droperette 1 Drop OU BID Namenda (Memantine Hcl) 10 Mg Tablet 10 Mg PO BID Metformin Hcl 500 Mg Tablet 500 Mg PO BIDWMEALS Magnesium Oxide 250 Mg Tablet 250 Mg PO DAILY Lutein 10 Mg Tablet 10 Mg PO DAILY Levothyroxine Sodium 100 Mcg Tablet 100 Mcg PO DAILY06 [place] 3-6-9 1,200 mg Softgel (Fish Oil/Borage/Flax/Om3,6,9#1) 1,200 Mg Capsule 1 ,200 Mg PO BID Amoxicillin 500 Mg Capsule 500 Mg PO PRN DAILY PRN 4 Days [Coconut Oil] 1 Tsp PO BID Vitamin D3 (Cholecalciferol (Vitamin D3)) 50,000 Unit Capsule 50,000 Unit PO Q2WKS Vitamin D3 (Cholecalciferol (Vitamin D3)) 1,000 Unit Tablet 2,000 Unit PO DAILY Vitamin B-12 (Cyanocobalamin (Vitamin B-12)) 500 Mcg Tablet 500 Mcg PO DAILY Prozac (Fluoxetine Hcl) 20 Mg Capsule 40 Mg PO DAILY Irbesartan 300 Mg Tablet 300 Mg PO DAILY Indapamide 1.25 Mg Tablet 1.25 Mg PO DAILY Estrace (Estradiol) 42.5 Gm Cream.appl 1 Gm VG 3X/WEEK Aspir-Low (Aspirin) 81 Mg Tablet. 81 Mg PO DAILY Diagnosis: Problems: (1) Anxiety disorder (2) Psychotic depression (3) Major depressive disorder, recurrent episode (4) Psychosis, atypical (5) Mild cognitive disorder KARLEE GRIFFIN MD Nov 30, 2016 19:56
--- NOTE | 2016-12-01 02:16 | PN ---
DATE: 11/29/2016 This late entry 11/29/2016 covers elements not covered in my initial note of 11/29/2016. SUBJECTIVE: The patient was staffed with treatment team meeting with the entire team morning of 11/29/2016, seen individually evening of 11/29/2016. She slept 7 hours previous evening. She refused her meds on the previous day, but had no spells of dissociation, which is an improvement. Appetite 75%. The patient's daughter, Yanique, attended the treatment team meeting morning of 11/29/2016. Reviewed the patient's history, diagnosis, progress, change in psychotropics. REVIEW OF SYSTEMS: Ambulation impaired. No CV, , pulmonary, eye system symptoms on review. MENTAL STATUS EXAM: Oriented to herself and situation. Speech is coherent, abstraction fair, computation impaired, language function intact. Mood and affect still somewhat dysphoric, but improved. No active suicidal or homicidal ideation. Less psychotic. LABORATORY DATA: Reviewed. IMPRESSION: Unchanged from initial note. PLAN: Continue current psychotropics reviewed and drug interactions risk/benefit ratio favors no further change at this time. May need to increase Risperdal if needed and/or the Cymbalta. KARLEE GRIFFIN MD DR: VENKAT/heron JOB#: [id number] / [id number]
[2016-12-01] MEDS: LEVOTHYROXINE 100 MCG TABLET PO SCH (05:21)
[2016-12-01 06:10] VITALS: BP 118/70
[2016-12-01] MEDS: metFORMIN 500 MG TABLET PO SCH ×2 (08:19→17:37)
[2016-12-01] MEDS: UBIDECARENONE 50 MG CAPSULE. PO SCH (08:19)
[2016-12-01] MEDS: OMEGA-3 FATTY ACIDS/FISH OIL 1,000 MG CAPSULE. PO SCH ×3 (08:19→21:00)
[2016-12-01] MEDS: CYANOCOBALAMIN (VITAMIN B-12) 250 MCG TABLET PO SCH (08:20)
[2016-12-01] MEDS: CHOLECALCIFEROL (VITAMIN D3) 1,000 UNIT TABLET PO SCH (08:20)
[2016-12-01] MEDS: MAGNESIUM OXIDE 400 MG TABLET PO SCH (08:20)
[2016-12-01] MEDS: DULoxetine HCL 60 MG CAPSULE.DR PO SCH (08:20)
[2016-12-01] MEDS: MEMANTINE 10 MG TABLET. PO SCH ×3 (08:21→21:00)
[2016-12-01] MEDS: cycloSPORINE 0.05% OPTH 1 DROP DROPERETTE OU SCH ×2 (08:21→19:24)
[2016-12-01] MEDS: ASPIRIN ENTERIC COATED 81 MG TABLET.DR. PO SCH (08:21)
[2016-12-01] MEDS: LOSARTAN 50 MG TABLET. PO SCH (08:21)
[2016-12-01] MEDS: risperiDONE ORAL 1 MG/ML 30ml BOTTLE. SL SCH (08:31)
[2016-12-01] MEDS: cloNIDine TTS-2 1 PATCH PATCH TD SCH (08:32)
[2016-12-01] MEDS: PRAVASTATIN 20 MG TABLET. PO SCH (08:33)
[2016-12-01 15:50] VITALS: BP 150/46
--- NOTE | 2016-12-01 20:52 | PN ---
DATE: 11/30/2016 This late entry 11/30/2016 covers elements not covered in my initial note of 11/30/2016. SUBJECIVE: Met with the patient in the evening of 12/01/2015. She had another spell of withdrawing, shutting her eyes, nonresponsiveness. Last evening, the patient refused to eat. She had discussed this with Dr. Wade directly. No spells noted on 11/30/2016. She refused her a.m. meds on 11/30/2016, later took them in boost. Only will take her medications when they are opened in front of her from the package. She is paranoid, suspicious about this. I have asked the nursing staff to have the daughter on the telephone to convince the patient for the EEG if this is attempted again. No CV, , pulmonary, eye system symptoms on review. MENTAL STATUS EXAM: Oriented to herself and situation. Speech moderate latency, pleasant, verbal, very appreciative of my visit and caring for her, and trying to help her get better. Abstraction fair, computation impaired, language function intact, attention span short. Mood and affect withdrawn, still depressed, paranoid. LABORATORY DATA: Reviewed. IMPRESSION: Unchanged from initial note. PLAN: Continue current psychotropics including the Namenda, Risperdal 1 mg a day, Cymbalta, Ativan p.r.n. May need to increase the Risperdal and/or the Cymbalta, which is at 60 mg a day. Reviewed draw interactions. Risk/benefit ratio favors no further change for now. KARLEE GRIFFIN MD DR: VENKAT/heron JOB#: [id number] / [id number]
--- NOTE | 2016-12-01 23:24 | PDOC ---
Exam Guzman Demential Exam: Guzman Note: Please also refer to the separate dictated note~for this date of service dictated separately.~Patient seen individually. Discussed the patient with Nursing staff reviewed the chart.~Reviewed interim history and current functioning. Reviewed vital signs,~Labs/ Radiology~and current medications noted below. Continue current treatment with the changes noted in the dictated addendum note Assessment: Vital Signs: Vital Signs Date Time Temp Pulse Resp B/P (MAP) Pulse Ox O2 Delivery O2 Flow Rate FiO2 12/01/16 15:50 98.1 80 19 150/46 (80) 98 12/01/16 06:10 Room Air I&O Intake and Output 12/01/16 07:00 Intake Total 1500 ml Balance 1500 ml Intake Oral 1500 ml Labs: Laboratory Tests Test 12/01/16 07:12 Glucose (Fingerstick) 110 mg/dL (70-99) H Current Medications: Meds: Current Medications Acetaminophen (Tylenol) 650 mg PRN Q6HRS PRN PO PAIN / TEMP; Start 11/14/16 at 19:45; Stop 11/15/16 at 17:36; Status DC Multi-Ingredient Ointment (Analgesic [place]) 1 gail PRN QID PRN TP MUSCLE PAIN; Start 11/14/16 at 19:45 Al Hydroxide/Mg Hydroxide (Mylanta Plus Xs) 15 ml PRN AFTMEALHC PRN PO DYSPEPSIA; Start 11/14/16 at 19:45 Magnesium Hydroxide (Milk Of Magnesia) 2,400 mg PRN QHS PRN PO CONSTIPATION Last administered on 11/29/16 06:28; Start 11/14/16 at 19:45 Fluoxetine HCl (PROzac) 20 mg DAILY PO ; Start 11/15/16 at 09:00; Stop 11/15/16 at 09:00; Status DC Memantine (Namenda) 10 mg BID PO Last administered on 12/01/16 08:21; Start at 21:00 Aspirin (Aspirin Enteric Coated) 81 mg DAILY PO Last administered on 12/01/16 08:21; Start 11/15/16 at 09:00 Vitamin D (Vitamin D3) 1,000 unit DAILY PO Last administered on 12/01/16 08:20 ; Start 11/15/16 at 09:00 Vitamin D (Vitamin D3) 50,000 unit WEEKLY PO ; Start 11/21/16 at 09:00; Stop 11/21 at 09:00; Status DC Cyclosporine (Restasis) 1 drop BID OU Last administered on 12/01/16 19:24; Start 11/14/16 at 21:00 Estradiol (Estrace) 1 gail 3X/WEEK VG Last administered on 11/28/16 07:44; Start 11/16/16 at 09:00 Indapamide (Lozol) 1.25 mg DAILY PO Last administered on 11/24/16 08:59; Start 11/15/16 at 09:00; Stop 11/24/16 at 19:39; Status DC Levothyroxine Sodium (Synthroid) 100 mcg DAILY06 PO Last administered on 05:21; Start 11/15/16 at 06:00 Metformin HCl (Glucophage) 500 mg BIDWMEALS PO Last administered on 12/01/16 17:37; Start 11/15/16 at 08:00 Cyanocobalamin (Vitamin B-12) 500 mcg DAILY PO Last administered on 12/01/16 08:20; Start 11/15/16 at 09:00 Fish Oil (Fish Oil) 1,000 mg BID PO Last administered on 12/01/16 08:19; Start 11/14/16 at 21:00 Losartan Potassium (Cozaar) 100 mg DAILY PO Last administered on 11/24/16 08: 55; Start 11/15/16 at 09:00; Stop 11/24/16 at 19:39; Status DC Non-Formulary Medication 10 mg DAILY PO ; Start 11/15/16 at 09:00; Stop 11/15/16 at 09:00; Status DC Magnesium Oxide (Magnesium Oxide) 200 mg DAILY PO Last administered on 08:20; Start 11/15/16 at 09:00 Fluoxetine HCl (PROzac) 40 mg DAILY PO Last administered on 11/16/16 07:49; Start 11/15/16 at 09:00; Stop 11/17/16 at 19:20; Status DC Vitamin D (Vitamin D3) 50,000 unit Q2WKS PO ; Start 11/21/16 at 09:00 Pravastatin Sodium (Pravachol) 80 mg DAILY PO Last administered on 12/01/16 08 :33; Start 11/15/16 at 09:00 Coenzyme Q10 (Coenzyme Q10) 100 mg DAILY PO Last administered on 12/01/16 08: 19; Start 11/15/16 at 09:00 Acetaminophen (Tylenol) 650 mg PRN Q6HRS PRN PO PAIN / TEMP; Start 11/15/16 at 17:36 Clonidine HCl (Catapres Tts-2) 1 patch WEEKLY TD Last administered on 08:32; Start 11/17/16 at 09:00 Risperidone (RisperDAL) 0.25 mg HS SL ; Start 11/16/16 at 21:00; Stop 11/17/16 at 19:21; Status DC Risperidone (RisperDAL) 0.25 mg DAILY SL Last administered on 11/21/16 07:49; Start 11/18/16 at 09:00; Stop 11/21/16 at 18:31; Status DC Duloxetine HCl (Cymbalta) 30 mg DAILY PO Last administered on 11/20/16 08:09; Start 11/18/16 at 09:00; Stop 11/21/16 at 08:59; Status DC Duloxetine HCl (Cymbalta) 60 mg DAILY PO Last administered on 12/01/16 08:20; Start 11/21/16 at 09:00 Risperidone (RisperDAL) 0.5 mg DAILY SL Last administered on 11/22/16 08:41; Start 11/22/16 at 09:00; Stop 11/22/16 at 19:04; Status DC Risperidone (RisperDAL) 1 mg DAILY SL Last administered on 12/01/16 08:31; Start 11/23/16 at 09:00 Losartan Potassium (Cozaar) 50 mg DAILY PO Last administered on 12/01/16 08:21 ; Start 11/25/16 at 09:00 Lorazepam (Ativan) 0.25 mg PRN Q2HR PRN PO ANXIETY / AGITATION; Start 11/28/16 at 18:30 Active Scripts Active Reported Coq-10 (Ubidecarenone) 100 Mg Capsule 100 Mg PO DAILY Pravastatin Sodium 80 Mg Tablet 80 Mg PO DAILY Restasis (Cyclosporine) 1 Each Droperette 1 Drop OU BID Namenda (Memantine Hcl) 10 Mg Tablet 10 Mg PO BID Metformin Hcl 500 Mg Tablet 500 Mg PO BIDWMEALS Magnesium Oxide 250 Mg Tablet 250 Mg PO DAILY Lutein 10 Mg Tablet 10 Mg PO DAILY Levothyroxine Sodium 100 Mcg Tablet 100 Mcg PO DAILY06 [place] 3-6-9 1,200 mg Softgel (Fish Oil/Borage/Flax/Om3,6,9#1) 1,200 Mg Capsule 1 ,200 Mg PO BID Amoxicillin 500 Mg Capsule 500 Mg PO PRN DAILY PRN 4 Days [Coconut Oil] 1 Tsp PO BID Vitamin D3 (Cholecalciferol (Vitamin D3)) 50,000 Unit Capsule 50,000 Unit PO Q2WKS Vitamin D3 (Cholecalciferol (Vitamin D3)) 1,000 Unit Tablet 2,000 Unit PO DAILY Vitamin B-12 (Cyanocobalamin (Vitamin B-12)) 500 Mcg Tablet 500 Mcg PO DAILY Prozac (Fluoxetine Hcl) 20 Mg Capsule 40 Mg PO DAILY Irbesartan 300 Mg Tablet 300 Mg PO DAILY Indapamide 1.25 Mg Tablet 1.25 Mg PO DAILY Estrace (Estradiol) 42.5 Gm Cream.appl 1 Gm VG 3X/WEEK Aspir-Low (Aspirin) 81 Mg Tablet.dr 81 Mg PO DAILY Diagnosis: Problems: (1) Anxiety disorder (2) Psychotic depression (3) Major depressive disorder, recurrent episode (4) Psychosis, atypical (5) Mild cognitive disorder KARLEE GRIFFIN MD Dec 01, 2016 23:24
[2016-12-02] MEDS: LEVOTHYROXINE 100 MCG TABLET PO SCH (05:27)
[2016-12-02 05:42] VITALS: BP 114/71
[2016-12-02] MEDS: metFORMIN 500 MG TABLET PO SCH ×2 (08:09→17:31)
[2016-12-02] MEDS: cycloSPORINE 0.05% OPTH 1 DROP DROPERETTE OU SCH ×2 (08:10→19:40)
[2016-12-02] MEDS: ASPIRIN ENTERIC COATED 81 MG TABLET.DR. PO SCH (08:10)
[2016-12-02] MEDS: DULoxetine HCL 60 MG CAPSULE.DR PO SCH (08:11)
[2016-12-02] MEDS: MEMANTINE 10 MG TABLET. PO SCH ×2 (08:11→19:39)
[2016-12-02] MEDS: LOSARTAN 50 MG TABLET. PO SCH (08:11)
[2016-12-02] MEDS: PRAVASTATIN 20 MG TABLET. PO SCH (08:11)
[2016-12-02] MEDS: risperiDONE ORAL 1 MG/ML 30ml BOTTLE. SL SCH (08:13)
[2016-12-02] MEDS: UBIDECARENONE 50 MG CAPSULE. PO SCH (08:59)
[2016-12-02] MEDS: CHOLECALCIFEROL (VITAMIN D3) 1,000 UNIT TABLET PO SCH (09:00)
[2016-12-02] MEDS: CYANOCOBALAMIN (VITAMIN B-12) 250 MCG TABLET PO SCH (09:00)
[2016-12-02] MEDS: OMEGA-3 FATTY ACIDS/FISH OIL 1,000 MG CAPSULE. PO SCH ×2 (09:00→19:39)
[2016-12-02] MEDS: MAGNESIUM OXIDE 400 MG TABLET PO SCH (09:00)
[2016-12-02 16:18] VITALS: BP 149/65
--- NOTE | 2016-12-02 19:51 | PDOC ---
Exam Guzman Demential Exam: Guzman Note: Please also refer to the separate dictated note~for this date of service dictated separately.~Patient seen individually. Discussed the patient with Nursing staff reviewed the chart.~Reviewed interim history and current functioning. Reviewed vital signs,~Labs/ Radiology~and current medications noted below. Continue current treatment with the changes noted in the dictated addendum note Assessment: Vital Signs: Vital Signs Date Time Temp Pulse Resp B/P (MAP) Pulse Ox O2 Delivery O2 Flow Rate FiO2 12/02/16 16:18 99.7 82 18 149/65 (93) 96 Room Air I&O Intake and Output 12/02/16 07:00 Intake Total 1020 ml Balance 1020 ml Intake Oral 1020 ml Labs: Laboratory Tests Test 12/02/16 07:10 Glucose (Fingerstick) 96 mg/dL (70-99) Current Medications: Meds: Current Medications Acetaminophen (Tylenol) 650 mg PRN Q6HRS PRN PO PAIN / TEMP; Start 11/14/16 at 19:45; Stop 11/15/16 at 17:36; Status DC Multi-Ingredient Ointment (Analgesic [place]) 1 gail PRN QID PRN TP MUSCLE PAIN; Start 11/14/16 at 19:45 Al Hydroxide/Mg Hydroxide (Mylanta Plus Xs) 15 ml PRN AFTMEALHC PRN PO DYSPEPSIA; Start 11/14/16 at 19:45 Magnesium Hydroxide (Milk Of Magnesia) 2,400 mg PRN QHS PRN PO CONSTIPATION Last administered on 11/29/16 06:28; Start 11/14/16 at 19:45 Fluoxetine HCl (PROzac) 20 mg DAILY PO ; Start 11/15/16 at 09:00; Stop 11/15/16 at 09:00; Status DC Memantine (Namenda) 10 mg BID PO Last administered on 12/02/16 19:39; Start at 21:00 Aspirin (Aspirin Enteric Coated) 81 mg DAILY PO Last administered on 12/02/16 08:10; Start 11/15/16 at 09:00 Vitamin D (Vitamin D3) 1,000 unit DAILY PO Last administered on 12/01/16 08:20 ; Start 11/15/16 at 09:00 Vitamin D (Vitamin D3) 50,000 unit WEEKLY PO ; Start 11/21/16 at 09:00; Stop 11/21 at 09:00; Status DC Cyclosporine (Restasis) 1 drop BID OU Last administered on 12/02/16 19:40; Start 11/14/16 at 21:00 Estradiol (Estrace) 1 gail 3X/WEEK VG Last administered on 11/28/16 07:44; Start 11/16/16 at 09:00 Indapamide (Lozol) 1.25 mg DAILY PO Last administered on 11/24/16 08:59; Start 11/15/16 at 09:00; Stop 11/24/16 at 19:39; Status DC Levothyroxine Sodium (Synthroid) 100 mcg DAILY06 PO Last administered on 05:27; Start 11/15/16 at 06:00 Metformin HCl (Glucophage) 500 mg BIDWMEALS PO Last administered on 12/02/16 17:31; Start 11/15/16 at 08:00 Cyanocobalamin (Vitamin B-12) 500 mcg DAILY PO Last administered on 12/01/16 08:20; Start 11/15/16 at 09:00 Fish Oil (Fish Oil) 1,000 mg BID PO Last administered on 12/02/16 19:39; Start 11/14/16 at 21:00 Losartan Potassium (Cozaar) 100 mg DAILY PO Last administered on 11/24/16 08: 55; Start 11/15/16 at 09:00; Stop 11/24/16 at 19:39; Status DC Non-Formulary Medication 10 mg DAILY PO ; Start 11/15/16 at 09:00; Stop 11/15/16 at 09:00; Status DC Magnesium Oxide (Magnesium Oxide) 200 mg DAILY PO Last administered on 08:20; Start 11/15/16 at 09:00 Fluoxetine HCl (PROzac) 40 mg DAILY PO Last administered on 11/16/16 07:49; Start 11/15/16 at 09:00; Stop 11/17/16 at 19:20; Status DC Vitamin D (Vitamin D3) 50,000 unit Q2WKS PO ; Start 11/21/16 at 09:00 Pravastatin Sodium (Pravachol) 80 mg DAILY PO Last administered on 12/02/16 08 :11; Start 11/15/16 at 09:00 Coenzyme Q10 (Coenzyme Q10) 100 mg DAILY PO Last administered on 12/01/16 08: 19; Start 11/15/16 at 09:00 Acetaminophen (Tylenol) 650 mg PRN Q6HRS PRN PO PAIN / TEMP; Start 11/15/16 at 17:36 Clonidine HCl (Catapres Tts-2) 1 patch WEEKLY TD Last administered on 08:32; Start 11/17/16 at 09:00 Risperidone (RisperDAL) 0.25 mg HS SL ; Start 11/16/16 at 21:00; Stop 11/17/16 at 19:21; Status DC Risperidone (RisperDAL) 0.25 mg DAILY SL Last administered on 11/21/16 07:49; Start 11/18/16 at 09:00; Stop 11/21/16 at 18:31; Status DC Duloxetine HCl (Cymbalta) 30 mg DAILY PO Last administered on 11/20/16 08:09; Start 11/18/16 at 09:00; Stop 11/21/16 at 08:59; Status DC Duloxetine HCl (Cymbalta) 60 mg DAILY PO Last administered on 12/02/16 08:11; Start 11/21/16 at 09:00 Risperidone (RisperDAL) 0.5 mg DAILY SL Last administered on 11/22/16 08:41; Start 11/22/16 at 09:00; Stop 11/22/16 at 19:04; Status DC Risperidone (RisperDAL) 1 mg DAILY SL Last administered on 12/02/16 08:13; Start 11/23/16 at 09:00 Losartan Potassium (Cozaar) 50 mg DAILY PO Last administered on 12/02/16 08:11 ; Start 11/25/16 at 09:00 Lorazepam (Ativan) 0.25 mg PRN Q2HR PRN PO ANXIETY / AGITATION; Start 11/28/16 at 18:30 Active Scripts Active Reported Coq-10 (Ubidecarenone) 100 Mg Capsule 100 Mg PO DAILY Pravastatin Sodium 80 Mg Tablet 80 Mg PO DAILY Restasis (Cyclosporine) 1 Each Droperette 1 Drop OU BID Namenda (Memantine Hcl) 10 Mg Tablet 10 Mg PO BID Metformin Hcl 500 Mg Tablet 500 Mg PO BIDWMEALS Magnesium Oxide 250 Mg Tablet 250 Mg PO DAILY Lutein 10 Mg Tablet 10 Mg PO DAILY Levothyroxine Sodium 100 Mcg Tablet 100 Mcg PO DAILY06 [place] 3-6-9 1,200 mg Softgel (Fish Oil/Borage/Flax/Om3,6,9#1) 1,200 Mg Capsule 1 ,200 Mg PO BID Amoxicillin 500 Mg Capsule 500 Mg PO PRN DAILY PRN 4 Days [Coconut Oil] 1 Tsp PO BID Vitamin D3 (Cholecalciferol (Vitamin D3)) 50,000 Unit Capsule 50,000 Unit PO Q2WKS Vitamin D3 (Cholecalciferol (Vitamin D3)) 1,000 Unit Tablet 2,000 Unit PO DAILY Vitamin B-12 (Cyanocobalamin (Vitamin B-12)) 500 Mcg Tablet 500 Mcg PO DAILY Prozac (Fluoxetine Hcl) 20 Mg Capsule 40 Mg PO DAILY Irbesartan 300 Mg Tablet 300 Mg PO DAILY Indapamide 1.25 Mg Tablet 1.25 Mg PO DAILY Estrace (Estradiol) 42.5 Gm Cream.appl 1 Gm VG 3X/WEEK Aspir-Low (Aspirin) 81 Mg Tablet.dr 81 Mg PO DAILY Diagnosis: Problems: (1) Anxiety disorder (2) Psychotic depression (3) Major depressive disorder, recurrent episode (4) Psychosis, atypical (5) Mild cognitive disorder KARLEE GRIFFIN MD Dec 02, 2016 19:51
--- NOTE | 2016-12-02 23:44 | PN ---
DATE: 12/01/2016 PSYCHIATRIC PROGRESS NOTE This late entry at 12/01/2016 covers elements not covered in my initial note of 12/01/2016. SUBJECTIVE: I met with the patient evening of 12/01/2016. Per nursing report, the previous evening, the patient appeared catatonic and nursing described this as "acted", refused to take any medications. During the day, she refused most of her meds, but has had no episodes of being limp. She stayed up in day room most of the day, refused EEG. No CV, , pulmonary, eye, ENT system symptoms on review. MENTAL STATUS EXAM: Reasonably oriented. Speech is coherent, abstraction fair, computation impaired, language function intact. Attention span short. Speech coherent. Thought processes goal directed. As I met with her, she was somewhat animated, appropriate, getting along very well with her roommate. LABORATORY DATA: Reviewed. IMPRESSION: Unchanged. PLAN: Continue psychotropics, reviewed drug interactions. Risk, benefit ratio favors continuing Cymbalta 60 mg a day, Risperdal 1 mg daily, Namenda 10 b.i.d., Ativan p.r.n. KARLEE GRIFFIN MD DR: VENKAT/heron JOB#: [id number] / [id number]
[2016-12-03] MEDS: LEVOTHYROXINE 100 MCG TABLET PO SCH (05:57)
[2016-12-03 06:09] VITALS: BP 157/82
[2016-12-03] MEDS: DULoxetine HCL 60 MG CAPSULE.DR PO SCH (08:13)
[2016-12-03] MEDS: MAGNESIUM OXIDE 400 MG TABLET PO SCH (08:13)
[2016-12-03] MEDS: LOSARTAN 50 MG TABLET. PO SCH (08:13)
[2016-12-03] MEDS: PRAVASTATIN 20 MG TABLET. PO SCH (08:13)
[2016-12-03] MEDS: ASPIRIN ENTERIC COATED 81 MG TABLET.DR. PO SCH (08:14)
[2016-12-03] MEDS: CYANOCOBALAMIN (VITAMIN B-12) 250 MCG TABLET PO SCH (08:14)
[2016-12-03] MEDS: metFORMIN 500 MG TABLET PO SCH ×2 (08:15→17:17)
[2016-12-03] MEDS: OMEGA-3 FATTY ACIDS/FISH OIL 1,000 MG CAPSULE. PO SCH ×2 (08:15→19:17)
[2016-12-03] MEDS: CHOLECALCIFEROL (VITAMIN D3) 1,000 UNIT TABLET PO SCH (08:15)
[2016-12-03] MEDS: MEMANTINE 10 MG TABLET. PO SCH ×2 (08:15→19:17)
[2016-12-03] MEDS: cycloSPORINE 0.05% OPTH 1 DROP DROPERETTE OU SCH ×2 (08:22→19:17)
[2016-12-03] MEDS: UBIDECARENONE 50 MG CAPSULE. PO SCH (08:22)
[2016-12-03] MEDS: risperiDONE ORAL 1 MG/ML 30ml BOTTLE. SL SCH (08:23)
[2016-12-03] MEDS: ESTRADIOL 0.01% VAGINAL CREAM 42.5GM TUBE. VG SCH (09:00)
[2016-12-03 16:04] VITALS: BP 133/57
--- NOTE | 2016-12-03 19:49 | PDOC ---
Exam Guzman Demential Exam: Guzman Note: Please also refer to the separate dictated note~for this date of service dictated separately.~Patient seen individually. Discussed the patient with Nursing staff reviewed the chart.~Reviewed interim history and current functioning. Reviewed vital signs,~Labs/ Radiology~and current medications noted below. Continue current treatment with the changes noted in the dictated addendum note Assessment: Vital Signs: Vital Signs Date Time Temp Pulse Resp B/P (MAP) Pulse Ox O2 Delivery O2 Flow Rate FiO2 12/03/16 16:04 97.9 70 16 133/57 (82) 97 12/02/16 16:18 Room Air I&O Intake and Output 12/03/16 06:59 Intake Total 1320 ml Balance 1320 ml Intake Oral 1320 ml Labs: Laboratory Tests Test 12/03/16 07:53 Glucose (Fingerstick) 94 mg/dL (70-99) Current Medications: Meds: Current Medications Acetaminophen (Tylenol) 650 mg PRN Q6HRS PRN PO PAIN / TEMP; Start 11/14/16 at 19:45; Stop 11/15/16 at 17:36; Status DC Multi-Ingredient Ointment (Analgesic [place]) 1 gail PRN QID PRN TP MUSCLE PAIN; Start 11/14/16 at 19:45 Al Hydroxide/Mg Hydroxide (Mylanta Plus Xs) 15 ml PRN AFTMEALHC PRN PO DYSPEPSIA; Start 11/14/16 at 19:45 Magnesium Hydroxide (Milk Of Magnesia) 2,400 mg PRN QHS PRN PO CONSTIPATION Last administered on 11/29/16 06:28; Start 11/14/16 at 19:45 Fluoxetine HCl (PROzac) 20 mg DAILY PO ; Start 11/15/16 at 09:00; Stop 11/15/16 at 09:00; Status DC Memantine (Namenda) 10 mg BID PO Last administered on 12/03/16 19:17; Start at 21:00 Aspirin (Aspirin Enteric Coated) 81 mg DAILY PO Last administered on 12/03/16 08:14; Start 11/15/16 at 09:00 Vitamin D (Vitamin D3) 1,000 unit DAILY PO Last administered on 12/03/16 08:15 ; Start 11/15/16 at 09:00 Vitamin D (Vitamin D3) 50,000 unit WEEKLY PO ; Start 11/21/16 at 09:00; Stop 11/21 at 09:00; Status DC Cyclosporine (Restasis) 1 drop BID OU Last administered on 12/03/16 19:17; Start 11/14/16 at 21:00 Estradiol (Estrace) 1 gail 3X/WEEK VG Last administered on 11/28/16 07:44; Start 11/16/16 at 09:00 Indapamide (Lozol) 1.25 mg DAILY PO Last administered on 11/24/16 08:59; Start 11/15/16 at 09:00; Stop 11/24/16 at 19:39; Status DC Levothyroxine Sodium (Synthroid) 100 mcg DAILY06 PO Last administered on 05:57; Start 11/15/16 at 06:00 Metformin HCl (Glucophage) 500 mg BIDWMEALS PO Last administered on 12/03/16 17:17; Start 11/15/16 at 08:00 Cyanocobalamin (Vitamin B-12) 500 mcg DAILY PO Last administered on 12/03/16 08:14; Start 11/15/16 at 09:00 Fish Oil (Fish Oil) 1,000 mg BID PO Last administered on 12/03/16 19:17; Start 11/14/16 at 21:00 Losartan Potassium (Cozaar) 100 mg DAILY PO Last administered on 11/24/16 08: 55; Start 11/15/16 at 09:00; Stop 11/24/16 at 19:39; Status DC Non-Formulary Medication 10 mg DAILY PO ; Start 11/15/16 at 09:00; Stop 11/15/16 at 09:00; Status DC Magnesium Oxide (Magnesium Oxide) 200 mg DAILY PO Last administered on 08:13; Start 11/15/16 at 09:00 Fluoxetine HCl (PROzac) 40 mg DAILY PO Last administered on 11/16/16 07:49; Start 11/15/16 at 09:00; Stop 11/17/16 at 19:20; Status DC Vitamin D (Vitamin D3) 50,000 unit Q2WKS PO ; Start 11/21/16 at 09:00 Pravastatin Sodium (Pravachol) 80 mg DAILY PO Last administered on 12/03/16 08 :13; Start 11/15/16 at 09:00 Coenzyme Q10 (Coenzyme Q10) 100 mg DAILY PO Last administered on 12/03/16 08: 22; Start 11/15/16 at 09:00 Acetaminophen (Tylenol) 650 mg PRN Q6HRS PRN PO PAIN / TEMP; Start 11/15/16 at 17:36 Clonidine HCl (Catapres Tts-2) 1 patch WEEKLY TD Last administered on 08:32; Start 11/17/16 at 09:00 Risperidone (RisperDAL) 0.25 mg HS SL ; Start 11/16/16 at 21:00; Stop 11/17/16 at 19:21; Status DC Risperidone (RisperDAL) 0.25 mg DAILY SL Last administered on 11/21/16 07:49; Start 11/18/16 at 09:00; Stop 11/21/16 at 18:31; Status DC Duloxetine HCl (Cymbalta) 30 mg DAILY PO Last administered on 11/20/16 08:09; Start 11/18/16 at 09:00; Stop 11/21/16 at 08:59; Status DC Duloxetine HCl (Cymbalta) 60 mg DAILY PO Last administered on 12/03/16 08:13; Start 11/21/16 at 09:00 Risperidone (RisperDAL) 0.5 mg DAILY SL Last administered on 11/22/16 08:41; Start 11/22/16 at 09:00; Stop 11/22/16 at 19:04; Status DC Risperidone (RisperDAL) 1 mg DAILY SL Last administered on 12/03/16 08:23; Start 11/23/16 at 09:00 Losartan Potassium (Cozaar) 50 mg DAILY PO Last administered on 12/03/16 08:13 ; Start 11/25/16 at 09:00 Lorazepam (Ativan) 0.25 mg PRN Q2HR PRN PO ANXIETY / AGITATION; Start 11/28/16 at 18:30 Active Scripts Active Reported Coq-10 (Ubidecarenone) 100 Mg Capsule 100 Mg PO DAILY Pravastatin Sodium 80 Mg Tablet 80 Mg PO DAILY Restasis (Cyclosporine) 1 Each Droperette 1 Drop OU BID Namenda (Memantine Hcl) 10 Mg Tablet 10 Mg PO BID Metformin Hcl 500 Mg Tablet 500 Mg PO BIDWMEALS Magnesium Oxide 250 Mg Tablet 250 Mg PO DAILY Lutein 10 Mg Tablet 10 Mg PO DAILY Levothyroxine Sodium 100 Mcg Tablet 100 Mcg PO DAILY06 [place] 3-6-9 1,200 mg Softgel (Fish Oil/Borage/Flax/Om3,6,9#1) 1,200 Mg Capsule 1 ,200 Mg PO BID Amoxicillin 500 Mg Capsule 500 Mg PO PRN DAILY PRN 4 Days [Coconut Oil] 1 Tsp PO BID Vitamin D3 (Cholecalciferol (Vitamin D3)) 50,000 Unit Capsule 50,000 Unit PO Q2WKS Vitamin D3 (Cholecalciferol (Vitamin D3)) 1,000 Unit Tablet 2,000 Unit PO DAILY Vitamin B-12 (Cyanocobalamin (Vitamin B-12)) 500 Mcg Tablet 500 Mcg PO DAILY Prozac (Fluoxetine Hcl) 20 Mg Capsule 40 Mg PO DAILY Irbesartan 300 Mg Tablet 300 Mg PO DAILY Indapamide 1.25 Mg Tablet 1.25 Mg PO DAILY Estrace (Estradiol) 42.5 Gm Cream.appl 1 Gm VG 3X/WEEK Aspir-Low (Aspirin) 81 Mg Tablet. 81 Mg PO DAILY Diagnosis: Problems: (1) Anxiety disorder (2) Psychotic depression (3) Major depressive disorder, recurrent episode (4) Psychosis, atypical KARLEE GRIFFIN MD Dec 03, 2016 19:49
--- NOTE | 2016-12-04 00:20 | PN ---
DATE: 12/02/2016 This is a late entry for 12/02/2016 and covers elements not covered in my initial note of 12/02/2016. SUBJECTIVE: The patient was seen individually evening of 12/02/2016. She has been refusing her medications all day on 12/02/2016 except Glucophage. She has not had the spells of getting limp and nonresponsive, but as I met with her individually, she said she has not had a good day, has been feeling "different" REVIEW OF SYSTEMS: No CV, , pulmonary, eye, ENT system symptoms on review. Reliability fair. MENTAL STATUS EXAM: Oriented reasonably. Speech is coherent, abstraction fair, computation impaired, attention span short, language function intact. Mood and affect somewhat withdrawn. LABORATORY DATA: Reviewed. IMPRESSION: Unchanged from initial note. PLAN: I have discussed at some length with the patient, encouraging compliance with her psychotropics. Reviewed drug interactions, risk/benefit ratio favors no further change as of now. KARLEE GRIFFIN MD DR: VENKAT/herno JOB#: [id number] / [id number]
[2016-12-04] MEDS: LEVOTHYROXINE 100 MCG TABLET PO SCH (05:44)
[2016-12-04 05:53] VITALS: BP 110/64
[2016-12-04 06:48] LABS: BASO # 0.1 x10^3/uL (0.0-0.2); BASO % 1 % (0-3); EOS # 0.2 x10^3/uL (0.0-0.7); EOS % 3 % (0-3); HEMATOCRIT 31.2 % (36.0-47.0); HEMOGLOBIN 10.1 g/dL (12.0-15.5); LYMPH # 1.7 x10^3/uL (1.0-4.8); LYMPH % 29 % (24-48); MEAN CORPUSCULAR HEMOGLOBIN 28 pg (25-35); MEAN CORPUSCULAR HGB CONC 32 g/dL (31-37); MEAN CORPUSCULAR VOLUME 86 fL (79-100); MONO # 0.5 x10^3/uL (0.0-1.1); MONO % 9 % (0-9); NEUT # 3.3 x10^3uL (1.8-7.7); NEUT % 58 % (31-73); PLATELET COUNT 161 x10^3/uL (140-400); RED BLOOD COUNT 3.64 x10^6/uL (3.50-5.40); RED CELL DISTRIBUTION WIDTH 14.3 % (11.5-14.5); WHITE BLOOD COUNT 5.7 x10^3/uL (4.0-11.0)
[2016-12-04 06:53] LABS: ALBUMIN 2.8 g/dL (3.4-5.0); ALBUMIN/GLOBULIN RATIO 0.9 (1.0-1.7); CALCIUM 8.5 mg/dL (8.5-10.1); CREATININE 0.7 mg/dL (0.6-1.0); GFR 80.1; POTASSIUM 4.1 mmol/L (3.5-5.1); TOTAL BILIRUBIN 0.2 mg/dL (0.2-1.0); TOTAL PROTEIN 5.8 g/dL (6.4-8.2)
[2016-12-04] MEDS: LOSARTAN 50 MG TABLET. PO SCH (08:20)
[2016-12-04] MEDS: metFORMIN 500 MG TABLET PO SCH ×2 (08:20→17:15)
[2016-12-04] MEDS: MEMANTINE 10 MG TABLET. PO SCH ×2 (08:20→19:30)
[2016-12-04] MEDS: CYANOCOBALAMIN (VITAMIN B-12) 250 MCG TABLET PO SCH (08:20)
[2016-12-04] MEDS: ASPIRIN ENTERIC COATED 81 MG TABLET.DR. PO SCH (08:20)
[2016-12-04] MEDS: OMEGA-3 FATTY ACIDS/FISH OIL 1,000 MG CAPSULE. PO SCH ×2 (08:20→19:30)
[2016-12-04] MEDS: DULoxetine HCL 60 MG CAPSULE.DR PO SCH (08:20)
[2016-12-04] MEDS: CHOLECALCIFEROL (VITAMIN D3) 1,000 UNIT TABLET PO SCH (08:21)
[2016-12-04] MEDS: MAGNESIUM OXIDE 400 MG TABLET PO SCH (08:21)
[2016-12-04] MEDS: PRAVASTATIN 20 MG TABLET. PO SCH (08:21)
[2016-12-04] MEDS: UBIDECARENONE 50 MG CAPSULE. PO SCH (08:23)
[2016-12-04] MEDS: cycloSPORINE 0.05% OPTH 1 DROP DROPERETTE OU SCH ×2 (08:23→19:30)
[2016-12-04] MEDS: risperiDONE ORAL 1 MG/ML 30ml BOTTLE. SL SCH (08:23)
[2016-12-04 16:06] VITALS: BP 107/58
--- NOTE | 2016-12-04 18:46 | PDOC ---
Exam Guzman Demential Exam: Guzman Note: Please also refer to the separate dictated note~for this date of service dictated separately.~Patient seen individually. Discussed the patient with Nursing staff reviewed the chart.~Reviewed interim history and current functioning. Reviewed vital signs,~Labs/ Radiology~and current medications noted below. Continue current treatment with the changes noted in the dictated addendum note Assessment: Vital Signs: Vital Signs Date Time Temp Pulse Resp B/P (MAP) Pulse Ox O2 Delivery O2 Flow Rate FiO2 12/04/16 16:06 97.8 75 20 107/58 (74) 99 12/04/16 05:53 Room Air I&O Intake and Output 12/04/16 07:00 Intake Total 1200 ml Balance 1200 ml Intake Oral 1200 ml Labs: Laboratory Tests Test 12/04/16 06:10 12/04/16 07:13 White Blood Count 5.7 x10^3/uL (4.0-11.0) Red Blood Count 3.64 x10^6/uL (3.50-5.40) Hemoglobin 10.1 g/dL (12.0-15.5) L Hematocrit 31.2 % (36.0-47.0) L Mean Corpuscular Volume 86 fL (79-100) Mean Corpuscular Hemoglobin 28 pg (25-35) Mean Corpuscular Hemoglobin Concent 32 g/dL (31-37) Red Cell Distribution Width 14.3 % (11.5-14.5) Platelet Count 161 x10^3/uL (140-400) Neutrophils (%) (Auto) 58 % (31-73) Lymphocytes (%) (Auto) 29 % (24-48) Monocytes (%) (Auto) 9 % (0-9) Eosinophils (%) (Auto) 3 % (0-3) Basophils (%) (Auto) 1 % (0-3) Neutrophils # (Auto) 3.3 x10^3uL (1.8-7.7) Lymphocytes # (Auto) 1.7 x10^3/uL (1.0-4.8) Monocytes # (Auto) 0.5 x10^3/uL (0.0-1.1) Eosinophils # (Auto) 0.2 x10^3/uL (0.0-0.7) Basophils # (Auto) 0.1 x10^3/uL (0.0-0.2) Sodium Level 143 mmol/L (136-145) Potassium Level 4.1 mmol/L (3.5-5.1) Chloride Level 106 mmol/L (98-107) Carbon Dioxide Level 34 mmol/L (21-32) H Anion Gap 3 (6-14) L Blood Urea Nitrogen 17 mg/dL (7-20) Creatinine 0.7 mg/dL (0.6-1.0) Estimated GFR (Cockcroft-Gault) 80.1 BUN/Creatinine Ratio 24 (6-20) H Glucose Level 91 mg/dL (70-99) Calcium Level 8.5 mg/dL (8.5-10.1) Total Bilirubin 0.2 mg/dL (0.2-1.0) Aspartate Amino Transferase (AST) 26 U/L (15-37) Alanine Aminotransferase (ALT) 58 U/L (14-59) Alkaline Phosphatase 74 U/L (46-116) Total Protein 5.8 g/dL (6.4-8.2) L Albumin 2.8 g/dL (3.4-5.0) L Albumin/Globulin Ratio 0.9 (1.0-1.7) L Glucose (Fingerstick) 90 mg/dL (70-99) Current Medications: Meds: Current Medications Acetaminophen (Tylenol) 650 mg PRN Q6HRS PRN PO PAIN / TEMP; Start 11/14/16 at 19:45; Stop 11/15/16 at 17:36; Status DC Multi-Ingredient Ointment (Analgesic [place]) 1 gail PRN QID PRN TP MUSCLE PAIN; Start 11/14/16 at 19:45 Al Hydroxide/Mg Hydroxide (Mylanta Plus Xs) 15 ml PRN AFTMEALHC PRN PO DYSPEPSIA; Start 11/14/16 at 19:45 Magnesium Hydroxide (Milk Of Magnesia) 2,400 mg PRN QHS PRN PO CONSTIPATION Last administered on 11/29/16 06:28; Start 11/14/16 at 19:45 Fluoxetine HCl (PROzac) 20 mg DAILY PO ; Start 11/15/16 at 09:00; Stop 11/15/16 at 09:00; Status DC Memantine (Namenda) 10 mg BID PO Last administered on 12/04/16 08:20; Start at 21:00 Aspirin (Aspirin Enteric Coated) 81 mg DAILY PO Last administered on 12/04/16 08:20; Start 11/15/16 at 09:00 Vitamin D (Vitamin D3) 1,000 unit DAILY PO Last administered on 12/04/16 08:21 ; Start 11/15/16 at 09:00 Vitamin D (Vitamin D3) 50,000 unit WEEKLY PO ; Start 11/21/16 at 09:00; Stop 11/21 at 09:00; Status DC Cyclosporine (Restasis) 1 drop BID OU Last administered on 12/04/16 08:23; Start 11/14/16 at 21:00 Estradiol (Estrace) 1 gail 3X/WEEK VG Last administered on 11/28/16 07:44; Start 11/16/16 at 09:00 Indapamide (Lozol) 1.25 mg DAILY PO Last administered on 11/24/16 08:59; Start 11/15/16 at 09:00; Stop 11/24/16 at 19:39; Status DC Levothyroxine Sodium (Synthroid) 100 mcg DAILY06 PO Last administered on 05:44; Start 11/15/16 at 06:00 Metformin HCl (Glucophage) 500 mg BIDWMEALS PO Last administered on 12/04/16 17:15; Start 11/15/16 at 08:00 Cyanocobalamin (Vitamin B-12) 500 mcg DAILY PO Last administered on 12/04/16 08:20; Start 11/15/16 at 09:00 Fish Oil (Fish Oil) 1,000 mg BID PO Last administered on 12/04/16 08:20; Start 11/14/16 at 21:00 Losartan Potassium (Cozaar) 100 mg DAILY PO Last administered on 11/24/16 08: 55; Start 11/15/16 at 09:00; Stop 11/24/16 at 19:39; Status DC Non-Formulary Medication 10 mg DAILY PO ; Start 11/15/16 at 09:00; Stop 11/15/16 at 09:00; Status DC Magnesium Oxide (Magnesium Oxide) 200 mg DAILY PO Last administered on 08:21; Start 11/15/16 at 09:00 Fluoxetine HCl (PROzac) 40 mg DAILY PO Last administered on 11/16/16 07:49; Start 11/15/16 at 09:00; Stop 11/17/16 at 19:20; Status DC Vitamin D (Vitamin D3) 50,000 unit Q2WKS PO ; Start 11/21/16 at 09:00 Pravastatin Sodium (Pravachol) 80 mg DAILY PO Last administered on 12/04/16 08 :21; Start 11/15/16 at 09:00 Coenzyme Q10 (Coenzyme Q10) 100 mg DAILY PO Last administered on 12/04/16 08: 23; Start 11/15/16 at 09:00 Acetaminophen (Tylenol) 650 mg PRN Q6HRS PRN PO PAIN / TEMP; Start 11/15/16 at 17:36 Clonidine HCl (Catapres Tts-2) 1 patch WEEKLY TD Last administered on 08:32; Start 11/17/16 at 09:00 Risperidone (RisperDAL) 0.25 mg HS SL ; Start 11/16/16 at 21:00; Stop 11/17/16 at 19:21; Status DC Risperidone (RisperDAL) 0.25 mg DAILY SL Last administered on 11/21/16 07:49; Start 11/18/16 at 09:00; Stop 11/21/16 at 18:31; Status DC Duloxetine HCl (Cymbalta) 30 mg DAILY PO Last administered on 11/20/16 08:09; Start 11/18/16 at 09:00; Stop 11/21/16 at 08:59; Status DC Duloxetine HCl (Cymbalta) 60 mg DAILY PO Last administered on 12/04/16 08:20; Start 11/21/16 at 09:00 Risperidone (RisperDAL) 0.5 mg DAILY SL Last administered on 11/22/16 08:41; Start 11/22/16 at 09:00; Stop 11/22/16 at 19:04; Status DC Risperidone (RisperDAL) 1 mg DAILY SL Last administered on 12/04/16 08:23; Start 11/23/16 at 09:00 Losartan Potassium (Cozaar) 50 mg DAILY PO Last administered on 12/04/16 08:20 ; Start 11/25/16 at 09:00 Lorazepam (Ativan) 0.25 mg PRN Q2HR PRN PO ANXIETY / AGITATION; Start 11/28/16 at 18:30 Active Scripts Active Reported Coq-10 (Ubidecarenone) 100 Mg Capsule 100 Mg PO DAILY Pravastatin Sodium 80 Mg Tablet 80 Mg PO DAILY Restasis (Cyclosporine) 1 Each Droperette 1 Drop OU BID Namenda (Memantine Hcl) 10 Mg Tablet 10 Mg PO BID Metformin Hcl 500 Mg Tablet 500 Mg PO BIDWMEALS Magnesium Oxide 250 Mg Tablet 250 Mg PO DAILY Lutein 10 Mg Tablet 10 Mg PO DAILY Levothyroxine Sodium 100 Mcg Tablet 100 Mcg PO DAILY06 [place] 3-6-9 1,200 mg Softgel (Fish Oil/Borage/Flax/Om3,6,9#1) 1,200 Mg Capsule 1 ,200 Mg PO BID Amoxicillin 500 Mg Capsule 500 Mg PO PRN DAILY PRN 4 Days [Coconut Oil] 1 Tsp PO BID Vitamin D3 (Cholecalciferol (Vitamin D3)) 50,000 Unit Capsule 50,000 Unit PO Q2WKS Vitamin D3 (Cholecalciferol (Vitamin D3)) 1,000 Unit Tablet 2,000 Unit PO DAILY Vitamin B-12 (Cyanocobalamin (Vitamin B-12)) 500 Mcg Tablet 500 Mcg PO DAILY Prozac (Fluoxetine Hcl) 20 Mg Capsule 40 Mg PO DAILY Irbesartan 300 Mg Tablet 300 Mg PO DAILY Indapamide 1.25 Mg Tablet 1.25 Mg PO DAILY Estrace (Estradiol) 42.5 Gm Cream.appl 1 Gm VG 3X/WEEK Aspir-Low (Aspirin) 81 Mg Tablet. 81 Mg PO DAILY Diagnosis: Problems: (1) Mild cognitive disorder (2) Psychosis, atypical (3) Major depressive disorder, recurrent episode (4) Psychotic depression (5) Anxiety disorder KARLEE GRIFFIN MD Dec 04, 2016 18:46
[2016-12-05 06:23] VITALS: BP 119/71
[2016-12-05] MEDS: LEVOTHYROXINE 100 MCG TABLET PO SCH (06:31)
--- NOTE | 2016-12-05 08:14 | PN ---
DATE: 12/03/2016 This late entry 12/03/2016 covers elements not covered in my initial note of 12/03/2016. I met with the patient in the evening of 12/03/2016. Per nursing report, patient is quite paranoid the previous evening, felt she is not getting all the various groups as the other patient were getting with specifically suspicious of one of the other patients on the unit. During the day 12/03/2016, she is cooperative with medications, more in the day room, went to dinner in her wheelchair. The left leg is swollen. She has a JOVITA hose. REVIEW OF SYSTEMS: Ambulation impaired, left leg swollen. No CV, , pulmonary, eye, ENT system symptoms on review. MENTAL STATUS EXAM: Oriented to herself and situation. Speech is coherent, has some latency. Abstraction fair, computation impaired, language function intact, attention span short. Mood and affect still somewhat depressed, but showing improvement. LABORATORY DATA: Reviewed. IMPRESSION: Unchanged from initial note. PLAN: Continue Namenda, Risperdal, Cymbalta along with Ativan p.r.n. Adjust further as clinically indicated. KARLEE GRIFFIN MD DR: VENKAT/heron JOB#: [id number] / [id number]
[2016-12-05] MEDS: cycloSPORINE 0.05% OPTH 1 DROP DROPERETTE OU SCH ×2 (09:05→20:10)
[2016-12-05] MEDS: CYANOCOBALAMIN (VITAMIN B-12) 250 MCG TABLET PO SCH (09:06)
[2016-12-05] MEDS: OMEGA-3 FATTY ACIDS/FISH OIL 1,000 MG CAPSULE. PO SCH ×2 (09:06→20:10)
[2016-12-05] MEDS: ASPIRIN ENTERIC COATED 81 MG TABLET.DR. PO SCH (09:07)
[2016-12-05] MEDS: UBIDECARENONE 50 MG CAPSULE. PO SCH (09:07)
[2016-12-05] MEDS: LOSARTAN 50 MG TABLET. PO SCH (09:07)
[2016-12-05] MEDS: PRAVASTATIN 20 MG TABLET. PO SCH (09:07)
[2016-12-05] MEDS: DULoxetine HCL 60 MG CAPSULE.DR PO SCH (09:07)
[2016-12-05] MEDS: metFORMIN 500 MG TABLET PO SCH ×2 (09:07→17:27)
[2016-12-05] MEDS: CHOLECALCIFEROL (VITAMIN D3) 1,000 UNIT TABLET PO SCH (09:07)
[2016-12-05] MEDS: MAGNESIUM OXIDE 400 MG TABLET PO SCH (09:08)
[2016-12-05] MEDS: MEMANTINE 10 MG TABLET. PO SCH ×2 (09:08→20:10)
[2016-12-05] MEDS: CHOLECALCIFEROL (VITAMIN D3) 50,000 UNIT CAPSULE PO SCH (09:10)
[2016-12-05] MEDS: risperiDONE ORAL 1 MG/ML 30ml BOTTLE. SL SCH (09:10)
[2016-12-05] MEDS: ESTRADIOL 0.01% VAGINAL CREAM 42.5GM TUBE. VG SCH (09:10)
[2016-12-05 16:27] VITALS: BP 95/55
--- NOTE | 2016-12-05 18:31 | PDOC ---
Exam Guzman Demential Exam: Guzman Note: Please also refer to the separate dictated note~for this date of service dictated separately.~Patient seen individually. Discussed the patient with Nursing staff reviewed the chart.~Reviewed interim history and current functioning. Reviewed vital signs,~Labs/ Radiology~and current medications noted below. Continue current treatment with the changes noted in the dictated addendum note Assessment: Vital Signs: Vital Signs Date Time Temp Pulse Resp B/P (MAP) Pulse Ox O2 Delivery O2 Flow Rate FiO2 12/05/16 16:27 97.4 75 18 95/55 (68) 99 12/04/16 05:53 Room Air I&O Intake and Output 12/05/16 07:00 Intake Total 1140 ml Balance 1140 ml Intake Oral 1140 ml Labs: Laboratory Tests Test 12/05/16 07:23 Glucose (Fingerstick) 95 mg/dL (70-99) Current Medications: Meds: Current Medications Acetaminophen (Tylenol) 650 mg PRN Q6HRS PRN PO PAIN / TEMP; Start 11/14/16 at 19:45; Stop 11/15/16 at 17:36; Status DC Multi-Ingredient Ointment (Analgesic [place]) 1 gail PRN QID PRN TP MUSCLE PAIN; Start 11/14/16 at 19:45 Al Hydroxide/Mg Hydroxide (Mylanta Plus Xs) 15 ml PRN AFTMEALHC PRN PO DYSPEPSIA; Start 11/14/16 at 19:45 Magnesium Hydroxide (Milk Of Magnesia) 2,400 mg PRN QHS PRN PO CONSTIPATION Last administered on 11/29/16 06:28; Start 11/14/16 at 19:45 Fluoxetine HCl (PROzac) 20 mg DAILY PO ; Start 11/15/16 at 09:00; Stop 11/15/16 at 09:00; Status DC Memantine (Namenda) 10 mg BID PO Last administered on 12/05/16 09:08; Start at 21:00 Aspirin (Aspirin Enteric Coated) 81 mg DAILY PO Last administered on 12/05/16 09:07; Start 11/15/16 at 09:00 Vitamin D (Vitamin D3) 1,000 unit DAILY PO Last administered on 12/05/16 09:07 ; Start 11/15/16 at 09:00 Vitamin D (Vitamin D3) 50,000 unit WEEKLY PO ; Start 11/21/16 at 09:00; Stop 11/21 at 09:00; Status DC Cyclosporine (Restasis) 1 drop BID OU Last administered on 12/05/16 09:05; Start 11/14/16 at 21:00 Estradiol (Estrace) 1 gail 3X/WEEK VG Last administered on 12/05/16 09:10; Start 11/16/16 at 09:00 Indapamide (Lozol) 1.25 mg DAILY PO Last administered on 11/24/16 08:59; Start 11/15/16 at 09:00; Stop 11/24/16 at 19:39; Status DC Levothyroxine Sodium (Synthroid) 100 mcg DAILY06 PO Last administered on 06:31; Start 11/15/16 at 06:00 Metformin HCl (Glucophage) 500 mg BIDWMEALS PO Last administered on 12/05/16 17:27; Start 11/15/16 at 08:00 Cyanocobalamin (Vitamin B-12) 500 mcg DAILY PO Last administered on 12/05/16 09:06; Start 11/15/16 at 09:00 Fish Oil (Fish Oil) 1,000 mg BID PO Last administered on 12/05/16 09:06; Start 11/14/16 at 21:00 Losartan Potassium (Cozaar) 100 mg DAILY PO Last administered on 11/24/16 08: 55; Start 11/15/16 at 09:00; Stop 11/24/16 at 19:39; Status DC Non-Formulary Medication 10 mg DAILY PO ; Start 11/15/16 at 09:00; Stop 11/15/16 at 09:00; Status DC Magnesium Oxide (Magnesium Oxide) 200 mg DAILY PO Last administered on 09:08; Start 11/15/16 at 09:00 Fluoxetine HCl (PROzac) 40 mg DAILY PO Last administered on 11/16/16 07:49; Start 11/15/16 at 09:00; Stop 11/17/16 at 19:20; Status DC Vitamin D (Vitamin D3) 50,000 unit Q2WKS PO Last administered on 12/05/16 09: 10; Start 11/21/16 at 09:00 Pravastatin Sodium (Pravachol) 80 mg DAILY PO Last administered on 12/05/16 09 :07; Start 11/15/16 at 09:00 Coenzyme Q10 (Coenzyme Q10) 100 mg DAILY PO Last administered on 12/05/16 09: 07; Start 11/15/16 at 09:00 Acetaminophen (Tylenol) 650 mg PRN Q6HRS PRN PO PAIN / TEMP; Start 11/15/16 at 17:36 Clonidine HCl (Catapres Tts-2) 1 patch WEEKLY TD Last administered on 08:32; Start 11/17/16 at 09:00 Risperidone (RisperDAL) 0.25 mg HS SL ; Start 11/16/16 at 21:00; Stop 11/17/16 at 19:21; Status DC Risperidone (RisperDAL) 0.25 mg DAILY SL Last administered on 11/21/16 07:49; Start 11/18/16 at 09:00; Stop 11/21/16 at 18:31; Status DC Duloxetine HCl (Cymbalta) 30 mg DAILY PO Last administered on 11/20/16 08:09; Start 11/18/16 at 09:00; Stop 11/21/16 at 08:59; Status DC Duloxetine HCl (Cymbalta) 60 mg DAILY PO Last administered on 12/05/16 09:07; Start 11/21/16 at 09:00 Risperidone (RisperDAL) 0.5 mg DAILY SL Last administered on 11/22/16 08:41; Start 11/22/16 at 09:00; Stop 11/22/16 at 19:04; Status DC Risperidone (RisperDAL) 1 mg DAILY SL Last administered on 12/05/16 09:10; Start 11/23/16 at 09:00 Losartan Potassium (Cozaar) 50 mg DAILY PO Last administered on 12/05/16 09:07 ; Start 11/25/16 at 09:00 Lorazepam (Ativan) 0.25 mg PRN Q2HR PRN PO ANXIETY / AGITATION; Start 11/28/16 at 18:30 Active Scripts Active Reported Coq-10 (Ubidecarenone) 100 Mg Capsule 100 Mg PO DAILY Pravastatin Sodium 80 Mg Tablet 80 Mg PO DAILY Restasis (Cyclosporine) 1 Each Droperette 1 Drop OU BID Namenda (Memantine Hcl) 10 Mg Tablet 10 Mg PO BID Metformin Hcl 500 Mg Tablet 500 Mg PO BIDWMEALS Magnesium Oxide 250 Mg Tablet 250 Mg PO DAILY Lutein 10 Mg Tablet 10 Mg PO DAILY Levothyroxine Sodium 100 Mcg Tablet 100 Mcg PO DAILY06 [place] 3-6-9 1,200 mg Softgel (Fish Oil/Borage/Flax/Om3,6,9#1) 1,200 Mg Capsule 1 ,200 Mg PO BID Amoxicillin 500 Mg Capsule 500 Mg PO PRN DAILY PRN 4 Days [Coconut Oil] 1 Tsp PO BID Vitamin D3 (Cholecalciferol (Vitamin D3)) 50,000 Unit Capsule 50,000 Unit PO Q2WKS Vitamin D3 (Cholecalciferol (Vitamin D3)) 1,000 Unit Tablet 2,000 Unit PO DAILY Vitamin B-12 (Cyanocobalamin (Vitamin B-12)) 500 Mcg Tablet 500 Mcg PO DAILY Prozac (Fluoxetine Hcl) 20 Mg Capsule 40 Mg PO DAILY Irbesartan 300 Mg Tablet 300 Mg PO DAILY Indapamide 1.25 Mg Tablet 1.25 Mg PO DAILY Estrace (Estradiol) 42.5 Gm Cream.appl 1 Gm VG 3X/WEEK Aspir-Low (Aspirin) 81 Mg Tablet. 81 Mg PO DAILY Diagnosis: Problems: (1) Mild cognitive disorder (2) Psychosis, atypical (3) Major depressive disorder, recurrent episode (4) Psychotic depression (5) Anxiety disorder KARLEE GRIFFIN MD Dec 05, 2016 18:31
[2016-12-05] MEDS: MAGNESIUM HYDROXIDE 2,400 MG/30 ML ORAL.SUSP. PO PRN (20:18)
--- NOTE | 2016-12-06 03:18 | PN ---
DATE: 12/04/2016 PSYCHIATRIC PROGRESS NOTE This is a late entry of 12/04/2016 covers elements not covered in my initial note of 12/04/2016. I met with the patient on the evening of 12/04/2016. She is overall doing better, per nursing report, compliant with medications, attending groups. Protein and albumin are low. Hemoglobin and hematocrit are low. We will defer to Dr. Mckinley. She has had no spells of totally withdrawing, refusing everything. REVIEW OF SYSTEMS: During the day of 12/04/2016, ambulation impaired. No CV, , pulmonary, eye, ENT system symptoms on review. MENTAL STATUS EXAM: Oriented toward self, situation. Speech has some latency, coherent, abstraction fair, computation impaired. Language function intact. Retention span short, mood and affect still dysphoric, anxious but improved. No active suicidal or homicidal ideation. IMPRESSION: Unchanged from initial note. PLAN: Continue current psychotropics. Review drug interactions at length. Risk-benefit ratio favors no further change at this time. We will reassess depending on the progress. MAN Kevin GRIFFIN MD DR: VENKAT/heron JOB#: [id number] / [id number]
[2016-12-06] MEDS: LEVOTHYROXINE 100 MCG TABLET PO SCH (06:03)
[2016-12-06 06:15] VITALS: BP 135/67
[2016-12-06] MEDS: MEMANTINE 10 MG TABLET. PO SCH ×2 (09:40→20:28)
[2016-12-06] MEDS: MAGNESIUM OXIDE 400 MG TABLET PO SCH (09:40)
[2016-12-06] MEDS: CYANOCOBALAMIN (VITAMIN B-12) 250 MCG TABLET PO SCH (09:41)
[2016-12-06] MEDS: metFORMIN 500 MG TABLET PO SCH ×2 (09:41→17:06)
[2016-12-06] MEDS: OMEGA-3 FATTY ACIDS/FISH OIL 1,000 MG CAPSULE. PO SCH ×2 (09:41→20:28)
[2016-12-06] MEDS: PRAVASTATIN 20 MG TABLET. PO SCH (09:41)
[2016-12-06] MEDS: UBIDECARENONE 50 MG CAPSULE. PO SCH (09:41)
[2016-12-06] MEDS: DULoxetine HCL 60 MG CAPSULE.DR PO SCH (09:42)
[2016-12-06] MEDS: LOSARTAN 50 MG TABLET. PO SCH (09:42)
[2016-12-06] MEDS: cycloSPORINE 0.05% OPTH 1 DROP DROPERETTE OU SCH ×2 (09:42→20:28)
[2016-12-06] MEDS: CHOLECALCIFEROL (VITAMIN D3) 1,000 UNIT TABLET PO SCH (09:42)
[2016-12-06] MEDS: ASPIRIN ENTERIC COATED 81 MG TABLET.DR. PO SCH (09:42)
[2016-12-06] MEDS: risperiDONE ORAL 1 MG/ML 30ml BOTTLE. SL SCH (09:43)
[2016-12-06 16:12] VITALS: BP 138/70
--- NOTE | 2016-12-06 20:38 | PDOC ---
Exam Guzman Demential Exam: Guzman Note: Please also refer to the separate dictated note~for this date of service dictated separately.~Patient seen individually. Discussed the patient with Nursing staff reviewed the chart.~Reviewed interim history and current functioning. Reviewed vital signs,~Labs/ Radiology~and current medications noted below. Continue current treatment with the changes noted in the dictated addendum note Assessment: Vital Signs: Vital Signs Date Time Temp Pulse Resp B/P (MAP) Pulse Ox O2 Delivery O2 Flow Rate FiO2 12/06/16 16:12 98.9 79 20 138/70 (92) 100 12/04/16 05:53 Room Air I&O Intake and Output 12/06/16 06:59 Intake Total 1260 ml Balance 1260 ml Intake Oral 1260 ml Labs: Laboratory Tests Test 12/06/16 07:09 Glucose (Fingerstick) 86 mg/dL (70-99) Current Medications: Meds: Current Medications Acetaminophen (Tylenol) 650 mg PRN Q6HRS PRN PO PAIN / TEMP; Start 11/14/16 at 19:45; Stop 11/15/16 at 17:36; Status DC Multi-Ingredient Ointment (Analgesic [place]) 1 gail PRN QID PRN TP MUSCLE PAIN; Start 11/14/16 at 19:45 Al Hydroxide/Mg Hydroxide (Mylanta Plus Xs) 15 ml PRN AFTMEALHC PRN PO DYSPEPSIA; Start 11/14/16 at 19:45 Magnesium Hydroxide (Milk Of Magnesia) 2,400 mg PRN QHS PRN PO CONSTIPATION Last administered on 12/05/16 20:18; Start 11/14/16 at 19:45 Fluoxetine HCl (PROzac) 20 mg DAILY PO ; Start 11/15/16 at 09:00; Stop 11/15/16 at 09:00; Status DC Memantine (Namenda) 10 mg BID PO Last administered on 12/06/16 20:28; Start at 21:00 Aspirin (Aspirin Enteric Coated) 81 mg DAILY PO Last administered on 12/06/16 09:42; Start 11/15/16 at 09:00 Vitamin D (Vitamin D3) 1,000 unit DAILY PO Last administered on 12/06/16 09:42 ; Start 11/15/16 at 09:00 Vitamin D (Vitamin D3) 50,000 unit WEEKLY PO ; Start 11/21/16 at 09:00; Stop 11/21 at 09:00; Status DC Cyclosporine (Restasis) 1 drop BID OU Last administered on 12/06/16 20:28; Start 11/14/16 at 21:00 Estradiol (Estrace) 1 gail 3X/WEEK VG Last administered on 12/05/16 09:10; Start 11/16/16 at 09:00 Indapamide (Lozol) 1.25 mg DAILY PO Last administered on 11/24/16 08:59; Start 11/15/16 at 09:00; Stop 11/24/16 at 19:39; Status DC Levothyroxine Sodium (Synthroid) 100 mcg DAILY06 PO Last administered on 06:03; Start 11/15/16 at 06:00 Metformin HCl (Glucophage) 500 mg BIDWMEALS PO Last administered on 12/06/16 17:06; Start 11/15/16 at 08:00 Cyanocobalamin (Vitamin B-12) 500 mcg DAILY PO Last administered on 12/06/16 09:41; Start 11/15/16 at 09:00 Fish Oil (Fish Oil) 1,000 mg BID PO Last administered on 12/06/16 20:28; Start 11/14/16 at 21:00 Losartan Potassium (Cozaar) 100 mg DAILY PO Last administered on 11/24/16 08: 55; Start 11/15/16 at 09:00; Stop 11/24/16 at 19:39; Status DC Non-Formulary Medication 10 mg DAILY PO ; Start 11/15/16 at 09:00; Stop 11/15/16 at 09:00; Status DC Magnesium Oxide (Magnesium Oxide) 200 mg DAILY PO Last administered on 09:40; Start 11/15/16 at 09:00 Fluoxetine HCl (PROzac) 40 mg DAILY PO Last administered on 11/16/16 07:49; Start 11/15/16 at 09:00; Stop 11/17/16 at 19:20; Status DC Vitamin D (Vitamin D3) 50,000 unit Q2WKS PO Last administered on 12/05/16 09: 10; Start 11/21/16 at 09:00 Pravastatin Sodium (Pravachol) 80 mg DAILY PO Last administered on 12/06/16 09 :41; Start 11/15/16 at 09:00 Coenzyme Q10 (Coenzyme Q10) 100 mg DAILY PO Last administered on 12/06/16 09: 41; Start 11/15/16 at 09:00 Acetaminophen (Tylenol) 650 mg PRN Q6HRS PRN PO PAIN / TEMP; Start 11/15/16 at 17:36 Clonidine HCl (Catapres Tts-2) 1 patch WEEKLY TD Last administered on 08:32; Start 11/17/16 at 09:00 Risperidone (RisperDAL) 0.25 mg HS SL ; Start 11/16/16 at 21:00; Stop 11/17/16 at 19:21; Status DC Risperidone (RisperDAL) 0.25 mg DAILY SL Last administered on 11/21/16 07:49; Start 11/18/16 at 09:00; Stop 11/21/16 at 18:31; Status DC Duloxetine HCl (Cymbalta) 30 mg DAILY PO Last administered on 11/20/16 08:09; Start 11/18/16 at 09:00; Stop 11/21/16 at 08:59; Status DC Duloxetine HCl (Cymbalta) 60 mg DAILY PO Last administered on 12/06/16 09:42; Start 11/21/16 at 09:00 Risperidone (RisperDAL) 0.5 mg DAILY SL Last administered on 11/22/16 08:41; Start 11/22/16 at 09:00; Stop 11/22/16 at 19:04; Status DC Risperidone (RisperDAL) 1 mg DAILY SL Last administered on 12/06/16 09:43; Start 11/23/16 at 09:00 Losartan Potassium (Cozaar) 50 mg DAILY PO Last administered on 12/06/16 09:42 ; Start 11/25/16 at 09:00 Lorazepam (Ativan) 0.25 mg PRN Q2HR PRN PO ANXIETY / AGITATION; Start 11/28/16 at 18:30 Active Scripts Active Reported Coq-10 (Ubidecarenone) 100 Mg Capsule 100 Mg PO DAILY Pravastatin Sodium 80 Mg Tablet 80 Mg PO DAILY Restasis (Cyclosporine) 1 Each Droperette 1 Drop OU BID Namenda (Memantine Hcl) 10 Mg Tablet 10 Mg PO BID Metformin Hcl 500 Mg Tablet 500 Mg PO BIDWMEALS Magnesium Oxide 250 Mg Tablet 250 Mg PO DAILY Lutein 10 Mg Tablet 10 Mg PO DAILY Levothyroxine Sodium 100 Mcg Tablet 100 Mcg PO DAILY06 [place] 3-6-9 1,200 mg Softgel (Fish Oil/Borage/Flax/Om3,6,9#1) 1,200 Mg Capsule 1 ,200 Mg PO BID Amoxicillin 500 Mg Capsule 500 Mg PO PRN DAILY PRN 4 Days [Coconut Oil] 1 Tsp PO BID Vitamin D3 (Cholecalciferol (Vitamin D3)) 50,000 Unit Capsule 50,000 Unit PO Q2WKS Vitamin D3 (Cholecalciferol (Vitamin D3)) 1,000 Unit Tablet 2,000 Unit PO DAILY Vitamin B-12 (Cyanocobalamin (Vitamin B-12)) 500 Mcg Tablet 500 Mcg PO DAILY Prozac (Fluoxetine Hcl) 20 Mg Capsule 40 Mg PO DAILY Irbesartan 300 Mg Tablet 300 Mg PO DAILY Indapamide 1.25 Mg Tablet 1.25 Mg PO DAILY Estrace (Estradiol) 42.5 Gm Cream.appl 1 Gm VG 3X/WEEK Aspir-Low (Aspirin) 81 Mg Tablet. 81 Mg PO DAILY Diagnosis: Problems: (1) Anxiety disorder (2) Psychotic depression (3) Major depressive disorder, recurrent episode (4) Psychosis, atypical KARLEE GRIFFIN MD Dec 06, 2016 20:38
[2016-12-07] MEDS: LEVOTHYROXINE 100 MCG TABLET PO SCH (05:55)
[2016-12-07 06:00] VITALS: BP 147/75
[2016-12-07] MEDS: ASPIRIN ENTERIC COATED 81 MG TABLET.DR. PO SCH (07:49)
[2016-12-07] MEDS: LOSARTAN 50 MG TABLET. PO SCH (07:50)
[2016-12-07] MEDS: CHOLECALCIFEROL (VITAMIN D3) 1,000 UNIT TABLET PO SCH (07:50)
[2016-12-07] MEDS: MEMANTINE 10 MG TABLET. PO SCH ×2 (07:50→20:08)
[2016-12-07] MEDS: PRAVASTATIN 20 MG TABLET. PO SCH (07:50)
[2016-12-07] MEDS: metFORMIN 500 MG TABLET PO SCH ×2 (07:51→17:34)
[2016-12-07] MEDS: DULoxetine HCL 60 MG CAPSULE.DR PO SCH (07:51)
[2016-12-07] MEDS: cycloSPORINE 0.05% OPTH 1 DROP DROPERETTE OU SCH ×2 (07:51→20:09)
[2016-12-07] MEDS: UBIDECARENONE 50 MG CAPSULE. PO SCH (07:51)
[2016-12-07] MEDS: CYANOCOBALAMIN (VITAMIN B-12) 250 MCG TABLET PO SCH (07:51)
[2016-12-07] MEDS: MAGNESIUM OXIDE 400 MG TABLET PO SCH (07:51)
[2016-12-07] MEDS: OMEGA-3 FATTY ACIDS/FISH OIL 1,000 MG CAPSULE. PO SCH ×2 (07:51→20:08)
[2016-12-07] MEDS: ESTRADIOL 0.01% VAGINAL CREAM 42.5GM TUBE. VG SCH (07:57)
[2016-12-07] MEDS: risperiDONE ORAL 1 MG/ML 30ml BOTTLE. SL SCH (07:58)
--- NOTE | 2016-12-07 09:48 | PN ---
DATE: 12/05/2016 This is a late entry, 12/05/2016, covers elements not covered in my initial note of 12/05/2016. SUBJECTIVE: I met with the patient in the evening of 12/05/2016. At times, the patient was confused, compliant with the medications, no spells have occurred in the last day or so. REVIEW OF SYSTEMS: Ambulation impaired. No CV, , pulmonary, eye system symptoms on review. MENTAL STATUS EXAM: Oriented to herself and situation. Speech has some latency, coherent, very appreciative of my visit with her and her care here at the hospital. Abstraction fair, computation impaired, language function intact, attention span short, mood and affect showing improvement. LABORATORY DATA: Reviewed. IMPRESSION: Unchanged from initial note. PLAN: Continue current psychotropics. Adjust further as clinically indicated, reviewed drug interactions, risk/benefit ratio favors no further change at this time. KARLEE GRIFFIN MD DR: VENKAT/heron JOB#: [id number] / [id number]
--- NOTE | 2016-12-07 10:12 | PDOC ---
Exam Guzman Demential Exam: Guzman Note: Please also refer to the separate dictated note~for this date of service dictated separately.~Patient seen individually. Discussed the patient with Nursing staff reviewed the chart.~Reviewed interim history and current functioning. Reviewed vital signs,~Labs/ Radiology~and current medications noted below. Continue current treatment with the changes noted in the dictated addendum note Assessment: Vital Signs: Vital Signs Date Time Temp Pulse Resp B/P (MAP) Pulse Ox O2 Delivery O2 Flow Rate FiO2 12/07/16 07:50 74 147/75 12/07/16 06:00 98.6 18 97 12/04/16 05:53 Room Air I&O Intake and Output 12/07/16 07:00 Intake Total 1320 ml Balance 1320 ml Intake Oral 1320 ml Labs: Laboratory Tests Test 12/07/16 07:39 Glucose (Fingerstick) 113 mg/dL (70-99) H Current Medications: Meds: Current Medications Acetaminophen (Tylenol) 650 mg PRN Q6HRS PRN PO PAIN / TEMP; Start 11/14/16 at 19:45; Stop 11/15/16 at 17:36; Status DC Multi-Ingredient Ointment (Analgesic [place]) 1 gail PRN QID PRN TP MUSCLE PAIN; Start 11/14/16 at 19:45 Al Hydroxide/Mg Hydroxide (Mylanta Plus Xs) 15 ml PRN AFTMEALHC PRN PO DYSPEPSIA; Start 11/14/16 at 19:45 Magnesium Hydroxide (Milk Of Magnesia) 2,400 mg PRN QHS PRN PO CONSTIPATION Last administered on 12/05/16 20:18; Start 11/14/16 at 19:45 Fluoxetine HCl (PROzac) 20 mg DAILY PO ; Start 11/15/16 at 09:00; Stop 11/15/16 at 09:00; Status DC Memantine (Namenda) 10 mg BID PO Last administered on 12/07/16 07:50; Start at 21:00 Aspirin (Aspirin Enteric Coated) 81 mg DAILY PO Last administered on 12/07/16 07:49; Start 11/15/16 at 09:00 Vitamin D (Vitamin D3) 1,000 unit DAILY PO Last administered on 12/07/16 07:50 ; Start 11/15/16 at 09:00 Vitamin D (Vitamin D3) 50,000 unit WEEKLY PO ; Start 11/21/16 at 09:00; Stop 11/21 at 09:00; Status DC Cyclosporine (Restasis) 1 drop BID OU Last administered on 12/07/16 07:51; Start 11/14/16 at 21:00 Estradiol (Estrace) 1 gail 3X/WEEK VG Last administered on 12/05/16 09:10; Start 11/16/16 at 09:00 Indapamide (Lozol) 1.25 mg DAILY PO Last administered on 11/24/16 08:59; Start 11/15/16 at 09:00; Stop 11/24/16 at 19:39; Status DC Levothyroxine Sodium (Synthroid) 100 mcg DAILY06 PO Last administered on 05:55; Start 11/15/16 at 06:00 Metformin HCl (Glucophage) 500 mg BIDWMEALS PO Last administered on 12/07/16 07:51; Start 11/15/16 at 08:00 Cyanocobalamin (Vitamin B-12) 500 mcg DAILY PO Last administered on 12/07/16 07:51; Start 11/15/16 at 09:00 Fish Oil (Fish Oil) 1,000 mg BID PO Last administered on 12/07/16 07:51; Start 11/14/16 at 21:00 Losartan Potassium (Cozaar) 100 mg DAILY PO Last administered on 11/24/16 08: 55; Start 11/15/16 at 09:00; Stop 11/24/16 at 19:39; Status DC Non-Formulary Medication 10 mg DAILY PO ; Start 11/15/16 at 09:00; Stop 11/15/16 at 09:00; Status DC Magnesium Oxide (Magnesium Oxide) 200 mg DAILY PO Last administered on 07:51; Start 11/15/16 at 09:00 Fluoxetine HCl (PROzac) 40 mg DAILY PO Last administered on 11/16/16 07:49; Start 11/15/16 at 09:00; Stop 11/17/16 at 19:20; Status DC Vitamin D (Vitamin D3) 50,000 unit Q2WKS PO Last administered on 12/05/16 09: 10; Start 11/21/16 at 09:00 Pravastatin Sodium (Pravachol) 80 mg DAILY PO Last administered on 12/07/16 07 :50; Start 11/15/16 at 09:00 Coenzyme Q10 (Coenzyme Q10) 100 mg DAILY PO Last administered on 12/07/16 07: 51; Start 11/15/16 at 09:00 Acetaminophen (Tylenol) 650 mg PRN Q6HRS PRN PO PAIN / TEMP; Start 11/15/16 at 17:36 Clonidine HCl (Catapres Tts-2) 1 patch WEEKLY TD Last administered on 08:32; Start 11/17/16 at 09:00 Risperidone (RisperDAL) 0.25 mg HS SL ; Start 11/16/16 at 21:00; Stop 11/17/16 at 19:21; Status DC Risperidone (RisperDAL) 0.25 mg DAILY SL Last administered on 11/21/16 07:49; Start 11/18/16 at 09:00; Stop 11/21/16 at 18:31; Status DC Duloxetine HCl (Cymbalta) 30 mg DAILY PO Last administered on 11/20/16 08:09; Start 11/18/16 at 09:00; Stop 11/21/16 at 08:59; Status DC Duloxetine HCl (Cymbalta) 60 mg DAILY PO Last administered on 12/07/16 07:51; Start 11/21/16 at 09:00 Risperidone (RisperDAL) 0.5 mg DAILY SL Last administered on 11/22/16 08:41; Start 11/22/16 at 09:00; Stop 11/22/16 at 19:04; Status DC Risperidone (RisperDAL) 1 mg DAILY SL Last administered on 12/07/16 07:58; Start 11/23/16 at 09:00 Losartan Potassium (Cozaar) 50 mg DAILY PO Last administered on 12/07/16 07:50 ; Start 11/25/16 at 09:00 Lorazepam (Ativan) 0.25 mg PRN Q2HR PRN PO ANXIETY / AGITATION; Start 11/28/16 at 18:30 Active Scripts Active Reported Coq-10 (Ubidecarenone) 100 Mg Capsule 100 Mg PO DAILY Pravastatin Sodium 80 Mg Tablet 80 Mg PO DAILY Restasis (Cyclosporine) 1 Each Droperette 1 Drop OU BID Namenda (Memantine Hcl) 10 Mg Tablet 10 Mg PO BID Metformin Hcl 500 Mg Tablet 500 Mg PO BIDWMEALS Magnesium Oxide 250 Mg Tablet 250 Mg PO DAILY Lutein 10 Mg Tablet 10 Mg PO DAILY Levothyroxine Sodium 100 Mcg Tablet 100 Mcg PO DAILY06 [place] 3-6-9 1,200 mg Softgel (Fish Oil/Borage/Flax/Om3,6,9#1) 1,200 Mg Capsule 1 ,200 Mg PO BID Amoxicillin 500 Mg Capsule 500 Mg PO PRN DAILY PRN 4 Days [Coconut Oil] 1 Tsp PO BID Vitamin D3 (Cholecalciferol (Vitamin D3)) 50,000 Unit Capsule 50,000 Unit PO Q2WKS Vitamin D3 (Cholecalciferol (Vitamin D3)) 1,000 Unit Tablet 2,000 Unit PO DAILY Vitamin B-12 (Cyanocobalamin (Vitamin B-12)) 500 Mcg Tablet 500 Mcg PO DAILY Prozac (Fluoxetine Hcl) 20 Mg Capsule 40 Mg PO DAILY Irbesartan 300 Mg Tablet 300 Mg PO DAILY Indapamide 1.25 Mg Tablet 1.25 Mg PO DAILY Estrace (Estradiol) 42.5 Gm Cream.appl 1 Gm VG 3X/WEEK Aspir-Low (Aspirin) 81 Mg Tablet. 81 Mg PO DAILY Diagnosis: Problems: (1) Mild cognitive disorder (2) Psychosis, atypical (3) Major depressive disorder, recurrent episode (4) Psychotic depression (5) Anxiety disorder KARLEE GRIFFIN MD Dec 07, 2016 10:12
[2016-12-07 15:53] VITALS: BP 140/58
--- NOTE | 2016-12-07 18:47 | PN ---
DATE: 12/06/2016 This note covers elements not covered in my initial note of 12/06/2016. SUBJECTIVE: The patient staffed treatment team meeting with the entire team on morning of 12/06/2016, seen individually on two separate occasions evening of 12/06/2016. Overall, reviewed the patient's history, diagnosis, current psychotropics. She has had no further spells. Social service staff in coordination with family have arranged for her to return back to independent living with 24-hour care. Additional services provided. REVIEW OF SYSTEMS: No CV, , pulmonary, eye, ENT system symptoms on review. MENTAL STATUS EXAM: Oriented to herself and situation. Speech has some latency, coherent. Abstraction fair, computation impaired, language function intact, attention span short. Mood and affect showing improvement, less anxious, less labile, less depressed. LABORATORY DATA: Reviewed. IMPRESSION: Unchanged from initial note. PLAN: Continue current psychotropics. Reviewed and drug interactions, risk/benefit ratio favors no further changes as of now. KARLEE GRIFFIN MD DR: VENKAT/heron JOB#: [id number] / [id number]
--- NOTE | 2016-12-07 19:50 | PDOC ---
Exam Guzman Demential Exam: Guzman Note: Please also refer to the separate dictated note~for this date of service dictated separately.~Patient seen individually. Discussed the patient with Nursing staff reviewed the chart.~Reviewed interim history and current functioning. Reviewed vital signs,~Labs/ Radiology~and current medications noted below. Continue current treatment with the changes noted in the dictated addendum note Assessment: Vital Signs: Vital Signs Date Time Temp Pulse Resp B/P (MAP) Pulse Ox O2 Delivery O2 Flow Rate FiO2 12/07/16 15:53 97.3 79 19 140/58 (85) 100 12/04/16 05:53 Room Air I&O Intake and Output 12/07/16 06:59 Intake Total 1320 ml Balance 1320 ml Intake Oral 1320 ml Labs: Laboratory Tests Test 12/07/16 07:39 Glucose (Fingerstick) 113 mg/dL (70-99) H Current Medications: Meds: Current Medications Acetaminophen (Tylenol) 650 mg PRN Q6HRS PRN PO PAIN / TEMP; Start 11/14/16 at 19:45; Stop 11/15/16 at 17:36; Status DC Multi-Ingredient Ointment (Analgesic [place]) 1 gail PRN QID PRN TP MUSCLE PAIN; Start 11/14/16 at 19:45 Al Hydroxide/Mg Hydroxide (Mylanta Plus Xs) 15 ml PRN AFTMEALHC PRN PO DYSPEPSIA; Start 11/14/16 at 19:45 Magnesium Hydroxide (Milk Of Magnesia) 2,400 mg PRN QHS PRN PO CONSTIPATION Last administered on 12/05/16 20:18; Start 11/14/16 at 19:45 Fluoxetine HCl (PROzac) 20 mg DAILY PO ; Start 11/15/16 at 09:00; Stop 11/15/16 at 09:00; Status DC Memantine (Namenda) 10 mg BID PO Last administered on 12/07/16 07:50; Start at 21:00 Aspirin (Aspirin Enteric Coated) 81 mg DAILY PO Last administered on 12/07/16 07:49; Start 11/15/16 at 09:00 Vitamin D (Vitamin D3) 1,000 unit DAILY PO Last administered on 12/07/16 07:50 ; Start 11/15/16 at 09:00 Vitamin D (Vitamin D3) 50,000 unit WEEKLY PO ; Start 11/21/16 at 09:00; Stop 11/21 at 09:00; Status DC Cyclosporine (Restasis) 1 drop BID OU Last administered on 12/07/16 07:51; Start 11/14/16 at 21:00 Estradiol (Estrace) 1 gail 3X/WEEK VG Last administered on 12/05/16 09:10; Start 11/16/16 at 09:00 Indapamide (Lozol) 1.25 mg DAILY PO Last administered on 11/24/16 08:59; Start 11/15/16 at 09:00; Stop 11/24/16 at 19:39; Status DC Levothyroxine Sodium (Synthroid) 100 mcg DAILY06 PO Last administered on 05:55; Start 11/15/16 at 06:00 Metformin HCl (Glucophage) 500 mg BIDWMEALS PO Last administered on 12/07/16 17:34; Start 11/15/16 at 08:00 Cyanocobalamin (Vitamin B-12) 500 mcg DAILY PO Last administered on 12/07/16 07:51; Start 11/15/16 at 09:00 Fish Oil (Fish Oil) 1,000 mg BID PO Last administered on 12/07/16 07:51; Start 11/14/16 at 21:00 Losartan Potassium (Cozaar) 100 mg DAILY PO Last administered on 11/24/16 08: 55; Start 11/15/16 at 09:00; Stop 11/24/16 at 19:39; Status DC Non-Formulary Medication 10 mg DAILY PO ; Start 11/15/16 at 09:00; Stop 11/15/16 at 09:00; Status DC Magnesium Oxide (Magnesium Oxide) 200 mg DAILY PO Last administered on 07:51; Start 11/15/16 at 09:00 Fluoxetine HCl (PROzac) 40 mg DAILY PO Last administered on 11/16/16 07:49; Start 11/15/16 at 09:00; Stop 11/17/16 at 19:20; Status DC Vitamin D (Vitamin D3) 50,000 unit Q2WKS PO Last administered on 12/05/16 09: 10; Start 11/21/16 at 09:00 Pravastatin Sodium (Pravachol) 80 mg DAILY PO Last administered on 12/07/16 07 :50; Start 11/15/16 at 09:00; Stop 12/07/16 at 19:13; Status DC Coenzyme Q10 (Coenzyme Q10) 100 mg DAILY PO Last administered on 12/07/16 07: 51; Start 11/15/16 at 09:00 Acetaminophen (Tylenol) 650 mg PRN Q6HRS PRN PO PAIN / TEMP; Start 11/15/16 at 17:36 Clonidine HCl (Catapres Tts-2) 1 patch WEEKLY TD Last administered on 08:32; Start 11/17/16 at 09:00 Risperidone (RisperDAL) 0.25 mg HS SL ; Start 11/16/16 at 21:00; Stop 11/17/16 at 19:21; Status DC Risperidone (RisperDAL) 0.25 mg DAILY SL Last administered on 11/21/16 07:49; Start 11/18/16 at 09:00; Stop 11/21/16 at 18:31; Status DC Duloxetine HCl (Cymbalta) 30 mg DAILY PO Last administered on 11/20/16 08:09; Start 11/18/16 at 09:00; Stop 11/21/16 at 08:59; Status DC Duloxetine HCl (Cymbalta) 60 mg DAILY PO Last administered on 12/07/16 07:51; Start 11/21/16 at 09:00 Risperidone (RisperDAL) 0.5 mg DAILY SL Last administered on 11/22/16 08:41; Start 11/22/16 at 09:00; Stop 11/22/16 at 19:04; Status DC Risperidone (RisperDAL) 1 mg DAILY SL Last administered on 12/07/16 07:58; Start 11/23/16 at 09:00; Stop 12/07/16 at 19:12; Status DC Losartan Potassium (Cozaar) 50 mg DAILY PO Last administered on 12/07/16 07:50 ; Start 11/25/16 at 09:00 Lorazepam (Ativan) 0.25 mg PRN Q2HR PRN PO ANXIETY / AGITATION; Start 11/28/16 at 18:30 Risperidone (RisperDAL) 1 mg DAILY PO ; Start 12/08/16 at 09:00 Pravastatin Sodium (Pravachol) 80 mg HS PO ; Start 12/08/16 at 21:00 Active Scripts Active Reported Coq-10 (Ubidecarenone) 100 Mg Capsule 100 Mg PO DAILY Pravastatin Sodium 80 Mg Tablet 80 Mg PO DAILY Restasis (Cyclosporine) 1 Each Droperette 1 Drop OU BID Namenda (Memantine Hcl) 10 Mg Tablet 10 Mg PO BID Metformin Hcl 500 Mg Tablet 500 Mg PO BIDWMEALS Magnesium Oxide 250 Mg Tablet 250 Mg PO DAILY Lutein 10 Mg Tablet 10 Mg PO DAILY Levothyroxine Sodium 100 Mcg Tablet 100 Mcg PO DAILY06 [place] 3-6-9 1,200 mg Softgel (Fish Oil/Borage/Flax/Om3,6,9#1) 1,200 Mg Capsule 1 ,200 Mg PO BID Amoxicillin 500 Mg Capsule 500 Mg PO PRN DAILY PRN 4 Days [Coconut Oil] 1 Tsp PO BID Vitamin D3 (Cholecalciferol (Vitamin D3)) 50,000 Unit Capsule 50,000 Unit PO Q2WKS Vitamin D3 (Cholecalciferol (Vitamin D3)) 1,000 Unit Tablet 2,000 Unit PO DAILY Vitamin B-12 (Cyanocobalamin (Vitamin B-12)) 500 Mcg Tablet 500 Mcg PO DAILY Prozac (Fluoxetine Hcl) 20 Mg Capsule 40 Mg PO DAILY Irbesartan 300 Mg Tablet 300 Mg PO DAILY Indapamide 1.25 Mg Tablet 1.25 Mg PO DAILY Estrace (Estradiol) 42.5 Gm Cream.appl 1 Gm VG 3X/WEEK Aspir-Low (Aspirin) 81 Mg Tablet. 81 Mg PO DAILY Diagnosis: Problems: (1) Anxiety disorder (2) Psychotic depression (3) Major depressive disorder, recurrent episode (4) Psychosis, atypical KARLEE GRIFFIN MD Dec 07, 2016 19:50
--- NOTE | 2016-12-08 03:48 | PN ---
DATE: 12/07/2016 This note covers elements not covered in my initial note of 12/07/2016. SUBJECTIVE: I met with the patient individually in the morning of 12/07/2016. Overall, the patient has been compliant with her medications. She resents taking the liquid Risperdal and we will change it to tablet. She has had no other episodes of dissociation, appears less paranoid. REVIEW OF SYSTEMS: No CV, , pulmonary, eye, ENT system symptoms on review. MENTAL STATUS EXAM: The patient is reasonably oriented, speech is coherent, abstraction fair, computation impaired, language function intact. She is verbal, very appreciative of my visit, appreciative of the fact that she is feeling "much better" since coming here. No suicidal or homicidal ideation. LABORATORY DATA: Reviewed. IMPRESSION: Unchanged from initial note. PLAN: Continue current psychotropics. Reviewed drug interactions. Risk/benefit ratio favors no further change at this time. KARLEE GRIFFIN MD DR: VENKAT/heron JOB#: [id number] / [id number]
[2016-12-08] MEDS: LEVOTHYROXINE 100 MCG TABLET PO SCH (05:57)
[2016-12-08 06:02] VITALS: BP 118/68
[2016-12-08] MEDS: CHOLECALCIFEROL (VITAMIN D3) 1,000 UNIT TABLET PO SCH (07:34)
[2016-12-08] MEDS: cycloSPORINE 0.05% OPTH 1 DROP DROPERETTE OU SCH ×2 (07:34→19:59)
[2016-12-08] MEDS: CYANOCOBALAMIN (VITAMIN B-12) 250 MCG TABLET PO SCH (07:35)
[2016-12-08] MEDS: OMEGA-3 FATTY ACIDS/FISH OIL 1,000 MG CAPSULE. PO SCH ×2 (07:35→19:59)
[2016-12-08] MEDS: MEMANTINE 10 MG TABLET. PO SCH ×2 (07:35→19:59)
[2016-12-08] MEDS: UBIDECARENONE 50 MG CAPSULE. PO SCH (07:35)
[2016-12-08] MEDS: LOSARTAN 50 MG TABLET. PO SCH (07:35)
[2016-12-08] MEDS: DULoxetine HCL 60 MG CAPSULE.DR PO SCH (07:35)
[2016-12-08] MEDS: metFORMIN 500 MG TABLET PO SCH ×2 (07:35→17:00)
[2016-12-08] MEDS: MAGNESIUM OXIDE 400 MG TABLET PO SCH (07:36)
[2016-12-08] MEDS: ASPIRIN ENTERIC COATED 81 MG TABLET.DR. PO SCH (07:37)
[2016-12-08] MEDS: risperiDONE 1 MG TABLET. PO SCH (07:48)
[2016-12-08] MEDS: cloNIDine TTS-2 1 PATCH PATCH TD SCH (07:49)
[2016-12-08] MEDS ORDERED: ACET325T9 PO (12:03)
[2016-12-08] MEDS ORDERED: DULO60CA6 PO (12:04)
[2016-12-08] MEDS ORDERED: LORA0.5T PO (12:05)
[2016-12-08] MEDS ORDERED: MENT113G6 TP (12:14)
[2016-12-08] MEDS ORDERED: RISP1TAB43 PO (12:16)
[2016-12-08] MEDS ORDERED: MAGN2400 PO (12:42)
[2016-12-08] MEDS ORDERED: MAG355OR12 PO (12:42)
[2016-12-08 15:36] VITALS: BP 143/73
[2016-12-08] MEDS: PRAVASTATIN 20 MG TABLET. PO SCH (19:59)
[2016-12-09] MEDS: LEVOTHYROXINE 100 MCG TABLET PO SCH (05:08)
[2016-12-09 06:35] VITALS: BP 101/61
[2016-12-09] MEDS: MEMANTINE 10 MG TABLET. PO SCH ×2 (07:20→19:50)
[2016-12-09] MEDS: cycloSPORINE 0.05% OPTH 1 DROP DROPERETTE OU SCH ×2 (07:20→19:50)
[2016-12-09] MEDS: DULoxetine HCL 60 MG CAPSULE.DR PO SCH (07:20)
[2016-12-09] MEDS: MAGNESIUM OXIDE 400 MG TABLET PO SCH (07:21)
[2016-12-09] MEDS: OMEGA-3 FATTY ACIDS/FISH OIL 1,000 MG CAPSULE. PO SCH ×2 (07:21→19:50)
[2016-12-09] MEDS: risperiDONE 1 MG TABLET. PO SCH (07:22)
[2016-12-09] MEDS: ASPIRIN ENTERIC COATED 81 MG TABLET.DR. PO SCH (07:22)
[2016-12-09] MEDS: LOSARTAN 50 MG TABLET. PO SCH (07:22)
[2016-12-09] MEDS: UBIDECARENONE 50 MG CAPSULE. PO SCH (07:22)
[2016-12-09] MEDS: CYANOCOBALAMIN (VITAMIN B-12) 250 MCG TABLET PO SCH (07:22)
[2016-12-09] MEDS: CHOLECALCIFEROL (VITAMIN D3) 1,000 UNIT TABLET PO SCH (07:22)
[2016-12-09] MEDS: metFORMIN 500 MG TABLET PO SCH ×2 (07:22→17:20)
[2016-12-09 16:42] VITALS: BP 135/72
--- NOTE | 2016-12-09 19:42 | PDOC ---
Exam Guzman Demential Exam: Guzman Note: Please also refer to the separate dictated note~for this date of service dictated separately.~Patient seen individually. Discussed the patient with Nursing staff reviewed the chart.~Reviewed interim history and current functioning. Reviewed vital signs,~Labs/ Radiology~and current medications noted below. Continue current treatment with the changes noted in the dictated addendum note Assessment: Vital Signs: Vital Signs Date Time Temp Pulse Resp B/P (MAP) Pulse Ox O2 Delivery O2 Flow Rate FiO2 12/09/16 16:42 97.2 78 18 135/72 (93) 99 12/08/16 15:36 Room Air I&O Intake and Output 12/09/16 06:59 Intake Total 1440 ml Balance 1440 ml Intake Oral 1440 ml Labs: Laboratory Tests Test 12/09/16 07:12 Glucose (Fingerstick) 102 mg/dL (70-99) H Current Medications: Meds: Current Medications Acetaminophen (Tylenol) 650 mg PRN Q6HRS PRN PO PAIN / TEMP; Start 11/14/16 at 19:45; Stop 11/15/16 at 17:36; Status DC Multi-Ingredient Ointment (Analgesic [place]) 1 gail PRN QID PRN TP MUSCLE PAIN; Start 11/14/16 at 19:45 Al Hydroxide/Mg Hydroxide (Mylanta Plus Xs) 15 ml PRN AFTMEALHC PRN PO DYSPEPSIA; Start 11/14/16 at 19:45 Magnesium Hydroxide (Milk Of Magnesia) 2,400 mg PRN QHS PRN PO CONSTIPATION Last administered on 12/05/16 20:18; Start 11/14/16 at 19:45 Fluoxetine HCl (PROzac) 20 mg DAILY PO ; Start 11/15/16 at 09:00; Stop 11/15/16 at 09:00; Status DC Memantine (Namenda) 10 mg BID PO Last administered on 12/09/16 07:20; Start at 21:00 Aspirin (Aspirin Enteric Coated) 81 mg DAILY PO Last administered on 12/09/16 07:22; Start 11/15/16 at 09:00 Vitamin D (Vitamin D3) 1,000 unit DAILY PO Last administered on 12/09/16 07:22 ; Start 11/15/16 at 09:00 Vitamin D (Vitamin D3) 50,000 unit WEEKLY PO ; Start 11/21/16 at 09:00; Stop 11/21 at 09:00; Status DC Cyclosporine (Restasis) 1 drop BID OU Last administered on 12/09/16 07:20; Start 11/14/16 at 21:00 Estradiol (Estrace) 1 gail 3X/WEEK VG Last administered on 12/05/16 09:10; Start 11/16/16 at 09:00 Indapamide (Lozol) 1.25 mg DAILY PO Last administered on 11/24/16 08:59; Start 11/15/16 at 09:00; Stop 11/24/16 at 19:39; Status DC Levothyroxine Sodium (Synthroid) 100 mcg DAILY06 PO Last administered on 05:08; Start 11/15/16 at 06:00 Metformin HCl (Glucophage) 500 mg BIDWMEALS PO Last administered on 12/09/16 17:20; Start 11/15/16 at 08:00 Cyanocobalamin (Vitamin B-12) 500 mcg DAILY PO Last administered on 12/09/16 07:22; Start 11/15/16 at 09:00 Fish Oil (Fish Oil) 1,000 mg BID PO Last administered on 12/09/16 07:21; Start 11/14/16 at 21:00 Losartan Potassium (Cozaar) 100 mg DAILY PO Last administered on 11/24/16 08: 55; Start 11/15/16 at 09:00; Stop 11/24/16 at 19:39; Status DC Non-Formulary Medication 10 mg DAILY PO ; Start 11/15/16 at 09:00; Stop 11/15/16 at 09:00; Status DC Magnesium Oxide (Magnesium Oxide) 200 mg DAILY PO Last administered on 07:21; Start 11/15/16 at 09:00 Fluoxetine HCl (PROzac) 40 mg DAILY PO Last administered on 11/16/16 07:49; Start 11/15/16 at 09:00; Stop 11/17/16 at 19:20; Status DC Vitamin D (Vitamin D3) 50,000 unit Q2WKS PO Last administered on 12/05/16 09: 10; Start 11/21/16 at 09:00 Pravastatin Sodium (Pravachol) 80 mg DAILY PO Last administered on 12/07/16 07 :50; Start 11/15/16 at 09:00; Stop 12/07/16 at 19:13; Status DC Coenzyme Q10 (Coenzyme Q10) 100 mg DAILY PO Last administered on 12/09/16 07: 22; Start 11/15/16 at 09:00 Acetaminophen (Tylenol) 650 mg PRN Q6HRS PRN PO PAIN / TEMP; Start 11/15/16 at 17:36 Clonidine HCl (Catapres Tts-2) 1 patch WEEKLY TD Last administered on 07:49; Start 11/17/16 at 09:00 Risperidone (RisperDAL) 0.25 mg HS SL ; Start 11/16/16 at 21:00; Stop 11/17/16 at 19:21; Status DC Risperidone (RisperDAL) 0.25 mg DAILY SL Last administered on 11/21/16 07:49; Start 11/18/16 at 09:00; Stop 11/21/16 at 18:31; Status DC Duloxetine HCl (Cymbalta) 30 mg DAILY PO Last administered on 11/20/16 08:09; Start 11/18/16 at 09:00; Stop 11/21/16 at 08:59; Status DC Duloxetine HCl (Cymbalta) 60 mg DAILY PO Last administered on 12/09/16 07:20; Start 11/21/16 at 09:00 Risperidone (RisperDAL) 0.5 mg DAILY SL Last administered on 11/22/16 08:41; Start 11/22/16 at 09:00; Stop 11/22/16 at 19:04; Status DC Risperidone (RisperDAL) 1 mg DAILY SL Last administered on 12/07/16 07:58; Start 11/23/16 at 09:00; Stop 12/07/16 at 19:12; Status DC Losartan Potassium (Cozaar) 50 mg DAILY PO Last administered on 12/08/16 07:35 ; Start 11/25/16 at 09:00 Lorazepam (Ativan) 0.25 mg PRN Q2HR PRN PO ANXIETY / AGITATION; Start 11/28/16 at 18:30 Risperidone (RisperDAL) 1 mg DAILY PO Last administered on 12/09/16 07:22; Start 12/08/16 at 09:00 Pravastatin Sodium (Pravachol) 80 mg HS PO Last administered on 12/08/16 19:59 ; Start 12/08/16 at 21:00 Active Scripts Active Reported Milk Of Magnesia (Magnesium Hydroxide) 2,400 Mg/10 Ml Oral.susp 30 Mg PO PRN QHS PRN Maalox Maximum Strength Susp (Mag Hydrox/Al Hydrox/Simeth) 355 Ml Oral.susp 15 Ml PO PRN AFTMEALHC PRN Risperdal (Risperidone) 1 Mg Tablet 1 Mg PO DAILY Clonidine Tts-2 (Clonidine) 1 Each Patch.tdwk 1 Patch TD WEEKLY [place] (Menthol) 113 Gm Gel..gram. 1 Gm TP PRN QID PRN Lorazepam 0.5 Mg Tablet 0.25 Mg PO PRN Q2HR PRN Cymbalta (Duloxetine Hcl) 60 Mg Capsule.dr 60 Mg PO DAILY Tylenol (Acetaminophen) 325 Mg Tablet 650 Mg PO PRN Q6HRS PRN Coq-10 (Ubidecarenone) 100 Mg Capsule 100 Mg PO DAILY Pravastatin Sodium 80 Mg Tablet 80 Mg PO DAILY Restasis (Cyclosporine) 1 Each Droperette 1 Drop OU BID Namenda (Memantine Hcl) 10 Mg Tablet 10 Mg PO BID Metformin Hcl 500 Mg Tablet 500 Mg PO BIDWMEALS Magnesium Oxide 250 Mg Tablet 250 Mg PO DAILY Lutein 10 Mg Tablet 10 Mg PO DAILY Levothyroxine Sodium 100 Mcg Tablet 100 Mcg PO DAILY06 [place] 3-6-9 1,200 mg Softgel (Fish Oil/Borage/Flax/Om3,6,9#1) 1,200 Mg Capsule 1 ,200 Mg PO BID Amoxicillin 500 Mg Capsule 500 Mg PO PRN DAILY PRN 4 Days [Coconut Oil] 1 Tsp PO BID Vitamin D3 (Cholecalciferol (Vitamin D3)) 50,000 Unit Capsule 50,000 Unit PO Q2WKS Vitamin D3 (Cholecalciferol (Vitamin D3)) 1,000 Unit Tablet 2,000 Unit PO DAILY Vitamin B-12 (Cyanocobalamin (Vitamin B-12)) 500 Mcg Tablet 500 Mcg PO DAILY Prozac (Fluoxetine Hcl) 20 Mg Capsule 40 Mg PO DAILY Irbesartan 300 Mg Tablet 300 Mg PO DAILY Indapamide 1.25 Mg Tablet 1.25 Mg PO DAILY Estrace (Estradiol) 42.5 Gm Cream.appl 1 Gm VG 3X/WEEK Aspir-Low (Aspirin) 81 Mg Tablet. 81 Mg PO DAILY Diagnosis: Problems: (1) Anxiety disorder (2) Psychotic depression (3) Major depressive disorder, recurrent episode (4) Psychosis, atypical KARLEE GRIFFIN MD Dec 09, 2016 19:42
[2016-12-09] MEDS: PRAVASTATIN 20 MG TABLET. PO SCH (19:50)
[2016-12-10] MEDS ORDERED: MAGN400O7 PO (02:15)
[2016-12-10] MEDS ORDERED: METH29OI TP (02:16)
[2016-12-10] MEDS ORDERED: CLON1PAT2 TD (02:18)
[2016-12-10] MEDS: LEVOTHYROXINE 100 MCG TABLET PO SCH (05:59)
[2016-12-10 06:00] VITALS: BP 115/69
[2016-12-10] MEDS: metFORMIN 500 MG TABLET PO SCH (08:12)
[2016-12-10] MEDS: ASPIRIN ENTERIC COATED 81 MG TABLET.DR. PO SCH (08:12)
[2016-12-10] MEDS: cycloSPORINE 0.05% OPTH 1 DROP DROPERETTE OU SCH (08:12)
[2016-12-10] MEDS: UBIDECARENONE 50 MG CAPSULE. PO SCH (08:12)
[2016-12-10 08:13] VITALS: BP 115/69
[2016-12-10] MEDS: DULoxetine HCL 60 MG CAPSULE.DR PO SCH (08:13)
[2016-12-10] MEDS: LOSARTAN 50 MG TABLET. PO SCH (08:13)
[2016-12-10] MEDS: OMEGA-3 FATTY ACIDS/FISH OIL 1,000 MG CAPSULE. PO SCH (08:13)
[2016-12-10] MEDS: CYANOCOBALAMIN (VITAMIN B-12) 250 MCG TABLET PO SCH (08:14)
[2016-12-10] MEDS: CHOLECALCIFEROL (VITAMIN D3) 1,000 UNIT TABLET PO SCH (08:14)
[2016-12-10] MEDS: risperiDONE 1 MG TABLET. PO SCH (08:14)
[2016-12-10] MEDS: MEMANTINE 10 MG TABLET. PO SCH (08:14)
[2016-12-10] MEDS: MAGNESIUM OXIDE 400 MG TABLET PO SCH (08:14)
--- NOTE | 2016-12-10 20:31 | PDOC ---
Exam Guzman Demential Exam: Guzman Note: Please also refer to the separate dictated note~for this date of service dictated separately.~Patient seen individually. Discussed the patient with Nursing staff reviewed the chart.~Reviewed interim history and current functioning. Reviewed vital signs,~Labs/ Radiology~and current medications noted below. Continue current treatment with the changes noted in the dictated addendum note Assessment: Vital Signs: Vital Signs Date Time Temp Pulse Resp B/P (MAP) Pulse Ox O2 Delivery O2 Flow Rate FiO2 12/10/16 08:13 68 115/69 12/10/16 06:00 97.2 18 96 12/08/16 15:36 Room Air I&O Intake and Output 12/10/16 07:00 Intake Total 1560 ml Balance 1560 ml Intake Oral 1560 ml # Voids 2 Labs: Laboratory Tests Test 12/10/16 07:18 Glucose (Fingerstick) 103 mg/dL (70-99) H Current Medications: Meds: Current Medications Acetaminophen (Tylenol) 650 mg PRN Q6HRS PRN PO PAIN / TEMP; Start 11/14/16 at 19:45; Stop 11/15/16 at 17:36; Status DC Multi-Ingredient Ointment (Analgesic [place]) 1 gail PRN QID PRN TP MUSCLE PAIN; Start 11/14/16 at 19:45; Stop 12/10/16 at 11:41; Status DC Al Hydroxide/Mg Hydroxide (Mylanta Plus Xs) 15 ml PRN AFTMEALHC PRN PO DYSPEPSIA; Start 11/14/16 at 19:45; Stop 12/10/16 at 11:41; Status DC Magnesium Hydroxide (Milk Of Magnesia) 2,400 mg PRN QHS PRN PO CONSTIPATION Last administered on 12/05/16 20:18; Start 11/14/16 at 19:45; Stop 12/10/16 at 11:41; Status DC Fluoxetine HCl (PROzac) 20 mg DAILY PO ; Start 11/15/16 at 09:00; Stop 11/15/16 at 09:00; Status DC Memantine (Namenda) 10 mg BID PO Last administered on 12/10/16 08:14; Start at 21:00; Stop 12/10/16 at 11:41; Status DC Aspirin (Aspirin Enteric Coated) 81 mg DAILY PO Last administered on 12/10/16 08:12; Start 11/15/16 at 09:00; Stop 12/10/16 at 11:41; Status DC Vitamin D (Vitamin D3) 1,000 unit DAILY PO Last administered on 12/10/16 08:14 ; Start 11/15/16 at 09:00; Stop 12/10/16 at 11:41; Status DC Vitamin D (Vitamin D3) 50,000 unit WEEKLY PO ; Start 11/21/16 at 09:00; Stop 11/21 at 09:00; Status DC Cyclosporine (Restasis) 1 drop BID OU Last administered on 12/10/16 08:12; Start 11/14/16 at 21:00; Stop 12/10/16 at 11:41; Status DC Estradiol (Estrace) 1 gail 3X/WEEK VG Last administered on 12/05/16 09:10; Start 11/16/16 at 09:00; Stop 12/10/16 at 11:41; Status DC Indapamide (Lozol) 1.25 mg DAILY PO Last administered on 11/24/16 08:59; Start 11/15/16 at 09:00; Stop 11/24/16 at 19:39; Status DC Levothyroxine Sodium (Synthroid) 100 mcg DAILY06 PO Last administered on 05:59; Start 11/15/16 at 06:00; Stop 12/10/16 at 11:41; Status DC Metformin HCl (Glucophage) 500 mg BIDWMEALS PO Last administered on 12/10/16 08:12; Start 11/15/16 at 08:00; Stop 12/10/16 at 11:41; Status DC Cyanocobalamin (Vitamin B-12) 500 mcg DAILY PO Last administered on 12/10/16 08:14; Start 11/15/16 at 09:00; Stop 12/10/16 at 11:41; Status DC Fish Oil (Fish Oil) 1,000 mg BID PO Last administered on 12/10/16 08:13; Start 11/14/16 at 21:00; Stop 12/10/16 at 11:41; Status DC Losartan Potassium (Cozaar) 100 mg DAILY PO Last administered on 11/24/16 08: 55; Start 11/15/16 at 09:00; Stop 11/24/16 at 19:39; Status DC Non-Formulary Medication 10 mg DAILY PO ; Start 11/15/16 at 09:00; Stop 11/15/16 at 09:00; Status DC Magnesium Oxide (Magnesium Oxide) 200 mg DAILY PO Last administered on 08:14; Start 11/15/16 at 09:00; Stop 12/10/16 at 11:41; Status DC Fluoxetine HCl (PROzac) 40 mg DAILY PO Last administered on 11/16/16 07:49; Start 11/15/16 at 09:00; Stop 11/17/16 at 19:20; Status DC Vitamin D (Vitamin D3) 50,000 unit Q2WKS PO Last administered on 12/05/16 09: 10; Start 11/21/16 at 09:00; Stop 12/10/16 at 11:41; Status DC Pravastatin Sodium (Pravachol) 80 mg DAILY PO Last administered on 12/07/16 07 :50; Start 11/15/16 at 09:00; Stop 12/07/16 at 19:13; Status DC Coenzyme Q10 (Coenzyme Q10) 100 mg DAILY PO Last administered on 12/10/16 08: 12; Start 11/15/16 at 09:00; Stop 12/10/16 at 11:41; Status DC Acetaminophen (Tylenol) 650 mg PRN Q6HRS PRN PO PAIN / TEMP; Start 11/15/16 at 17:36; Stop 12/10/16 at 11:41; Status DC Clonidine HCl (Catapres Tts-2) 1 patch WEEKLY TD Last administered on 07:49; Start 11/17/16 at 09:00; Stop 12/10/16 at 11:41; Status DC Risperidone (RisperDAL) 0.25 mg HS SL ; Start 11/16/16 at 21:00; Stop 11/17/16 at 19:21; Status DC Risperidone (RisperDAL) 0.25 mg DAILY SL Last administered on 11/21/16 07:49; Start 11/18/16 at 09:00; Stop 11/21/16 at 18:31; Status DC Duloxetine HCl (Cymbalta) 30 mg DAILY PO Last administered on 11/20/16 08:09; Start 11/18/16 at 09:00; Stop 11/21/16 at 08:59; Status DC Duloxetine HCl (Cymbalta) 60 mg DAILY PO Last administered on 12/10/16 08:13; Start 11/21/16 at 09:00; Stop 12/10/16 at 11:41; Status DC Risperidone (RisperDAL) 0.5 mg DAILY SL Last administered on 11/22/16 08:41; Start 11/22/16 at 09:00; Stop 11/22/16 at 19:04; Status DC Risperidone (RisperDAL) 1 mg DAILY SL Last administered on 12/07/16 07:58; Start 11/23/16 at 09:00; Stop 12/07/16 at 19:12; Status DC Losartan Potassium (Cozaar) 50 mg DAILY PO Last administered on 12/10/16 08:13 ; Start 11/25/16 at 09:00; Stop 12/10/16 at 11:41; Status DC Lorazepam (Ativan) 0.25 mg PRN Q2HR PRN PO ANXIETY / AGITATION; Start 11/28/16 at 18:30; Stop 12/10/16 at 11:41; Status DC Risperidone (RisperDAL) 1 mg DAILY PO Last administered on 12/10/16 08:14; Start 12/08/16 at 09:00; Stop 12/10/16 at 11:41; Status DC Pravastatin Sodium (Pravachol) 80 mg HS PO Last administered on 12/09/16 19:50 ; Start 12/08/16 at 21:00; Stop 12/10/16 at 11:41; Status DC Active Scripts Active Reported Analgesic [place] (Methyl Salicylate/Menthol) 28 Gm Oint...g. 1 Gm TP PRN QID PRN Milk Of Magnesia (Magnesium Hydroxide) 400 Mg/5 Ml Oral.susp 2,400 Mg PO PRN QHS PRN Maalox Maximum Strength Susp (Mag Hydrox/Al Hydrox/Simeth) 355 Ml Oral.susp 15 Ml PO PRN AFTMEALHC PRN Risperdal (Risperidone) 1 Mg Tablet 1 Mg PO DAILY Clonidine Tts-2 (Clonidine) 1 Each Patch.tdwk 1 Patch TD WEEKLY Cymbalta (Duloxetine Hcl) 60 Mg Capsule. 60 Mg PO DAILY Tylenol (Acetaminophen) 325 Mg Tablet 650 Mg PO PRN Q6HRS PRN MDD 4000mg Coq-10 (Ubidecarenone) 100 Mg Capsule 100 Mg PO DAILY Pravastatin Sodium 80 Mg Tablet 80 Mg PO HS Restasis (Cyclosporine) 1 Each Droperette 1 Drop OU BID Namenda (Memantine Hcl) 10 Mg Tablet 10 Mg PO BID Metformin Hcl 500 Mg Tablet 500 Mg PO BIDWMEALS Magnesium Oxide 250 Mg Tablet 250 Mg PO DAILY Levothyroxine Sodium 100 Mcg Tablet 100 Mcg PO DAILY06 [place] 3-6-9 1,200 mg Softgel (Fish Oil/Borage/Flax/Om3,6,9#1) 1,200 Mg Capsule 1 ,200 Mg PO BID Vitamin D3 (Cholecalciferol (Vitamin D3)) 50,000 Unit Capsule 50,000 Unit PO Q2WKS Vitamin D3 (Cholecalciferol (Vitamin D3)) 1,000 Unit Tablet 1,000 Unit PO DAILY Vitamin B-12 (Cyanocobalamin (Vitamin B-12)) 500 Mcg Tablet 500 Mcg PO DAILY Irbesartan 300 Mg Tablet 300 Mg PO DAILY Estrace (Estradiol) 42.5 Gm Cream.appl 1 Gm VG 3X/WEEK Aspir-Low (Aspirin) 81 Mg Tablet. 81 Mg PO DAILY Diagnosis: Problems: (1) Anxiety disorder (2) Psychotic depression (3) Major depressive disorder, recurrent episode (4) Psychosis, atypical KARLEE GRIFFIN MD Dec 10, 2016 20:31
--- NOTE | 2016-12-11 10:02 | PN ---
DATE: 12/09/2016 This late entry at 12/09/2016 covers elements not covered in my initial note of 12/09/2016. I met with the patient in the evening of 12/09/2016. Overall, per nursing report, the patient has been resistive but compliant with medications, wanting explanation for each medications on the morning med pass. Fearful about others coming into her room. I processed this with her individually. No CV, , pulmonary, eye, ENT system symptoms on review. MENTAL STATUS EXAM: Oriented to herself and situation. Speech is coherent, abstraction fair, computation impaired, language function intact. Short-term memory has impairment. Mood and affect has improved. LABORATORY DATA: Reviewed. IMPRESSION: Unchanged from initial note. PLAN: Continue current psychotropics. Reviewed drug interactions. Risk/benefit ratio favors no further change as of now. MAN Kevin GRIFFIN MD DR: VENKAT/heron JOB#: [id number] / [id number]
--- NOTE | 2016-12-11 20:16 | DS ---
DATE OF DISCHARGE: 12/10/2016 DISCHARGE SUMMARY This note covers elements not covered in my initial note. REASON FOR ADMISSION: Please refer to the admission history for details. Briefly, the patient is an 81-year-old female referred to us from [facility] where she presented from [facility]/assisted living in [place], [place] on account of worsening delusion, depression, believing she was . She is tearful resistive with medications, having episodes where she was dissociating from her surroundings. She had failed outpatient psychiatric interventions. SIGNIFICANT FINDINGS AND CLINICAL COURSE: Following admission, the patient was seen daily individually by myself, followed medically per Dr. Mckinley/Dr. Morrell. She was quite depressed, having repeated episodes of dissociation unable to be even lifted up and Salty lift had to be used at times. She prefers she did not remember what it happened during those episodes, but later seemed to remember. Neurology consult was sought with Dr. Wade. EEG was completed though she refused it initially, a CT head was negative. I met with her daily individually. Adjustments were made in her psychotropics and she seemed to respond to a combination of Cymbalta 60 mg a day, Risperdal 1 mg daily, Namenda 10 mg b.i.d., Ativan p.r.n. Prior to discharge, 12/10/2016 temperature 97.2, BP 115/69, pulse 68. REVIEW OF SYSTEMS: No CV, , pulmonary, eye, ENT system symptoms on review prior to discharge. MENTAL STATUS EXAM: Oriented reasonably. Speech coherent, abstraction fair, computation impaired, language function intact. Mood and affect improved. No suicidal or homicidal ideation, no spells were noted for several days prior to discharge. FINAL DIAGNOSES: Major depressive disorder, recurrent with psychotic features, in partial remission; anxiety disorder, unspecified; cognitive disorder, unspecified; dissociative disorder. Rest diagnosis unchanged from admission. DISCHARGE MEDICATIONS: Please refer to the MRAD. DISCHARGE INSTRUCTIONS: Outpatient psychiatric and medical followup at [facility]. Time for discharge day management greater than 30 minutes. MAN Kevin GRIFFIN MD DR: VENKAT/heron JOB#: [id number] / [id number]
== END 2016-12-10 11:20 | DRG 885 ==
LOC: GEROPSY 19:08
PROVIDERS: ADMIT Psychiatry & Neurology Psychiatry; ATTEND Psychiatry & Neurology Psychiatry
DX: F33.3 Major depressive disorder, recurrent, severe with psychotic symptoms (principal); G93.40 Encephalopathy, unspecified; F03.91 Unspecified dementia, unspecified severity, with behavioral disturbance; E11.9 Type 2 diabetes mellitus without complications; I10 Essential (primary) hypertension; E03.9 Hypothyroidism, unspecified; D50.9 Iron deficiency anemia, unspecified; E78.5 Hyperlipidemia, unspecified; F41.9 Anxiety disorder, unspecified; Z66 Do not resuscitate; F60.9 Personality disorder, unspecified; F44.9 Dissociative and conversion disorder, unspecified; Z96.649 Presence of unspecified artificial hip joint; F63.9 Impulse disorder, unspecified; Z88.1 Allergy status to other antibiotic agents; Z88.8 Allergy status to other drugs, medicaments and biological substances; Z79.899 Other long term (current) drug therapy; Z79.82 Long term (current) use of aspirin; Z79.84 Long term (current) use of oral hypoglycemic drugs; Z98.41 Cataract extraction status, right eye; Z98.42 Cataract extraction status, left eye; Z90.49 Acquired absence of other specified parts of digestive tract; Z90.710 Acquired absence of both cervix and uterus; F09 Unspecified mental disorder due to known physiological condition
CPT/HCPCS: 36415; 70450; 80053; 80061; 81001; 82306; 82607; 82947; 83036; 83540; 83550; 83735; 84436; 84443; 84480; 85025; 85027; 86592; 86593; 87086; 93005; 92610; 97110; 97116; 97530; 97535